=== PATIENT | female | born 1935 | race Caucasian/White ===

== ENCOUNTER 2023-03-27 21:14 | Emergency (ER) | payer MEDICARE ==
--- NOTE | 2023-03-27 21:35 | ERPHSYRPT ---
- History of Present Illness Time Seen by Provider: 03/27/23 21:29 Source: patient Exam Limitations: no limitations Physician History: Patient had a mechanical fall just prior to arrival. She has a large skin tear on her right arm extending from wrist to mid upper arm. She also has small skin tear on her left anterior knee. No active bleeding at this time. He has some pain over the left knee and right forearm and elbow. Patient also reports hitting the right side of her head without LOC. She was on aspirin daily until 3 days ago. She denies any focal weakness, changes in speech, numbness, tingling. Occurred: just prior to arrival Reason for Fall: slipped, fell from height Injuries/Pain Location: face, upper extremity (right), lower extremity (left) Loss of Consciousness: no loss of consciousness Quality: sharpness Severity of Pain-Max: mild Severity of Pain-Current: mild Modifying Factors: Improves With: rest. Worsens With: movement Associated Symptoms (Fall): extremity injury, headache, No abdominal pain, No back pain, No confusion, No dizziness, No lightheadedness, No nausea, No neck pain, No slurred speech, No vision changes Allergies/Adverse Reactions: amoxicillin Allergy (Unknown, Verified 03/27/23 21:48) Nausea clindamycin Allergy (Unknown, Verified 03/27/23 21:48) nitrofurantoin Allergy (Unknown, Verified 03/27/23 21:48) Nausea IV contrast dye Allergy (Unknown, Uncoded 03/27/23 21:48) Home Medications: Albuterol Sulfate [Proair Digihaler] 2 puffs IH Q6H PRN PRN 03/27/23 [History] Amlodipine Besylate 5 mg [Norvasc 5 mg] 5 mg PO HS 03/27/23 [History] Ascorbic Acid 500 mg [Vitamin C 500 MG] 500 mg PO DAILY 03/27/23 [History] Atorvastatin Calcium [Lipitor] 10 mg PO 3XW 03/27/23 [History] Biotin/Lutein [Biotin Plus 5,000 Mcg Tablet] 1 each PO 3XW 03/27/23 [History] Carvedilol 3.125 mg [Coreg 3.125 MG] 3.125 mg PO BID 03/27/23 [History] Cholecalciferol (Vitamin D3) [Weekly-D] 1,250 mcg PO WEEKLY 03/27/23 [History] Cyanocobalamin (Vitamin B-12) [Vitamin B-12] 1,000 mcg PO DAILY 03/27/23 [History] Desvenlafaxine Succinate [Pristiq ER] 25 mg PO DAILY 03/27/23 [History] Desvenlafaxine Succinate [Pristiq ER] 50 mg PO DAILY 03/27/23 [History] Ezetimibe 10 mg [Zetia 10 MG] 10 mg PO DAILY 03/27/23 [History] Fluticasone/Umeclidin/Vilanter [Trelegy Ellipta 200-62.5-25] 1 each IH DAILY 03/27/23 [History] Lactobacillus Acidophilus [Acidophilus Lactobacilli] 1 each PO DAILY 03/27/23 [History] Latanoprost [Xalatan] 1 drop OP EVENING MEAL 03/27/23 [History] Levothyroxine Sodium 25 Mcg [Synthroid 25 Mcg] 25 mcg PO DAILY 03/27/23 [History] Lisinopril/Hydrochlorothiazide [Lisinopril-Hctz 20-12.5 mg Tab] 1 each PO DAILY 03/27/23 [History] Modafinil 100 mg [Provigil 100MG Tablet] 100 mg PO QAM 03/27/23 [History] Multivitamin with Minerals [Myvitalife] 1 each PO DAILY 03/27/23 [History] Nitroglycerin 0.4 mg Tablet [Nitrostat 0.4 MG Tablet] 0.4 mg SL Q5MIN PRN MR X 3 PRN 03/27/23 [History] [place] 3 Polyunsaturated Fatty 1,200 mg PO DAILY 03/27/23 [History] Pyridoxine HCl 100 mg [Vitamin B-6 (Pyridoxine) 100 MG] 100 mg PO DAILY 03/27/23 [History] Torsemide 10 mg PO DAILY 03/27/23 [History] Tumeric 1,000 mg PO DAILY 03/27/23 [History] Hx Tetanus, Diphtheria Vaccination/Date Given: No Hx Influenza Vaccination/Date Given: Yes Hx Pneumococcal Vaccination/Date Given: No - Review of Systems Constitutional: No Symptoms Eyes: No Symptoms Ears, Nose, & Throat: No Symptoms Respiratory: No Symptoms Cardiac: No Symptoms Abdominal/Gastrointestinal: No Symptoms Genitourinary Symptoms: No Symptoms Musculoskeletal: Fall, Injury, Joint Pain (left knee, right elbow) Skin: Other (skin tear right arm, left knee) Neurological: Headache, No Dizziness, No Focal Weakness, No Parasthesia, No Sensory Changes, No Speech Changes Psychological: No Symptoms Endocrine: No Symptoms Hematologic/Lymphatic: Easy Bleeding, Easy Bruising, No Blood Clots Immunological/Allergic: No Symptoms All Other Systems: Reviewed and Negative - Past Medical History Pertinent Past Medical History: Yes Cardiac History: Hypertension Musculoskeletal History: Arthritis, Osteoporosis - Past Surgical History Past Surgical History: Yes Female Surgical History: Hysterectomy Other Surgical History: BLADDER TUCK - Social History Smoking Status: Never smoker Exposure to second hand smoke: No Drug Use: none Patient Lives Alone: No - Nursing Vital Signs Nursing Vital Signs: Initial Vital Signs Pulse Rate 77 03/27/23 21:21 Respiratory Rate 20 03/27/23 21:21 Blood Pressure 154/74 03/27/23 21:21 O2 Sat by Pulse Oximetry 98 03/27/23 21:21 Pain Scale Pain Intensity 7 - Noemy Coma Score Best Eye Response ([place]emy): (4) open spontaneously Best Verbal Response ([place]): (5) oriented Best Motor Response ([place]): (6) obeys commands [place] Total: 15 - Physical Exam General Appearance: no apparent distress, alert, thin Head Injury: ecchymosis (right forehead), swelling, tenderness Eye Exam: PERRL/EOMI, eyes nml inspection ENT Exam: airway nml, hearing grossly normal Neck Exam: supple, trachea midline, full range of motion, normal alignment, normal inspection Respiratory/Chest Exam: No respiratory distress Extremity Exam: normal range of motion, pain with movement (left knee, right elbow), No swelling Neurologic Exam: alert, oriented x 3, cooperative, account contact associate II-XII nml as tested, normal mood/affect, sensation nml, No motor deficits Skin Exam: other (skin tear right arm from wrist to mid upper arm, skin tear left anterior knee) SpO2 Interpretation: normal O2 Delivery: Room Air - Course Nursing assessment & vital signs reviewed: Yes - Radiology Exams Left Knee X-ray Interpretation: Interpreted by me, No Fracture Right Elbow X-ray Interpretation: Interpreted by me, No Fracture Right Forearm X-ray Interpretation: Interpreted by me, No Fracture - CT Exams Head CT Interpretation: Negative, Tele-radiologist Report Ordered Tests: Active Orders 24 hr Category Date Time Status ELBOW (2 VIEW) Stat Exams 03/27/23 21:38 Taken FOREARM Stat Exams 03/27/23 21:38 Taken HEAD WITHOUT CONTRAST [CT] Stat Exams 03/27/23 21:37 Completed KNEE (1 OR 2 VIEW) Stat Exams 03/27/23 21:38 Taken - Progress Progress: unchanged Progress Note: X-ray showed no acute fracture or dislocation. CT head showed no acute intracranial bleed. Skin tears were cleaned with Hibiclens, Xeroform placed, wrapped in Kerlix and Antony bandage. 03/27/23 22:57 Counseled pt/family regarding: rad results Medical Desision Making - Diagnostic Testing Diagnostic test were ordered, analyzed, and reviewed by me: Yes Radiological Interpretation: Interpreted by me, Reviewed by me, Teleradiologist Report - Risk of complications Low Risk: Low risk of morbidity from additional dx testing or treatment - Departure Departure Disposition: Home Clinical Impression: Fall, Skin tear of forearm without complication, Skin tear of left lower leg without complication, Left knee pain, Left elbow pain Condition: Good Critical Care Time: No Referrals: THO RUIZ FNP [NON-STAFF PHY W/O PRIVILEGES] - Follow up/PCP as directed Instructions: Wound Care (DC), Contusion (DC), Preventing falls in adults Prescriptions: Gauze Bandage [Kerlix] 1 each TP DAILY #30 Bismuth Tribromoph/Petrolatum [Xeroform 5"X9" Gauze Strip] 1 each TP DAILY #30
[2023-03-27 21:45] VITALS: TEMP 98.2
--- NOTE | 2023-03-27 22:55 | XRAY ---
CLINICAL HISTORY:fall, head trauma COMPARISON:None. TECHNIQUE:An axial non-contrast CT scan of the brain was performed from the skull base to the high parietal region. FINDINGS: Small right frontal subgaleal hematoma noted. Special attention was paid below that area, without finding abnormalities. No contrecoup lesions. No acute intracranial abnormality is present. No evidence of acute cortical infarction, hemorrhage, mass, or mass effect. There are periventricular areas of low attenuation throughout the deep white matter. Calcified foci in basal ganglia bilaterally, non-specific. Age-related central and cortical involutional brain changes are noted. No abnormal extra-axial fluid collections are present. The posterior fossa is unremarkable. The skull base and calvarium are intact. The included portions of the paranasal sinuses and mastoid air cells are clear. The atherosclerotic calcific disease is seen in the vertebral and internal carotid arteries. IMPRESSION: 1. No acute intracranial abnormality is present. 2. Volume loss and chronic microvascular ischemic changes of the periventricular white matter are noted. 3. No fractures are seen. 4. Small right frontal subgaleal hematoma. Electronically Signed by: Tierney Machuca MD. (03/27/2023 21:52:51 BATTERY TECHNICIAN)
[2023-03-27 23:07] VITALS: BP 155/61; PULSE 78; RESP 20; O2SAT 98
--- NOTE | 2023-03-28 07:35 | XRAY ---
Indication: Pain following fall. Comparison: None 2 view right forearm demonstrates osteopenia, anterior elbow laceration with subcutaneous air, and mild anterior distal forearm soft tissue swelling. No other bony, articular, or soft tissue abnormalities.
--- NOTE | 2023-03-28 07:37 | XRAY ---
Indication: Pain following fall. Comparison: None 2 view left knee demonstrates osteopenia and mild scattered vascular calcifications. No other bony, articular, or soft tissue abnormalities.
--- NOTE | 2023-03-28 07:37 | XRAY ---
Indication: Pain following fall. Comparison: None 2 view right elbow demonstrates osteopenia, anterior laceration with subcutaneous air, and 8 mm foreign body laterally. No other bony, articular, or soft tissue abnormalities.
== END 2023-03-27 23:35 | disposition home or self-care (01) ==
LOC: ED 21:14
DX: S51.811A Laceration without foreign body of right forearm, initial encounter (principal); S81.812A Laceration without foreign body, left lower leg, initial encounter; W19.XXXA Unspecified fall, initial encounter; M25.562 Pain in left knee; M25.522 Pain in left elbow; M25.521 Pain in right elbow; I10 Essential (primary) hypertension; Z79.899 Other long term (current) drug therapy
CPT/HCPCS: 70450; 73070; 73090; 73560; 99283

== ENCOUNTER 2024-01-12 10:57 | Observation (INO) | payer MEDICARE ==
--- NOTE | 2024-01-12 11:40 | ERPHSYRPT ---
- History of Present Illness Time Seen by Provider: 01/12/24 11:20 Source: patient Exam Limitations: no limitations Physician History: Pt states her dog injured the top of her left foot 3 weeks ago and her right foot 1 week ago with redness, tenderness and swelling the same day of the injuries. Pt states she fell yesterday in the kitchen injuring her left upper back, left leg and right hand; denies LOC and states she "just falls". Pt denies abdominal pain, vomiting, diarrhea; admits to nausea for the past 5 days. Allergies/Adverse Reactions: amoxicillin Allergy (Unknown, Verified 03/27/23 21:48) Nausea clindamycin Allergy (Unknown, Verified 03/27/23 21:48) nitrofurantoin Allergy (Unknown, Verified 03/27/23 21:48) Nausea Sulfa (Sulfonamide Antibiotics) Allergy (Verified 01/12/24 11:17) vancomycin Allergy (Verified 01/12/24 16:51) IV contrast dye Allergy (Unknown, Uncoded 03/27/23 21:48) Home Medications: Albuterol Sulfate [Proair Digihaler] 2 puffs IH Q6H PRN PRN 03/27/23 [History] Amlodipine Besylate 5 mg [Norvasc 5 mg] 5 mg PO HS 03/27/23 [History] Ascorbic Acid 500 mg [Vitamin C 500 MG] 500 mg PO DAILY 03/27/23 [History] Atorvastatin Calcium [Lipitor] 10 mg PO 3XW 03/27/23 [History] Biotin/Lutein [Biotin Plus 5,000 Mcg Tablet] 1 each PO 3XW 03/27/23 [History] Carvedilol 3.125 mg [Coreg 3.125 MG] 3.125 mg PO BID 03/27/23 [History] Cholecalciferol (Vitamin D3) [Weekly-D] 1,250 mcg PO WEEKLY 03/27/23 [History] Cyanocobalamin (Vitamin B-12) [Vitamin B-12] 1,000 mcg PO DAILY 03/27/23 [History] Desvenlafaxine Succinate [Pristiq ER] 25 mg PO DAILY 03/27/23 [History] Desvenlafaxine Succinate [Pristiq ER] 50 mg PO DAILY 03/27/23 [History] Ezetimibe 10 mg [Zetia 10 MG] 10 mg PO DAILY 03/27/23 [History] Fluticasone/Umeclidin/Vilanter [Trelegy Ellipta 200-62.5-25] 1 each IH DAILY 03/27/23 [History] Lactobacillus Acidophilus [Acidophilus Lactobacilli] 1 each PO DAILY 03/27/23 [History] Latanoprost [Xalatan] 1 drop OP EVENING MEAL 03/27/23 [History] Levothyroxine Sodium 25 Mcg [Synthroid 25 Mcg] 25 mcg PO DAILY 03/27/23 [History] Lisinopril/Hydrochlorothiazide [Lisinopril-Hctz 20-12.5 mg Tab] 1 each PO DAILY 03/27/23 [History] Modafinil 100 mg [Provigil 100MG Tablet] 100 mg PO QAM 03/27/23 [History] Multivitamin with Minerals [Myvitalife] 1 each PO DAILY 03/27/23 [History] Nitroglycerin 0.4 mg Tablet [Nitrostat 0.4 MG Tablet] 0.4 mg SL Q5MIN PRN MR X 3 PRN 03/27/23 [History] [place] 3 Polyunsaturated Fatty 1,200 mg PO DAILY 03/27/23 [History] Pyridoxine HCl 100 mg [Vitamin B-6 (Pyridoxine) 100 MG] 100 mg PO DAILY 03/27/23 [History] Torsemide 10 mg PO DAILY 03/27/23 [History] Tumeric 1,000 mg PO DAILY 03/27/23 [History] Hx Tetanus, Diphtheria Vaccination/Date Given: No Hx Influenza Vaccination/Date Given: Yes Hx Pneumococcal Vaccination/Date Given: No - Review of Systems Respiratory: Dyspnea Cardiac: No Chest Pain Abdominal/Gastrointestinal: Nausea, No Abdominal Pain, No Vomiting, No Diarrhea Musculoskeletal: Back Pain (left upper back) Neurological: Other (frequent falls) - Past Medical History Pertinent Past Medical History: Yes Neurological History: No Pertinent History ENT History: Cataracts Cardiac History: Peripheral Vascular Disease Respiratory History: COPD Endocrine Medical History: Other Musculoskeletal History: Osteoarthritis, Osteoporosis GI Medical History: No Pertinent History History: Renal Disease Psycho-Social History: No Pertinent History Female Reproductive Disorders: Other Other Medical History: PT. REPORTS MULTIPLE FALL HX. PT. WENT TO [facility] PT. RE PORTS DECREASED KIDNEY FUNCTION. PT. REPORTS STENT IN LE. PT. REPORTS R KNEE PN D/T OA. PT. HAD CORTIOSNE INJECTIONS IN R KNEE. HX BILATERAL LASHELL. BILATERAL ANKLE EDEMA. - Past Surgical History Past Surgical History: Yes Neuro Surgical History: No Pertinent History Cardiac: No Pertinent History Respiratory: No Pertinent History Gastrointestinal: No Pertinent History Genitourinary: No Pertinent History Musculoskeletal: Joint Replacement Female Surgical History: Hysterectomy Other Surgical History: BLADDER TUCK - Social History Smoking Status: Never smoker Exposure to second hand smoke: No Drug Use: none Patient Lives Alone: No - Nursing Vital Signs Nursing Vital Signs: Initial Vital Signs Temperature 96.8 F 01/12/24 11:20 Pulse Rate 72 01/12/24 11:20 Respiratory Rate 18 01/12/24 11:20 Blood Pressure 157/68 01/12/24 11:20 O2 Sat by Pulse Oximetry 95 01/12/24 11:20 Pain Scale Pain Intensity 0 - Physical Exam General Appearance: alert Eye Exam: eyes nml inspection Ears, Nose, Throat Exam: TMs normal, pharynx normal Neck Exam: normal inspection Respiratory Exam: normal breath sounds Cardiovascular Exam: normal heart sounds Gastrointestinal/Abdomen Exam: normal bowel sounds Back Exam: point tenderness (moderate tenderness over an erythematous area on the left upper back) Extremity Exam: tenderness (mild tenderness over both legs and feet with ~ 1 cm ulcer over each foot dorsum; mild edema and erythema of legs and feet; tenderness of right 5th knuckle.) Neurologic Exam: alert, cooperative - Radiology Exams Right Lower Leg X-ray Interpretation: Discussed w/ radiologist (See report) Right Foot X-ray Interpretation: Discussed w/ radiologist (See report) Left Lower Leg X-ray Interpretation: Discussed w/ radiologist (See report) Left Foot X-ray Interpretation: Discussed w/ radiologist (See report) - CT Exams Head CT Interpretation: Discussed w/radiologist (Continued nonacute senile brain) Chest CT Interpretation: Tele-radiologist Report (No acute findings) Abdomen/Pelvis CT Interpretation: Tele-radiologist Report (No acute findings) - Radiology Ultrasound Exam Venous Lower Extremity Ultrasound: discussed w/radiologist (Left and right legs negative for DVT.) Ordered Tests: Active Orders 24 hr Category Date Time Status EKG-ER Only STAT Care 01/12/24 11:45 Active IV Insertion STAT Care 01/12/24 11:45 Active ABDOMEN AND PELVIS W/0 CONTRAS [CT] Stat Exams 01/12/24 11:46 Completed CHEST WITHOUT CONTRAST [CT] Stat Exams 01/12/24 11:47 Completed FOOT (MINIMUM 3 VIEWS) Stat Exams 01/12/24 11:48 Completed FOOT (MINIMUM 3 VIEWS) Stat Exams 01/12/24 11:50 Completed HEAD WITHOUT CONTRAST [CT] Stat Exams 01/12/24 11:47 Completed LOWER LEG Stat Exams 01/12/24 11:48 Completed LOWER LEG Stat Exams 01/12/24 11:50 Completed VENOUS BILATERAL EXTREMITY [US] Stat Exams 01/12/24 11:51 Taken AMYLASE Stat Lab 01/12/24 11:45 Completed BLOOD CULTURE Stat Lab 01/12/24 12:11 Received CBC W DIFF Stat Lab 01/12/24 11:45 Completed CMP Stat Lab 01/12/24 11:45 Completed CULTURE,URINE Stat Lab 01/12/24 11:45 Received LIPASE Stat Lab 01/12/24 11:45 Completed TROPONIN Q4H Lab 01/12/24 11:45 Completed TROPONIN Q4H Lab 01/12/24 15:59 Completed TROPONIN Q4H Lab 01/12/24 19:45 Ordered UA W/RFX UR CULTURE Stat Lab 01/12/24 11:45 Completed Medication Summary Generic Name Dose Route Start Last Admin Trade Name Freq PRN Reason Stop Dose Admin Vancomycin HCl 1 gm in 200 mls @ 125 mls/hr 01/12/24 12:00 01/12/24 17:14 Vancomycin 1 Gram/200 Ml Bag IV 02/11/24 11:59 Infused Q12H JOELLEN Infusion Discontinued Medications Generic Name Dose Route Start Last Admin Trade Name Freq PRN Reason Stop Dose Admin Sodium Chloride 1,000 mls @ 999 mls/hr 01/12/24 11:45 01/12/24 13:13 Sodium Chloride 0.9% 1000 Ml IV 01/12/24 12:45 Infused .Q1H1M STA Infusion Ceftriaxone Sodium 1 gm in 100 mls @ 200 mls/hr 01/12/24 11:52 01/12/24 12:57 Rocephin 1 Gm / 100 Ml Nacl IV 01/12/24 12:21 Infused STAT ONE Infusion Sodium Chloride Confirm 01/12/24 11:55 Sodium Chloride 0.9% 1000 Ml Administered 01/12/24 11:56 Dose 1,000 mls @ ud .ROUTE .STK-MED ONE Ceftriaxone Sodium Confirm 01/12/24 12:11 Rocephin 1 Gm / 100 Ml Nacl Administered 01/12/24 12:12 Dose 1 gm in 100 mls @ ud IV .STK-MED ONE Sodium Chloride 1,000 mls @ 999 mls/hr 01/12/24 16:22 01/12/24 16:27 Sodium Chloride 0.9% 1000 Ml IV 01/12/24 17:22 999 mls/hr .Q1H1M STA Administration Sodium Chloride Confirm 01/12/24 16:24 Sodium Chloride 0.9% 1000 Ml Administered 01/12/24 16:25 Dose 1,000 mls @ ud .ROUTE .STK-MED ONE Ondansetron HCl 4 mg 01/12/24 11:45 01/12/24 12:03 Ondansetron Hcl 4 Mg/2 Ml Vial IV 01/12/24 11:46 4 mg STAT ONE Administration Ondansetron HCl Confirm 01/12/24 11:55 Ondansetron Hcl 4 Mg/2 Ml Vial Administered 01/12/24 11:56 Dose 4 mg .ROUTE .STK-MED ONE Lab/Rad Data: Laboratory Result Diagrams 01/12/24 11:45 01/12/24 11:45 Laboratory Results 01/12/24 01/12/24 01/12/24 Range/Units 15:59 11:45 11:45 WBC 6.5 (3.98-10.04) x10^3/uL RBC 3.66 L (3.93-5.22) x10^6/uL Hgb 11.5 (11.2-15.7) g/dL Hct 35.2 (34.1-44.9) % MCV 96.2 H (79.4-94.8) fL MCH 31.4 (25.6-32.2) pg MCHC 32.7 (32.2-35.5) g/dL RDW 13.7 (11.7-14.4) % Plt Count 218 (182-369) x10^3/uL MPV 11.8 (9.4-12.3) fL Gran % 71.0 (34.0-71.1) % Immature Gran % (Auto) 0.2 (0.001-0.429) % Nucleat RBC Rel Count 0.0 (0.00-0.2) % Eos # (Auto) 0.16 (0.04-0.36) x10^3/uL Immature Gran # (Auto) 0.01 (0.001-0.031) x10^3u/L Absolute Lymphs (auto) 0.94 L (1.18-3.74) x10^3/uL Absolute Monos (auto) 0.71 (0.24-0.86) x10^3/uL Absolute Nucleated RBC 0.00 (0.00-0.012) x10^3u/L Lymphocytes % 14.5 L (19.3-51.7) % Monocytes % 11.0 (4.7-12.5) % Eosinophils % 2.5 (0.7-5.8) % Basophils % 0.8 (0.1-1.2) % Absolute Granulocytes 4.60 (1.56-6.13) x10^3/uL Basophils # 0.05 (0.01-0.08) x10^3/uL Sodium 137 (135-145) mmol/L Potassium 4.7 (3.5-5.1) mmol/L Chloride 103 (98-107) mmol/L Carbon Dioxide 24 (22-30) mmol/L Anion Gap 14.7 (5-15) MEQ/L BUN 57 H (7-17) mg/dL Creatinine 2.33 H (0.52-1.04) mg/dL Estimated GFR 19.8 ML/MIN Glucose 98 (74-106) mg/dL Calcium 9.5 (8.4-10.2) mg/dL Total Bilirubin 0.40 (0.2-1.3) mg/dL AST 57 H (14-36) U/L ALT 39 H (0-35) U/L Alkaline Phosphatase 56 (38-126) U/L Troponin I < 0.012 < 0.012 (0.000-0.033) ng/mL Serum Total Protein 6.5 (6.3-8.2) g/dL Albumin 3.9 (3.5-5.0) g/dL Amylase 143 H (30-110) U/L Lipase 248 (23-300) U/L Urine Color (Yellow) Urine Appearance (Clear) Urine pH (4.6-8.0) Ur Specific [place] (1.005-1.030) Urine Protein (Negative) Urine Glucose (UA) (Negative) mg/dL Urine Ketones (Negative) Urine Blood (Negative) Urine Nitrite (Negative) Urine Bilirubin (Negative) Urine Urobilinogen (0.2) mg/dL Ur Leukocyte Esterase (Negative) Urine Microscopic RBC (0-5) /HPF Urine Microscopic WBC (0-5) /HPF Ur Epithelial Cells (None Seen) /HPF Urine Bacteria (None Seen) /HPF Urine Culture Reflexed (NO) 01/12/24 Range/Units 11:45 WBC (3.98-10.04) x10^3/uL RBC (3.93-5.22) x10^6/uL Hgb (11.2-15.7) g/dL Hct (34.1-44.9) % MCV (79.4-94.8) fL MCH (25.6-32.2) pg MCHC (32.2-35.5) g/dL RDW (11.7-14.4) % Plt Count (182-369) x10^3/uL MPV (9.4-12.3) fL Gran % (34.0-71.1) % Immature Gran % (Auto) (0.001-0.429) % Nucleat RBC Rel Count (0.00-0.2) % Eos # (Auto) (0.04-0.36) x10^3/uL Immature Gran # (Auto) (0.001-0.031) x10^3u/L Absolute Lymphs (auto) (1.18-3.74) x10^3/uL Absolute Monos (auto) (0.24-0.86) x10^3/uL Absolute Nucleated RBC (0.00-0.012) x10^3u/L Lymphocytes % (19.3-51.7) % Monocytes % (4.7-12.5) % Eosinophils % (0.7-5.8) % Basophils % (0.1-1.2) % Absolute Granulocytes (1.56-6.13) x10^3/uL Basophils # (0.01-0.08) x10^3/uL Sodium (135-145) mmol/L Potassium (3.5-5.1) mmol/L Chloride (98-107) mmol/L Carbon Dioxide (22-30) mmol/L Anion Gap (5-15) MEQ/L BUN (7-17) mg/dL Creatinine (0.52-1.04) mg/dL Estimated GFR ML/MIN Glucose (74-106) mg/dL Calcium (8.4-10.2) mg/dL Total Bilirubin (0.2-1.3) mg/dL AST (14-36) U/L ALT (0-35) U/L Alkaline Phosphatase (38-126) U/L Troponin I (0.000-0.033) ng/mL Serum Total Protein (6.3-8.2) g/dL Albumin (3.5-5.0) g/dL Amylase (30-110) U/L Lipase (23-300) U/L Urine Color Yellow (Yellow) Urine Appearance Clear (Clear) Urine pH 6.5 (4.6-8.0) Ur Specific [place] 1.010 (1.005-1.030) Urine Protein Negative (Negative) Urine Glucose (UA) Negative (Negative) mg/dL Urine Ketones Negative (Negative) Urine Blood Negative (Negative) Urine Nitrite Positive A (Negative) Urine Bilirubin Negative (Negative) Urine Urobilinogen 0.2 (0.2) mg/dL Ur Leukocyte Esterase Large A (Negative) Urine Microscopic RBC 0-2 (0-5) /HPF Urine Microscopic WBC 51-100 A (0-5) /HPF Ur Epithelial Cells Moderate A (None Seen) /HPF Urine Bacteria Many A (None Seen) /HPF Urine Culture Reflexed YES (NO) - Progress Progress: unchanged Discussed with : Emile (Spoke with & discussed pt with Dr. Conway([id number]) - OBS) Counseled pt/family regarding: lab results, diagnosis, rad results Medical Desision Making - Diagnostic Testing Diagnostic test were ordered, analyzed, and reviewed by me: Yes Radiological Interpretation: Discussed w/ radiologist - Departure Departure Disposition: Observation Clinical Impression: Cellulitis of legs & feet, UTI (urinary tract infection), Nausea, Contusion of upper back, Contusion of left leg, Fall Condition: Stable Critical Care Time: No Referrals: MASSIEL RODRÍGUEZ MD [Primary Care Provider] - Follow up/PCP as directed
[2024-01-12] MEDS ORDERED: Zofran 4 MG/2 ML VIAL ONE (11:55)
[2024-01-12] MEDS ORDERED: Sodium Chloride 0.9% 1000 ML 1,000 ML ONE ×2 (11:55→16:24)
[2024-01-12] MEDS: Sodium Chloride 0.9% 1000 ML 1,000 ML IV STA ×2 (12:02→16:27)
[2024-01-12] MEDS: Zofran 4 MG/2 ML VIAL IV ONE (12:03)
[2024-01-12] MEDS ORDERED: ROCEPHIN 1 GM / 100 ML NaCl 1 GM/100 ML IVPB IV ONE (12:11)
[2024-01-12] MEDS: ROCEPHIN 1 GM / 100 ML NaCl 1 GM/100 ML IVPB IV ONE (12:12)
[2024-01-12 12:21] LABS: BASOPHIL % 0.8 % (0.1-1.2); Basophil (Absolute #) 0.05 x10^3/uL (0.01-0.08); Eosinophil % 2.5 % (0.7-5.8); Eosinophil (Absolute #) 0.16 x10^3/uL (0.04-0.36); Hematocrit 35.2 % (34.1-44.9); Hemoglobin 11.5 g/dL (11.2-15.7); IMMATURE GRAN # 0.01 x10^3u/L (0.001-0.031); IMMATURE GRAN % 0.2 % (0.001-0.429); Lymphocyte (Absolute #) 0.94 x10^3/uL (1.18-3.74); Lymphocytes % 14.5 % (19.3-51.7); Mean Cell Volume 96.2 fL (79.4-94.8); Mean Corpuscular Hemoglobin 31.4 pg (25.6-32.2); Mean Corpuscular Hgb Concent. 32.7 g/dL (32.2-35.5); Mean Platelet Volume 11.8 fL (9.4-12.3); Monocyte (Absolute #) 0.71 x10^3/uL (0.24-0.86); Platelet Count 218 x10^3/uL (182-369); Red Blood Count 3.66 x10^6/uL (3.93-5.22); Red Cell Distribution Width 13.7 % (11.7-14.4); White Blood Count 6.5 x10^3/uL (3.98-10.04)
[2024-01-12 12:39] LABS: ALBUMIN 3.9 g/dL (3.5-5.0); ALKALINE PHOSPHATASE 56 U/L (38-126); AMYLASE 143 U/L (30-110); ANION GAP 14.7 MEQ/L (5-15); BLOOD UREA NITROGEN 57 mg/dL (7-17); CHLORIDE 103 mmol/L (98-107); Calcium 9.5 mg/dL (8.4-10.2); Carbon Dioxide 24 mmol/L (22-30); Creatinine 1 2.33 mg/dL (0.52-1.04); EST GLOMERULAR FILTRATION RATE 19.8 ML/MIN; Glucose 98 mg/dL (74-106); LIPASE 248 U/L (23-300); Potassium 4.7 mmol/L (3.5-5.1); SGOT/AST 57 U/L (14-36); SGPT/ALT 39 U/L (0-35); SODIUM 137 mmol/L (135-145); TROPONIN < 0.012 ng/mL (0.000-0.033); Total Protein 6.5 g/dL (6.3-8.2)
--- NOTE | 2024-01-12 12:42 | XRAY ---
Indication: Pain following fall days ago. Comparison: None 2 view left lower leg demonstrates osteopenia and mild distal superficial femoral artery calcifications. No other bony, articular, or soft tissue abnormalities.
--- NOTE | 2024-01-12 12:44 | XRAY ---
Indication: Pain following fall days ago. Comparison: None 2 view right lower leg demonstrates osteopenia, mild distal superficial femoral artery calcifications, and proximal popliteal artery stent. No other bony, articular, or soft tissue abnormalities.
--- NOTE | 2024-01-12 12:44 | XRAY ---
Indication: Pain following fall days ago. Comparison: None 3 nonweightbearing views left foot demonstrates osteopenia. No other bony, articular, or soft tissue abnormalities.
--- NOTE | 2024-01-12 12:46 | XRAY ---
Indication: Pain following fall days ago. Comparison: None 3 nonweightbearing views right foot demonstrates osteopenia, mild 1st/2nd MTP degenerative changes, and incidental tiny navicular/cuboid accessory ossicles. No other bony, articular, or soft tissue abnormalities
[2024-01-12 12:56] LABS: Appearance Clear (Clear); Bilirubin Negative (Negative); Blood Negative (Negative); Glucose, Urine Negative (Negative); Ketones Negative (Negative); Leukocyte Esterase Large (Negative); Nitrite Positive (Negative); Ph 6.5 (4.6-8.0); Protein,Urine Dip Negative (Negative); Urobilinogen 0.2 mg/dL (0.2)
--- NOTE | 2024-01-12 13:28 | XRAY ---
Indication: Status post fall. Multiple contiguous axial images obtained through the head without contrast. Comparison: March 27, 2023. Age-appropriate global atrophy and mild periventricular degenerative micro-ischemia bilaterally. No acute intracranial hemorrhage, abnormal extra-axial fluid collection, or mass effect. Fourth ventricle is midline. Diffuse ventricle prominence unchanged. Bony calvarium intact. Visualized paranasal sinuses and mastoid air cells are clear. Impression: Continued nonacute senile brain.
--- NOTE | 2024-01-12 13:32 | XRAY ---
Indication: Pain following fall. Dyspnea. Multiple contiguous axial images obtained through the chest without contrast. Comparison: None Moderate diffuse centrilobular pulmonary emphysema, scattered fibrosis/scarring, mild left lower lobe subsegmental atelectasis/scarring, and a few right lung calcified granulomas. Peripheral left upper lobe demonstrates 4 mm noncalcified nodule. No infiltrate, effusion, or pneumothorax. Heart is not enlarged with scattered coronary calcifications. Aorta mildly atherosclerotic without aneurysm. Tiny right suprahilar calcified nodes. No pathologic mediastinal lymphadenopathy. Bony thorax intact with osteopenia and mild degenerative changes throughout the spine.. Superior endplate T5 demonstrates concave deformity either remote endplate fracture versus Schmorl node. CT abdomen/pelvis reported separately. Impression: 1. 4 mm indeterminate left upper lobe noncalcified micronodule. Findings too small for PET/CT. Recommend follow-up per Fleischner guidelines. 2. Chronic findings including pulmonary emphysema, atelectasis/fibrosis/scarring, arteriosclerotic disease, chronic bony findings, and old granulomatous disease. 3. No acute findings on this noncontrast exam.
--- NOTE | 2024-01-12 13:36 | XRAY ---
Indication: Nausea. Status post fall. Multiple contiguous axial images obtained through the abdomen and pelvis without contrast. Comparison: None CT chest reported separately. Bilateral hip arthroplasty versus beam artifact limiting these levels. Noncontrasted stomach and bowel loops appear nonobstructed. There is moderate diffuse scattered colonic fecal debris throughout. Scattered sigmoid diverticulosis without diverticulitis. Previous hysterectomy. No free fluid/air. Remaining liver, gallbladder, pancreas, spleen, adrenal glands, kidneys, ureters, and bladder are unremarkable for noncontrast exam. Moderate scattered aortoiliac calcifications without AAA. Osseous structures intact with osteopenia, mild/moderate multilevel degenerative spondylosis greatest lower lumbar spine, 3 mm anterolisthesis L3 on L4, and 5 mm anterolisthesis L4 on L5. Impression: 1. Beam artifact from bilateral hip arthroplasty. 2. Moderate diffuse fecal stasis. 3. Chronic findings including sigmoid diverticulosis, arteriosclerotic disease, and chronic bony findings. 4. No acute findings on this noncontrast exam.
[2024-01-12 14:27] LABS: WBC 51-100 /HPF (0-5)
[2024-01-12 14:29] LABS: Bacteria Many /HPF (None Seen); Epithelial Cells Moderate /HPF (None Seen); RBC 0-2 /HPF (0-5)
[2024-01-12 14:31] LABS: ADD URINE CULTURE? YES (NO)
[2024-01-12] MEDS ORDERED: VANCOMYCIN 1 GRAM/200 ML BAG 1 GM/200 ML PIGGYBACK IV ONE (15:25)
[2024-01-12] MEDS: VANCOMYCIN 1 GRAM/200 ML BAG 1 GM/200 ML PIGGYBACK IV SCH (15:26)
--- NOTE | 2024-01-12 18:51 | XRAY ---
Indication: Swelling and pain. Two-dimensional sonogram and color Doppler imaging major venous vessels left and right leg performed. Comparison: None No thrombus seen in the examined deep venous vessels left and right leg including greater saphenous vein. Veins demonstrate normal compressibility. Venous waveforms are normal with and without augmentation. Impression: Left and right legs negative for DVT.
[2024-01-12] MEDS ORDERED: TYLENOL 325 MG PO PRN (19:35)
[2024-01-12] MEDS ORDERED: Zofran 4 MG/2 ML VIAL IV PRN (19:35)
[2024-01-12] MEDS ORDERED: Docusate Sodium 100 MG PO PRN (20:05)
[2024-01-12] MEDS ORDERED: Nitrostat 0.4 MG Tablet SL PRN (20:40)
[2024-01-12] MEDS ORDERED: NON-FORMULARY ITEM (Atorvastatin Calcium 10 MG Tablet) PO SCH (20:45)
[2024-01-12] MEDS ORDERED: BIOTIN PO SCH (20:45)
[2024-01-12] MEDS ORDERED: CHOLECALCIFEROL 1250 MCG PO SCH (20:45)
[2024-01-12] MEDS ORDERED: LUTEIN PO SCH (20:45)
[2024-01-12] MEDS: Sodium Chloride 0.9% 1000 ML 1,000 ML IV SCH (21:59)
[2024-01-12] MEDS: Zyvox 600 MG IV PREMIX*** 300 ML IV SCH (22:41)
--- NOTE | 2024-01-12 22:41 | PCM.HP ---
History of Present Illness - Chief Complaint Chief Complaint: Cellulitis of legs & feet; UTI; Nausea; Fall; Contusion of upper back Date: 01/12/24 History of Present Illness: is a 88 year old female who presented to the ED stating that her dog injured the top of her left foot 3 weeks ago and her right foot 1 week ago with redness, and she developed tenderness and swelling the same day of the injuries. She states that she was recently placed on oral doxycycline without improvement. Additonally, the patient states she fell yesterday in the kitchen injuring her left upper back, left leg and right hand; denies LOC and states she "just falls". Pt denies abdominal pain, vomiting, diarrhea; admits to nausea for the past 5 days. In the ED, there was concern about bilateral leg cellulitis and also a UTI. The patient developed some erythematous skin streaking after receiving vancomycin, so this was discontinued. - Review of Systems Constitutional: No Symptoms Eyes: No Symptoms Ears, Nose, & Throat: No Symptoms Respiratory: No Symptoms Cardiac: Edema Abdominal/Gastrointestinal: No Symptoms Genitourinary Symptoms: No Symptoms Musculoskeletal: Fall, Injury Skin: Rash Neurological: No Symptoms Psychological: No Symptoms Endocrine: No Symptoms Hematologic/Lymphatic: No Symptoms Immunological/Allergic: No Symptoms All Other Systems: Reviewed and Negative Medications & Allergies Home Medications: Home Medication List Albuterol Sulfate [Proair Digihaler] 2 puffs IH Q6H PRN PRN 03/27/23 [History Confirmed 03/27/23] Ascorbic Acid 500 mg [Vitamin C 500 MG] 500 mg PO DAILY 03/27/23 [History Confirmed 01/12/24] Atorvastatin Calcium [Lipitor] 5 mg PO 3XW 03/27/23 [History Confirmed 01/12/24] Biotin/Lutein [Biotin Plus 5,000 Mcg Tablet] 1 each PO 3XW 03/27/23 [History Confirmed 01/12/24] Carvedilol 3.125 mg [Coreg 3.125 MG] 3.125 mg PO BID 03/27/23 [History Confirmed 01/12/24] Cholecalciferol (Vitamin D3) [Weekly-D] 1,250 mcg PO WEEKLY 03/27/23 [History Confirmed 01/12/24] Cyanocobalamin (Vitamin B-12) [Vitamin B-12] 1,000 mcg PO DAILY 03/27/23 [History Confirmed 01/12/24] Desvenlafaxine Succinate [Pristiq ER] 25 mg PO DAILY 03/27/23 [History Confirmed 01/12/24] Desvenlafaxine Succinate [Pristiq ER] 50 mg PO DAILY 03/27/23 [History Confirmed 01/12/24] Ezetimibe 10 mg [Zetia 10 MG] 10 mg PO DAILY 03/27/23 [History Confirmed 01/12/24] Fluticasone/Umeclidin/Vilanter [Trelegy Ellipta 200-62.5-25] 1 each IH DAILY 03/27/23 [History Confirmed 01/12/24] Lactobacillus Acidophilus [Acidophilus Lactobacilli] 1 each PO DAILY 03/27/23 [History Confirmed 01/12/24] Latanoprost [Xalatan] 1 drop OP EVENING MEAL 03/27/23 [History Confirmed 01/12/24] Levothyroxine Sodium 25 Mcg [Synthroid 25 Mcg] 25 mcg PO DAILY 03/27/23 [History Confirmed 01/12/24] Multivitamin with Minerals [Myvitalife] 1 each PO DAILY 03/27/23 [History Confirmed 01/12/24] Nitroglycerin 0.4 mg Tablet [Nitrostat 0.4 MG Tablet] 0.4 mg SL Q5MIN PRN MR X 3 PRN 03/27/23 [History Confirmed 01/12/24] Ranson 3 Polyunsaturated Fatty 1,200 mg PO DAILY 03/27/23 [History Confirmed 01/12/24] Pyridoxine HCl 100 mg [Vitamin B-6 (Pyridoxine) 100 MG] 100 mg PO DAILY 03/27/23 [History Confirmed 01/12/24] Torsemide 10 mg PO DAILY 03/27/23 [History Confirmed 01/12/24] Tumeric 1,000 mg PO DAILY 03/27/23 [History Confirmed 01/12/24] Amlodipine Besylate 2.5 mg PO HS 01/12/24 [History Confirmed 01/12/24] Aspirin EC 81 mg [Ecotrin 81 mg] 1 tablet PO 3XW 01/12/24 [History Confirmed 01/12/24] Lisinopril/Hydrochlorothiazide [Lisinopril-Hctz 20-25 mg Tab] 1 tablet PO DAILY 01/12/24 [History Confirmed 01/12/24] Allergies/Adverse Reactions: Allergies Allergy/AdvReac Type Severity Reaction Status Date / Time amoxicillin Allergy Unknown Nausea Verified 03/27/23 21:48 clindamycin Allergy Unknown Verified 03/27/23 21:48 nitrofurantoin Allergy Unknown Nausea Verified 03/27/23 21:48 Sulfa (Sulfonamide Allergy Verified 01/12/24 11:17 Antibiotics) vancomycin Allergy Verified 01/12/24 16:51 IV contrast dye Allergy Unknown Uncoded 03/27/23 21:48 - Past Medical History Past Medical History: Yes Neurological History: No Pertinent History ENT History: Cataracts Cardiac History: Peripheral Vascular Disease Respiratory History: COPD Endocrine Medical History: Hypothyroidism Musculoskelatal History: Osteoarthritis, Osteoporosis GI Medical History: No Pertinent History History: Renal Disease Pyscho-Social History: Depression Reproductive Disorders: Other Comment: Bilateral hip replacement, stent LLE - Past Surgical History Past Surgical History: Yes Neuro Surgical History: No Pertinent History Cardiac History: Vascular Surgery Respiratory Surgery: No Pertinent History GI Surgical History: No Pertinent History Genitourinary Surgical Hx: No Pertinent History Musculskeletal Surgical Hx: Joint Replacement Female Surgical History: Hysterectomy Other Surgical History: bladder tuck, bilateral hip replacement, stent LLE - Social History Smoking Status: Former smoker Exposure to second hand smoke: No Alcohol: None Drug Use: none - Social Determinants of Health Will the patient participate in the screening: Yes Do you worry about a steady place to live?: No Do you have any problems with any of the following?: No known problems In the past 12 months,have you had to go without utilities?: No Have you or anyone in your house had to go without enough: No Transportation Issues: No Has anyone in your support network made you feel unsafe?: No Does the patient want assistance with any of the above?: No - Physical Exam Vital Signs: Vital Signs - 24 hr Temp Pulse Resp BP BP Pulse Ox 01/12/24 19:33 96.6 F 73 18 140/64 92 L 01/12/24 17:01 82 18 113/89 90 L 01/12/24 16:32 80 23 128/59 01/12/24 16:07 76 21 127/64 93 L 01/12/24 16:03 73 19 77 L 01/12/24 15:31 79 22 124/48 93 L 01/12/24 15:00 80 22 130/64 95 01/12/24 14:30 86 25 H 163/71 85 L 01/12/24 14:00 79 22 132/90 88 L 01/12/24 13:58 85 18 148/56 95 01/12/24 13:30 79 18 159/75 92 L 01/12/24 13:07 84 22 156/56 71 L 01/12/24 13:06 78 L 01/12/24 12:30 143/57 01/12/24 12:01 70 19 152/76 97 01/12/24 11:20 96.8 F 72 18 157/68 95 General Appearance: no apparent distress, alert Neurologic Exam: alert, oriented x 3, cooperative, environmental planning engineer II-XII nml as tested, normal mood/affect, nml cerebellar function Eye Exam: PERRL/EOMI, eyes nml inspection Ears, Nose, Throat Exam: normal ENT inspection Neck Exam: normal inspection, non-tender, supple, full range of motion Respiratory Exam: normal breath sounds, lungs clear Cardiovascular Exam: regular rate/rhythm, normal heart sounds, edema (bilateral pitting ankle edema noted) Gastrointestinal/Abdomen Exam: soft, normal bowel sounds Back Exam: normal range of motion Extremity Exam: normal range of motion, pedal edema, swelling Skin Exam: rash (erythema noted on both feet (left more confluent and prominent compared to right)) Results - Labs Lab/Micro Results: Lab Results-Last 24 Hours 01/12/24 01/12/24 01/12/24 Range/Units 11:45 11:45 11:45 WBC 6.5 (3.98-10.04) x10^3/uL RBC 3.66 L (3.93-5.22) x10^6/uL Hgb 11.5 (11.2-15.7) g/dL Hct 35.2 (34.1-44.9) % MCV 96.2 H (79.4-94.8) fL MCH 31.4 (25.6-32.2) pg MCHC 32.7 (32.2-35.5) g/dL RDW 13.7 (11.7-14.4) % Plt Count 218 (182-369) x10^3/uL MPV 11.8 (9.4-12.3) fL Gran % 71.0 (34.0-71.1) % Immature Gran % (Auto) 0.2 (0.001-0.429) % Nucleat RBC Rel Count 0.0 (0.00-0.2) % Eos # (Auto) 0.16 (0.04-0.36) x10^3/uL Immature Gran # (Auto) 0.01 (0.001-0.031) x10^3u/L Absolute Lymphs (auto) 0.94 L (1.18-3.74) x10^3/uL Absolute Monos (auto) 0.71 (0.24-0.86) x10^3/uL Absolute Nucleated RBC 0.00 (0.00-0.012) x10^3u/L Lymphocytes % 14.5 L (19.3-51.7) % Monocytes % 11.0 (4.7-12.5) % Eosinophils % 2.5 (0.7-5.8) % Basophils % 0.8 (0.1-1.2) % Absolute Granulocytes 4.60 (1.56-6.13) x10^3/uL Basophils # 0.05 (0.01-0.08) x10^3/uL Sodium 137 (135-145) mmol/L Potassium 4.7 (3.5-5.1) mmol/L Chloride 103 (98-107) mmol/L Carbon Dioxide 24 (22-30) mmol/L Anion Gap 14.7 (5-15) MEQ/L BUN 57 H (7-17) mg/dL Creatinine 2.33 H (0.52-1.04) mg/dL Estimated GFR 19.8 ML/MIN Glucose 98 (74-106) mg/dL Calcium 9.5 (8.4-10.2) mg/dL Total Bilirubin 0.40 (0.2-1.3) mg/dL AST 57 H (14-36) U/L ALT 39 H (0-35) U/L Alkaline Phosphatase 56 (38-126) U/L Troponin I < 0.012 (0.000-0.033) ng/mL Serum Total Protein 6.5 (6.3-8.2) g/dL Albumin 3.9 (3.5-5.0) g/dL Prealbumin (17.6-36.0) mg/dL Amylase 143 H (30-110) U/L Lipase 248 (23-300) U/L Urine Color Yellow (Yellow) Urine Appearance Clear (Clear) Urine pH 6.5 (4.6-8.0) Ur Specific [place] 1.010 (1.005-1.030) Urine Protein Negative (Negative) Urine Glucose (UA) Negative (Negative) mg/dL Urine Ketones Negative (Negative) Urine Blood Negative (Negative) Urine Nitrite Positive A (Negative) Urine Bilirubin Negative (Negative) Urine Urobilinogen 0.2 (0.2) mg/dL Ur Leukocyte Esterase Large A (Negative) Urine Microscopic RBC 0-2 (0-5) /HPF Urine Microscopic WBC 51-100 A (0-5) /HPF Ur Epithelial Cells Moderate A (None Seen) /HPF Urine Bacteria Many A (None Seen) /HPF Urine Culture Reflexed YES (NO) 01/12/24 01/12/24 01/12/24 Range/Units 15:59 19:40 19:40 WBC (3.98-10.04) x10^3/uL RBC (3.93-5.22) x10^6/uL Hgb (11.2-15.7) g/dL Hct (34.1-44.9) % MCV (79.4-94.8) fL MCH (25.6-32.2) pg MCHC (32.2-35.5) g/dL RDW (11.7-14.4) % Plt Count (182-369) x10^3/uL MPV (9.4-12.3) fL Gran % (34.0-71.1) % Immature Gran % (Auto) (0.001-0.429) % Nucleat RBC Rel Count (0.00-0.2) % Eos # (Auto) (0.04-0.36) x10^3/uL Immature Gran # (Auto) (0.001-0.031) x10^3u/L Absolute Lymphs (auto) (1.18-3.74) x10^3/uL Absolute Monos (auto) (0.24-0.86) x10^3/uL Absolute Nucleated RBC (0.00-0.012) x10^3u/L Lymphocytes % (19.3-51.7) % Monocytes % (4.7-12.5) % Eosinophils % (0.7-5.8) % Basophils % (0.1-1.2) % Absolute Granulocytes (1.56-6.13) x10^3/uL Basophils # (0.01-0.08) x10^3/uL Sodium (135-145) mmol/L Potassium (3.5-5.1) mmol/L Chloride (98-107) mmol/L Carbon Dioxide (22-30) mmol/L Anion Gap (5-15) MEQ/L BUN (7-17) mg/dL Creatinine (0.52-1.04) mg/dL Estimated GFR ML/MIN Glucose (74-106) mg/dL Calcium (8.4-10.2) mg/dL Total Bilirubin (0.2-1.3) mg/dL AST (14-36) U/L ALT (0-35) U/L Alkaline Phosphatase (38-126) U/L Troponin I < 0.012 < 0.012 (0.000-0.033) ng/mL Serum Total Protein (6.3-8.2) g/dL Albumin (3.5-5.0) g/dL Prealbumin 20.41 (17.6-36.0) mg/dL Amylase (30-110) U/L Lipase (23-300) U/L Urine Color (Yellow) Urine Appearance (Clear) Urine pH (4.6-8.0) Ur Specific [place] (1.005-1.030) Urine Protein (Negative) Urine Glucose (UA) (Negative) mg/dL Urine Ketones (Negative) Urine Blood (Negative) Urine Nitrite (Negative) Urine Bilirubin (Negative) Urine Urobilinogen (0.2) mg/dL Ur Leukocyte Esterase (Negative) Urine Microscopic RBC (0-5) /HPF Urine Microscopic WBC (0-5) /HPF Ur Epithelial Cells (None Seen) /HPF Urine Bacteria (None Seen) /HPF Urine Culture Reflexed (NO) - Radiology Impressions Radiology Exams & Impressions: Radiology Procedures Category Date Time Status ABDOMEN AND PELVIS W/0 CONTRAS [CT] Stat Exams 01/12/24 11:46 Completed CHEST WITHOUT CONTRAST [CT] Stat Exams 01/12/24 11:47 Completed FOOT (MINIMUM 3 VIEWS) Stat Exams 01/12/24 11:48 Completed FOOT (MINIMUM 3 VIEWS) Stat Exams 01/12/24 11:50 Completed HEAD WITHOUT CONTRAST [CT] Stat Exams 01/12/24 11:47 Completed LOWER LEG Stat Exams 01/12/24 11:48 Completed LOWER LEG Stat Exams 01/12/24 11:50 Completed VENOUS BILATERAL EXTREMITY [US] Stat Exams 01/12/24 11:51 Completed Assessment/Plan (1) Cellulitis and abscess of left leg Current Visit: Yes Status: Acute Assessment & Plan: Will place on Zyvox. Possible vancomycin reaction in ED noted. Reviewed documented allergy profile with patient; many of the listed reactions are more consistent with adverse reactions rather than allergic reactions. Will catherine borders and follow clinical course. Code(s): L03.116 - CELLULITIS OF LEFT LOWER LIMB; L02.416 - CUTANEOUS ABSCESS OF LEFT LOWER LIMB (2) MORAIMA (acute kidney injury) Current Visit: Yes Status: Acute Assessment & Plan: Hold torsemide, ACEI/HCTZ, and gently administer IV fluids. Follow renal function. Patient sees Dr. Velez. Code(s): N17.9 - ACUTE KIDNEY FAILURE, UNSPECIFIED (3) Fall Current Visit: Yes Status: Acute Assessment & Plan: Mobilize with PT. Patient has a history of frequent falls Code(s): W19.XXXA - UNSPECIFIED FALL, INITIAL ENCOUNTER (4) UTI (urinary tract infection) Current Visit: Yes Status: Acute Assessment & Plan: Antibiotics. Culture collected. Code(s): N39.0 - URINARY TRACT INFECTION, SITE NOT SPECIFIED Telemedicine Encounter - Telemedicine Encounter Telemedicine Encounter: The entirety of this encounter was performed via Telemedicine"
[2024-01-12] MEDS: NORVASC 5 MG PO SCH (22:42)
[2024-01-12] MEDS: Coreg 3.125 MG PO SCH (22:42)
[2024-01-13] MEDS: NON-FORMULARY ITEM (Amlodipine Besylate [Amlodipine Besylate] 2.5 MG Tablet) PO SCH (00:06)
[2024-01-13] MEDS: VANCOMYCIN 1 GRAM/200 ML BAG 1 GM/200 ML PIGGYBACK IV SCH (00:06)
[2024-01-13 04:56] LABS: Absolute Neutrophil Ct (ANC) 2.96 x10^3/uL (1.56-6.13); BASOPHIL % 0.8 % (0.1-1.2); Basophil (Absolute #) 0.04 x10^3/uL (0.01-0.08); Eosinophil % 4.2 % (0.7-5.8); Eosinophil (Absolute #) 0.21 x10^3/uL (0.04-0.36); Hematocrit 30.5 % (34.1-44.9); IMMATURE GRAN # 0.01 x10^3u/L (0.001-0.031); IMMATURE GRAN % 0.2 % (0.001-0.429); Lymphocyte (Absolute #) 0.99 x10^3/uL (1.18-3.74); Lymphocytes % 19.6 % (19.3-51.7); Mean Cell Volume 97.4 fL (79.4-94.8); Mean Corpuscular Hemoglobin 31.9 pg (25.6-32.2); Mean Corpuscular Hgb Concent. 32.8 g/dL (32.2-35.5); Mean Platelet Volume 11.6 fL (9.4-12.3); Monocyte (Absolute #) 0.84 x10^3/uL (0.24-0.86); Monocytes % 16.6 % (4.7-12.5); Neutrophil % 58.6 % (34.0-71.1); Platelet Count 190 x10^3/uL (182-369); Red Blood Count 3.13 x10^6/uL (3.93-5.22); White Blood Count 5.1 x10^3/uL (3.98-10.04)
[2024-01-13 05:20] LABS: ALBUMIN 2.7 g/dL (3.5-5.0); BILIRUBIN,TOTAL 0.4 mg/dL (0.2-1.3); Calcium 8.3 mg/dL (8.4-10.2); Creatinine 1 1.77 mg/dL (0.52-1.04); EST GLOMERULAR FILTRATION RATE 27.5 ML/MIN; MAGNESIUM 1.9 mg/dL (1.6-2.3); Potassium 4.3 mmol/L (3.5-5.1); Total Protein 5.1 g/dL (6.3-8.2)
[2024-01-13] MEDS ORDERED: Sodium Chloride 0.9% 250 ML 250 ML IV ONE (05:38)
[2024-01-13] MEDS ORDERED: MEDICATION INTERVENTION MC SCH ×2 (07:15)
[2024-01-13] MEDS: Spiriva 18 Mcg/Cap Inhaler IH SCH (07:22)
[2024-01-13] MEDS: Advair Hfa 115/21 Common canister IH SCH (07:22)
[2024-01-13] MEDS ORDERED: PRISTIQ ER PO SCH (10:00)
[2024-01-13] MEDS ORDERED: [UNRECOGNIZED DRUG - OTHER] PO SCH (10:00)
[2024-01-13] MEDS ORDERED: NON-FORMULARY ITEM (Cyanocobalamin (Vitamin B-12) [Vitamin B-12] 1,000 MCG Capsule) PO SCH (10:00)
[2024-01-13] MEDS ORDERED: OMEGA PO SCH (10:00)
[2024-01-13] MEDS ORDERED: MULTIVITAMIN WITH MINERALS PO SCH (10:00)
[2024-01-13] MEDS ORDERED: NON-FORMULARY ITEM (Fluticasone/Umeclidin/Vilanter [Trelegy Ellipta 200-62.5-25] 1 EACH Bl IH SCH (10:00)
[2024-01-13] MEDS: Acidophilus TABLET PO SCH (11:04)
[2024-01-13] MEDS: Zetia 10 MG PO SCH (11:04)
[2024-01-13] MEDS: THERAGRAN MULTIVITAMIN PO SCH (11:05)
[2024-01-13] MEDS: FISH OIL 1,000 MG CAPSULE PO SCH (11:05)
[2024-01-13] MEDS: SYNTHROID 25 MCG PO SCH (11:05)
[2024-01-13] MEDS: Vitamin B-12 500 MCG PO SCH (11:06)
[2024-01-13] MEDS: Vitamin B-6 (Pyridoxine) 100 MG PO SCH (11:06)
[2024-01-13] MEDS: Vitamin C 500 MG PO SCH (11:06)
[2024-01-13] MEDS: ROCEPHIN 1 GM / 100 ML NaCl 1 GM/100 ML IVPB IV SCH (11:06)
[2024-01-13] MEDS: ENOXAPARIN SODIUM SQ SCH (11:19)
--- NOTE | 2024-01-13 12:04 | PCM.NOTE ---
Date and Time: 01/13/24 1155 Subjective Assessment: 01/13/24 is a 88 year old female with PMHX of cataracts, PVD, COPD, hypothyroidism, COPD, OA, CKD, depression, and multiple medication allergies. She presented to the ED on 01/12/24 stating that her dog injured the top of her left foot 3 weeks ago and her right foot 1 week ago with redness, and she developed tenderness and swelling the same day of the injuries. She states that she was recently placed on oral doxycycline without improvement. Additionally, the patient states she fell yesterday in the kitchen injuring her left upper back, left leg and right hand; denies LOC and states she "just falls". Pt admits to falling frequently at home. Family in room this AM explained she is to use a walker but uses a cane and does not do well with this. Will have PT eval pt for home needs vs. rehab. Pt denies abdominal pain, vomiting, diarrhea; admits to nausea for the past 5 days. In the ED, there was concern about bilateral leg cellulitis and also a UTI. The patient developed some erythematous skin streaking after receiving Vancomycin, so this was discontinued. She was started on Zyvox and Rocephin on admission. Skin has no redness or edema today therefore Zyvox stopped. Continued Rocephin for UTI. Venous duplex negative for DVT. CT head negative for any acute concern. Pristiq stopped d/t kidney function, discussed with pt. Radiology results reviewed and no concerning findings observed. Pt reports she was to have an Echo OP yesterday per cardiology and was unable to have therefore would like to have IP. Will order as she does have a heart hx with stent placement and multiple falls. She denies CP, SOB, abd. pain, N/V/D. - Review of Systems Constitutional: Weakness, No Fever, No Chills Eyes: No Symptoms Ears, Nose, & Throat: No Symptoms Respiratory: No Cough, No Short Of Breath Cardiac: No Chest Pain, No Edema, No Syncope Abdominal/Gastrointestinal: No Abdominal Pain, No Nausea, No Vomiting, No Diarrhea Genitourinary Symptoms: No Dysuria Musculoskeletal: Fall, No Back Pain, No Neck Pain Skin: Skin Lesions (Multiple lesion on BL feet and legs from dog per pt.), No Rash Neurological: No Dizziness, No Focal Weakness, No Sensory Changes Psychological: No Symptoms Endocrine: No Symptoms Hematologic/Lymphatic: No Symptoms Immunological/Allergic: No Symptoms Objective Exam General Appearance: no apparent distress, alert, thin Neurologic Exam: alert, oriented x 3, cooperative, normal mood/affect, nml cerebellar function, sensation nml, motor weakness, No motor deficits Skin Exam: normal color, warm, dry, other (Multiple lesions in various stages of healing on BLLE. Pictures in chart reviwed as BLLE currenlty wrapped. Redness and edema improved since admission.) Wound Assessment: Skin/Wound Assessment Wound/Incision Assessment Start: 01/12/24 19:53 Text: Status: Active Freq: Q6H Protocol: Document 01/13/24 05:00 KD (Rec: 01/13/24 07:54 KD [id number]) Wound/Incision Assessment Right Upper Arm Wound Assessment Admission Wound Type Skin Tear Wound Stage Non Pressure Wound Dressing Status Changed Drainage Amount Minimal Drainage Description Serosanguineous General Appearance Draining Length (cm) (cm) 1.3 Width (cm) (cm) 0.3 Wound Bed Greatest Portion Red (Granulation) Surrounding Tissue Dark Red,Purple Primary Dressing Steri Strips Secondary Dressing Absorbant Pad Comment Covered with Gauze Roll Left Anterior Lower Leg Wound Assessment Admission Wound Type scab Wound Stage Non Pressure Wound Drainage Amount None Length (cm) (cm) 0.5 Width (cm) (cm) 0.8 Surrounding Tissue [place] Primary Dressing Absorbant Pad Secondary Dressing Gauze Roll/Wrap Comment 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 Right Anterior Lower Leg Wound Assessment Admission Wound Type Skin Tear Wound Stage Non Pressure Wound Drainage Amount None Length (cm) (cm) 0.5 Width (cm) (cm) 1 Wound Bed Greatest Portion Red (Granulation) Primary Dressing Absorbant Pad Secondary Dressing Gauze Roll/Wrap Bilateral Lower Extremities Wound Assessment Admission Wound Type Multiple Bruises Wound Stage Non Pressure Wound Drainage Amount None General Appearance Open to air,Clean/Dry Comment Mutliple areas of bruising throughout BLE, open to air, dark red to purple in color Right Foot Wound Assessment Admission Wound Type Healing Wound Wound Stage Non Pressure Wound Drainage Amount None General Appearance Well Approximated Length (cm) (cm) 0.8 Width (cm) (cm) 1 Surrounding Tissue [place] Primary Dressing Mepilex Lite Left Foot Wound Assessment Admission Wound Type Healing wound Wound Stage Non Pressure Wound General Appearance Well Approximated Length (cm) (cm) 1 Width (cm) (cm) 1 Surrounding Tissue Bright Red,Edematous Primary Dressing Mepilex Lite Wound Photo Photo Taken Yes Date: 01/12/24 Time: 22:50 Eye Exam: PERRL, EOMI, eyes nml inspection Ears, Nose, Throat Exam: normal ENT inspection, pharynx normal, moist mucous membranes Neck Exam: normal inspection, non-tender, supple, full range of motion Respiratory Exam: normal breath sounds, lungs clear, No respiratory distress Cardiovascular Exam: regular rate/rhythm, normal heart sounds Gastrointestinal/Abdomen Exam: soft, No tenderness, No mass Extremity Exam: normal inspection, normal range of motion Back Exam: normal inspection, normal range of motion, No CVA tenderness, No vertebral tenderness Pelvic Exam: deferred Rectal Exam: deferred Objective Data Vital Signs: Vital Signs - 24 hr Temp Pulse Resp BP BP Pulse Ox 01/13/24 08:00 98.2 F 68 20 138/63 98 01/13/24 07:40 70 16 98 01/13/24 04:00 97.8 F 72 20 115/54 97 01/13/24 01:02 75 18 99 01/13/24 00:00 97.1 F 70 18 139/62 95 01/12/24 19:33 96.6 F 73 18 140/64 92 L 01/12/24 17:01 82 18 113/89 90 L 01/12/24 16:32 80 23 128/59 01/12/24 16:07 76 21 127/64 93 L 01/12/24 16:03 73 19 77 L 01/12/24 15:31 79 22 124/48 93 L 01/12/24 15:00 80 22 130/64 95 01/12/24 14:30 86 25 H 163/71 85 L 01/12/24 14:00 79 22 132/90 88 L 01/12/24 13:58 85 18 148/56 95 01/12/24 13:30 79 18 159/75 92 L 01/12/24 13:07 84 22 156/56 71 L 01/12/24 13:06 78 L 01/12/24 12:30 143/57 01/12/24 12:01 70 19 152/76 97 Pain Assessment - Last Documented Pain Intensity 0 Intake and Output: Intake & Output 01/10/24 01/11/24 01/12/24 01/13/24 11:59 11:59 11:59 11:59 Intake Total 1280 Output Total 1200 Balance 80 Weight 45.359 kg 48.3 kg Lab Results: Lab Results-Last 24 Hours 01/12/24 01/12/24 01/12/24 Range/Units 11:45 11:45 11:45 WBC 6.5 (3.98-10.04) x10^3/uL RBC 3.66 L (3.93-5.22) x10^6/uL Hgb 11.5 (11.2-15.7) g/dL Hct 35.2 (34.1-44.9) % MCV 96.2 H (79.4-94.8) fL MCH 31.4 (25.6-32.2) pg MCHC 32.7 (32.2-35.5) g/dL RDW 13.7 (11.7-14.4) % Plt Count 218 (182-369) x10^3/uL MPV 11.8 (9.4-12.3) fL Gran % 71.0 (34.0-71.1) % Immature Gran % (Auto) 0.2 (0.001-0.429) % Nucleat RBC Rel Count 0.0 (0.00-0.2) % Eos # (Auto) 0.16 (0.04-0.36) x10^3/uL Immature Gran # (Auto) 0.01 (0.001-0.031) x10^3u/L Absolute Lymphs (auto) 0.94 L (1.18-3.74) x10^3/uL Absolute Monos (auto) 0.71 (0.24-0.86) x10^3/uL Absolute Nucleated RBC 0.00 (0.00-0.012) x10^3u/L Lymphocytes % 14.5 L (19.3-51.7) % Monocytes % 11.0 (4.7-12.5) % Eosinophils % 2.5 (0.7-5.8) % Basophils % 0.8 (0.1-1.2) % Absolute Granulocytes 4.60 (1.56-6.13) x10^3/uL Basophils # 0.05 (0.01-0.08) x10^3/uL Sodium 137 (135-145) mmol/L Potassium 4.7 (3.5-5.1) mmol/L Chloride 103 (98-107) mmol/L Carbon Dioxide 24 (22-30) mmol/L Anion Gap 14.7 (5-15) MEQ/L BUN 57 H (7-17) mg/dL Creatinine 2.33 H (0.52-1.04) mg/dL Estimated GFR 19.8 ML/MIN Glucose 98 (74-106) mg/dL Calcium 9.5 (8.4-10.2) mg/dL Magnesium (1.6-2.3) mg/dL Total Bilirubin 0.40 (0.2-1.3) mg/dL AST 57 H (14-36) U/L ALT 39 H (0-35) U/L Alkaline Phosphatase 56 (38-126) U/L Troponin I < 0.012 (0.000-0.033) ng/mL Serum Total Protein 6.5 (6.3-8.2) g/dL Albumin 3.9 (3.5-5.0) g/dL Prealbumin (17.6-36.0) mg/dL Amylase 143 H (30-110) U/L Lipase 248 (23-300) U/L Urine Color Yellow (Yellow) Urine Appearance Clear (Clear) Urine pH 6.5 (4.6-8.0) Ur Specific [place] 1.010 (1.005-1.030) Urine Protein Negative (Negative) Urine Glucose (UA) Negative (Negative) mg/dL Urine Ketones Negative (Negative) Urine Blood Negative (Negative) Urine Nitrite Positive A (Negative) Urine Bilirubin Negative (Negative) Urine Urobilinogen 0.2 (0.2) mg/dL Ur Leukocyte Esterase Large A (Negative) Urine Microscopic RBC 0-2 (0-5) /HPF Urine Microscopic WBC 51-100 A (0-5) /HPF Ur Epithelial Cells Moderate A (None Seen) /HPF Urine Bacteria Many A (None Seen) /HPF Urine Culture Reflexed YES (NO) 01/12/24 01/12/24 01/12/24 Range/Units 15:59 19:40 19:40 WBC (3.98-10.04) x10^3/uL RBC (3.93-5.22) x10^6/uL Hgb (11.2-15.7) g/dL Hct (34.1-44.9) % MCV (79.4-94.8) fL MCH (25.6-32.2) pg MCHC (32.2-35.5) g/dL RDW (11.7-14.4) % Plt Count (182-369) x10^3/uL MPV (9.4-12.3) fL Gran % (34.0-71.1) % Immature Gran % (Auto) (0.001-0.429) % Nucleat RBC Rel Count (0.00-0.2) % Eos # (Auto) (0.04-0.36) x10^3/uL Immature Gran # (Auto) (0.001-0.031) x10^3u/L Absolute Lymphs (auto) (1.18-3.74) x10^3/uL Absolute Monos (auto) (0.24-0.86) x10^3/uL Absolute Nucleated RBC (0.00-0.012) x10^3u/L Lymphocytes % (19.3-51.7) % Monocytes % (4.7-12.5) % Eosinophils % (0.7-5.8) % Basophils % (0.1-1.2) % Absolute Granulocytes (1.56-6.13) x10^3/uL Basophils # (0.01-0.08) x10^3/uL Sodium (135-145) mmol/L Potassium (3.5-5.1) mmol/L Chloride (98-107) mmol/L Carbon Dioxide (22-30) mmol/L Anion Gap (5-15) MEQ/L BUN (7-17) mg/dL Creatinine (0.52-1.04) mg/dL Estimated GFR ML/MIN Glucose (74-106) mg/dL Calcium (8.4-10.2) mg/dL Magnesium (1.6-2.3) mg/dL Total Bilirubin (0.2-1.3) mg/dL AST (14-36) U/L ALT (0-35) U/L Alkaline Phosphatase (38-126) U/L Troponin I < 0.012 < 0.012 (0.000-0.033) ng/mL Serum Total Protein (6.3-8.2) g/dL Albumin (3.5-5.0) g/dL Prealbumin 20.41 (17.6-36.0) mg/dL Amylase (30-110) U/L Lipase (23-300) U/L Urine Color (Yellow) Urine Appearance (Clear) Urine pH (4.6-8.0) Ur Specific [place] (1.005-1.030) Urine Protein (Negative) Urine Glucose (UA) (Negative) mg/dL Urine Ketones (Negative) Urine Blood (Negative) Urine Nitrite (Negative) Urine Bilirubin (Negative) Urine Urobilinogen (0.2) mg/dL Ur Leukocyte Esterase (Negative) Urine Microscopic RBC (0-5) /HPF Urine Microscopic WBC (0-5) /HPF Ur Epithelial Cells (None Seen) /HPF Urine Bacteria (None Seen) /HPF Urine Culture Reflexed (NO) 01/13/24 01/13/24 Range/Units 04:22 04:22 WBC 5.1 (3.98-10.04) x10^3/uL RBC 3.13 L (3.93-5.22) x10^6/uL Hgb 10.0 L (11.2-15.7) g/dL Hct 30.5 L (34.1-44.9) % MCV 97.4 H (79.4-94.8) fL MCH 31.9 (25.6-32.2) pg MCHC 32.8 (32.2-35.5) g/dL RDW 14.0 (11.7-14.4) % Plt Count 190 (182-369) x10^3/uL MPV 11.6 (9.4-12.3) fL Gran % 58.6 (34.0-71.1) % Immature Gran % (Auto) 0.2 (0.001-0.429) % Nucleat RBC Rel Count 0.0 (0.00-0.2) % Eos # (Auto) 0.21 (0.04-0.36) x10^3/uL Immature Gran # (Auto) 0.01 (0.001-0.031) x10^3u/L Absolute Lymphs (auto) 0.99 L (1.18-3.74) x10^3/uL Absolute Monos (auto) 0.84 (0.24-0.86) x10^3/uL Absolute Nucleated RBC 0.00 (0.00-0.012) x10^3u/L Lymphocytes % 19.6 (19.3-51.7) % Monocytes % 16.6 H (4.7-12.5) % Eosinophils % 4.2 (0.7-5.8) % Basophils % 0.8 (0.1-1.2) % Absolute Granulocytes 2.96 (1.56-6.13) x10^3/uL Basophils # 0.04 (0.01-0.08) x10^3/uL Sodium 138 (135-145) mmol/L Potassium 4.3 (3.5-5.1) mmol/L Chloride 111 H (98-107) mmol/L Carbon Dioxide 23 (22-30) mmol/L Anion Gap 9.0 (5-15) MEQ/L BUN 35 H (7-17) mg/dL Creatinine 1.77 H (0.52-1.04) mg/dL Estimated GFR 27.5 ML/MIN Glucose 99 (74-106) mg/dL Calcium 8.3 L (8.4-10.2) mg/dL Magnesium 1.9 (1.6-2.3) mg/dL Total Bilirubin 0.40 (0.2-1.3) mg/dL AST 40 H (14-36) U/L ALT 30 (0-35) U/L Alkaline Phosphatase 50 (38-126) U/L Troponin I (0.000-0.033) ng/mL Serum Total Protein 5.1 L (6.3-8.2) g/dL Albumin 2.7 L (3.5-5.0) g/dL Prealbumin (17.6-36.0) mg/dL Amylase (30-110) U/L Lipase (23-300) U/L Urine Color (Yellow) Urine Appearance (Clear) Urine pH (4.6-8.0) Ur Specific [place] (1.005-1.030) Urine Protein (Negative) Urine Glucose (UA) (Negative) mg/dL Urine Ketones (Negative) Urine Blood (Negative) Urine Nitrite (Negative) Urine Bilirubin (Negative) Urine Urobilinogen (0.2) mg/dL Ur Leukocyte Esterase (Negative) Urine Microscopic RBC (0-5) /HPF Urine Microscopic WBC (0-5) /HPF Ur Epithelial Cells (None Seen) /HPF Urine Bacteria (None Seen) /HPF Urine Culture Reflexed (NO) Radiology Exams: Radiology Procedures Category Date Time Status ABDOMEN AND PELVIS W/0 CONTRAS [CT] Stat Exams 01/12/24 11:46 Completed CHEST WITHOUT CONTRAST [CT] Stat Exams 01/12/24 11:47 Completed ECHO W/2D AND DOPPLER [US] Routine Exams 01/13/24 10:43 Ordered FOOT (MINIMUM 3 VIEWS) Stat Exams 01/12/24 11:48 Completed FOOT (MINIMUM 3 VIEWS) Stat Exams 01/12/24 11:50 Completed HEAD WITHOUT CONTRAST [CT] Stat Exams 01/12/24 11:47 Completed LOWER LEG Stat Exams 01/12/24 11:48 Completed LOWER LEG Stat Exams 01/12/24 11:50 Completed VENOUS BILATERAL EXTREMITY [US] Stat Exams 01/12/24 11:51 Completed Assessment/Plan (1) UTI (urinary tract infection) Current Visit: Yes Status: Acute Assessment & Plan: - Rocephin IV - Pt admits to feeling foggy at home yesterday and now improved today. CT head negative for acute concerns. Likely related to UTI. - UC gram negative sensitivity pending Code(s): N39.0 - URINARY TRACT INFECTION, SITE NOT SPECIFIED (2) Acute on chronic renal failure Current Visit: Yes Status: Acute Assessment & Plan: - creat 1.77, baseline 2.04- better than normal - NS @ 125- stopped - Hold torsemide, ACEI/HCTZ - Follow renal function. - Patient follows Dr. Velez. 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 - Venous duplex of BLLE negative for DVT Code(s): L03.115 - CELLULITIS OF RIGHT LOWER LIMB; L03.116 - CELLULITIS OF LEFT LOWER LIMB (4) Skin lesion of lower extremity Current Visit: Yes Status: Acute Assessment & Plan: - From dog per pt. - + scabs seen on BL lower legs and feet in various stages of healing - see pics on chart by nursing Code(s): L98.9 - DISORDER OF THE SKIN AND SUBCUTANEOUS TISSUE, UNSPECIFIED (5) Multiple falls Current Visit: Yes Status: Acute Assessment & Plan: - PT eval - Per family pt to use walker but has been using cane and falling at home - consider rehab placement- will be short term - Echo - All radiology results reviewed- no acute concerns Code(s): R29.6 - REPEATED FALLS (6) HTN (hypertension) Current Visit: Yes Status: Acute Assessment & Plan: - BP stable with meds held for MORAIMA - Continue Coreg, amlodipine - IV fluids stopped Code(s): I10 - ESSENTIAL (PRIMARY) HYPERTENSION (7) Hypothyroidism Current Visit: Yes Status: Acute Assessment & Plan: -Continue synthroid - TSH in AM Code(s): E03.9 - HYPOTHYROIDISM, UNSPECIFIED (8) Depression Current Visit: Yes Status: Chronic Assessment & Plan: - Pristiq held d/t kidney function - Discussed with pt that the dose of Pristiq she is on is too high to take daily due to her CKD. This needs to be discussed with PCP OP. Consider changing to every other day if going to stay on this medication. Code(s): F32.A - DEPRESSION, UNSPECIFIED (9) Nausea Current Visit: Yes Status: Resolved Assessment & Plan: - resolved - Zofran IV PRN Code(s): R11.0 - NAUSEA (10) COPD (chronic obstructive pulmonary disease) Current Visit: Yes Status: Chronic Assessment & Plan: - [facility] - RA 98% during day when awake. VTE: Lovenox Next of KIN: Marsha Zhang [phone] D/c plan: tomorrow Code status: Full
[2024-01-13] MEDS: Xalatan OP SCH (23:01)
[2024-01-14 05:16] LABS: Hematocrit 31.3 % (34.1-44.9); Hemoglobin 10.1 g/dL (11.2-15.7); Mean Cell Volume 98.4 fL (79.4-94.8); Mean Corpuscular Hemoglobin 31.8 pg (25.6-32.2); Mean Corpuscular Hgb Concent. 32.3 g/dL (32.2-35.5); Mean Platelet Volume 11.2 fL (9.4-12.3); Platelet Count 186 x10^3/uL (182-369); Red Blood Count 3.18 x10^6/uL (3.93-5.22); Red Cell Distribution Width 13.9 % (11.7-14.4); White Blood Count 5.4 x10^3/uL (3.98-10.04)
[2024-01-14 05:56] LABS: ALBUMIN 2.6 g/dL (3.5-5.0); ANION GAP 8.4 MEQ/L (5-15); BILIRUBIN,TOTAL 0.3 mg/dL (0.2-1.3); Calcium 8.4 mg/dL (8.4-10.2); Creatinine 1 1.36 mg/dL (0.52-1.04); EST GLOMERULAR FILTRATION RATE 37.7 ML/MIN; Potassium 4.2 mmol/L (3.5-5.1); Total Protein 4.8 g/dL (6.3-8.2)
[2024-01-14] MEDS: ECOTRIN 81 MG PO SCH (09:29)
[2024-01-14] MEDS: Zocor 10MG PO SCH (09:30)
--- NOTE | 2024-01-14 10:22 | PCM.DS ---
Discharge Summary Date of Admission: 01/12/24 19:30 Date of Discharge: 01/14/24 Admitting Physician: YVETTE JOSEPH MD Primary Care Provider: MASSIEL RODRÍGUEZ MD Allergies Allergies amoxicillin Allergy (Unknown, Verified 03/27/23 21:48) Nausea clindamycin Allergy (Unknown, Verified 03/27/23 21:48) nitrofurantoin Allergy (Unknown, Verified 03/27/23 21:48) Nausea Sulfa (Sulfonamide Antibiotics) Allergy (Verified 01/12/24 11:17) vancomycin Allergy (Verified 01/12/24 16:51) IV contrast dye Allergy (Unknown, Uncoded 03/27/23 21:48) Hospital Summary - Hospital Course Hospital Course: 01/13/24 is a 88 year old female with PMHX of cataracts, PVD, COPD, hypothyroidism, COPD, OA, CKD, depression, and multiple medication allergies. Tashia wayne presented to the ED on 01/12/24 stating that her dog injured the top of her left foot 3 weeks ago and her right foot 1 week ago with redness, and she developed tenderness and swelling the same day of the injuries. She states that she was recently placed on oral doxycycline without improvement. Additionally, the patient states she fell yesterday in the kitchen injuring her left upper back, left leg and right hand; denies LOC and states she "just falls". Pt admits to falling frequently at home. Family in room this AM explained she is to use a walker but uses a cane and does not do well with this. Will have PT eval pt for home needs vs. rehab. Pt denies abdominal pain, vomiting, diarrhea; admits to nausea for the past 5 days. In the ED, there was concern about bilateral leg cellulitis and also a UTI. The patient developed some erythematous skin streaking after receiving Vancomycin, so this was discontinued. She was started on Zyvox and Rocephin on admission. Skin has no redness or edema today therefore Zyvox stopped. Continued Rocephin for UTI. Venous duplex negative for DVT. CT head negative for any acute concern. Pristiq stopped d/t kidney function, discussed with pt. Radiology results reviewed and no concerning findings observed. Pt reports she was to have an Echo OP yesterday per cardiology and was unable to have therefore would like to have IP. Will order as she does have a heart hx with stent placement and multiple falls. She denies CP, SOB, abd. pain, N/V/D. 01/14/24 Pt sitting up in bed. She is wanting to go to rehab to get stronger. She admits she would benefit from this. Case management working on placement at [facility]. UC + e-coli will continue OP antibiotics. She is c/o sore in the bottom of her mouth from a dental appliance. Chlorhexidine mouthwash started. She has bandages covering skin lesions from her dog. No redness or erythema noted. She denies CP, SOB, abd. pain, N/V/D. - Vitals & Intake/Output Vital Signs: Vital Signs Temperature 97.7 F 01/14/24 07:11 Pulse Rate 74 01/14/24 07:11 Respiratory Rate 16 01/14/24 07:11 Blood Pressure 147/65 01/14/24 07:11 O2 Sat by Pulse Oximetry 99 01/14/24 07:11 Intake & Output: Intake & Output 01/11/24 01/12/24 01/13/24 01/14/24 11:59 11:59 11:59 11:59 Intake Total 1280 1786 Output Total 1200 1350 Balance 80 436 Weight 45.359 kg 48.3 kg - Lab Result Diagrams: 01/14/24 05:03 01/14/24 05:03 Lab Results-Last 24 Hrs: Lab Results-Last 24 Hours 01/14/24 01/14/24 01/14/24 Range/Units 05:03 05:03 05:03 WBC 5.4 (3.98-10.04) x10^3/uL RBC 3.18 L (3.93-5.22) x10^6/uL Hgb 10.1 L (11.2-15.7) g/dL Hct 31.3 L (34.1-44.9) % MCV 98.4 H (79.4-94.8) fL MCH 31.8 (25.6-32.2) pg MCHC 32.3 (32.2-35.5) g/dL RDW 13.9 (11.7-14.4) % Plt Count 186 (182-369) x10^3/uL MPV 11.2 (9.4-12.3) fL Sodium 141 (135-145) mmol/L Potassium 4.2 (3.5-5.1) mmol/L Chloride 113 H (98-107) mmol/L Carbon Dioxide 24 (22-30) mmol/L Anion Gap 8.4 (5-15) MEQ/L BUN 26 H (7-17) mg/dL Creatinine 1.36 H (0.52-1.04) mg/dL Estimated GFR 37.7 ML/MIN Glucose 97 (74-106) mg/dL Calcium 8.4 (8.4-10.2) mg/dL Total Bilirubin 0.30 (0.2-1.3) mg/dL AST 35 (14-36) U/L ALT 27 (0-35) U/L Alkaline Phosphatase 50 (38-126) U/L Serum Total Protein 4.8 L (6.3-8.2) g/dL Albumin 2.6 L (3.5-5.0) g/dL TSH 3rd Generation 1.430 (0.470-4.680) mIU/L Micro Results-Entire Visit: Microbiology 01/12/24 11:45 Urine Culture - Final Clean Catch Midstream Escherichia Coli 01/12/24 12:11 Blood Culture - Preliminary Blood 01/12/24 12:00 Blood Culture - Preliminary Blood - Radiology Exams Ordered Rad Exams-Entire Visit: Radiology Procedures Category Date Time Status ABDOMEN AND PELVIS W/0 CONTRAS [CT] Stat Exams 01/12/24 11:46 Completed CHEST WITHOUT CONTRAST [CT] Stat Exams 01/12/24 11:47 Completed ECHO W/2D AND DOPPLER [US] Routine Exams 01/13/24 10:43 Taken FOOT (MINIMUM 3 VIEWS) Stat Exams 01/12/24 11:48 Completed FOOT (MINIMUM 3 VIEWS) Stat Exams 01/12/24 11:50 Completed HEAD WITHOUT CONTRAST [CT] Stat Exams 01/12/24 11:47 Completed LOWER LEG Stat Exams 01/12/24 11:48 Completed LOWER LEG Stat Exams 01/12/24 11:50 Completed VENOUS BILATERAL EXTREMITY [US] Stat Exams 01/12/24 11:51 Completed - Procedures and Test Procedures and Tests throughout Hospitalization: Therapy Orders & Screens 01/12/24 20:05 PT Eval & Treat ( Order) ONCE Reason for Eval:: leg cellulitis. Assess ambulatory assistance requirement. Recent fall. Diagnosis: Cellulitis of legs & feet; UTI; Nausea; Fall; Contusion of upper back OT Eval and Treat (MD Order) ONCE Comment: Physician Instructions: Reason For Exam: Evaluate: Yes Treat: Yes Diagnosis: Cellulitis of legs & feet; UTI; Nausea; Fall; Contusion of upper back 01/12/24 21:07 OT Screen per Nursing Assess ONCE Comment: Protocol Order Physician Instructions: Greater than 3 points order OT Admission Screening Reason For Exam: Triggered on Admission Diagnosis: Cellulitis of legs & feet; UTI; Nausea; Fall; Contusion of upper back Open Wound/Cellutlitis/Pressure Ulcers: Yes Acute Fx/ORIF/Change in wt bearing status: No Severe MUSCULOSKELETAL pain: No ADL Dysfunction: No Acute CVA w/Hemiparesis/Hemiplegia: No Decreased Functional Mobility/Strength: Yes Sprain/Strain: No Acute Post-op Mobility Dysfunction: No Total Points: 6 PT Screen per Nursing Assess ONCE Comment: Protocol Order Physician Instructions: Greater than 3 points order PT Admission Screenin Reason For Exam: Triggered on Admission Diagnosis: Cellulitis of legs & feet; UTI; Nausea; Fall; Contusion of upper back Open Wound/Cellutlitis/Pressure Ulcers: Yes Acute Fx/ORIF/Change in wt bearing status: No Severe MUSCULOSKELETAL pain: No ADL Dysfunction: No Acute CVA w/Hemiparesis/Hemiplegia: No Decreased Functional Mobility/Strength: Yes Sprain/Strain: No Acute Post-op Mobility Dysfunction: No Total Points: 6 01/13/24 00:58 Oxygen Nasal Cannula 4 lpm Comment: Diagnosis: Cellulitis of legs & feet; UTI; Nausea; Fall; Contusion of upper back Respiratory Therapy Assessment DAILY Comment: Diagnosis: Cellulitis of legs & feet; UTI; Nausea; Fall; Contusion of upper back 01/13/24 01:00 Respiratory MDI BID Comment: Diagnosis: Cellulitis of legs & feet; UTI; Nausea; Fall; Contusion of upper back Discharge Exam General Appearance: no apparent distress, alert Neurologic Exam: alert, oriented x 3, cooperative, normal mood/affect, nml cerebellar function, sensation nml, No motor deficits Eye Exam: PERRL, EOMI, eyes nml inspection Ears, Nose, Throat Exam: normal ENT inspection, pharynx normal, moist mucous membranes Neck Exam: normal inspection, non-tender, supple, full range of motion Respiratory Exam: normal breath sounds, lungs clear, No respiratory distress Cardiovascular Exam: regular rate/rhythm, normal heart sounds Gastrointestinal/Abdomen Exam: soft, No tenderness, No mass Pelvic Exam: deferred Rectal Exam: deferred Back Exam: normal inspection, normal range of motion, No CVA tenderness, No vertebral tenderness Extremity Exam: normal inspection, normal range of motion Skin Exam: normal color, warm, dry, rash, other (Mutiple lesions of BLLE in various stages of healing with scabs.) Wound Assessment: Skin/Wound Assessment Wound/Incision Assessment Start: 01/12/24 19:53 Text: Status: Active Freq: Q6H Protocol: Document 01/14/24 05:00 KD (Rec: 01/14/24 05:23 KD [id number]) Wound/Incision Assessment Right Upper Arm Wound Assessment Shift Assessment Wound Type Skin Tear Wound Stage Non Pressure Wound Dressing Status Dry & Intact Drainage Amount Minimal Drainage Description Serosanguineous General Appearance Draining Length (cm) (cm) 1.3 Width (cm) (cm) 0.3 Wound Bed Greatest Portion Red (Granulation) Surrounding Tissue Dark Red,Purple Primary Dressing Steri Strips Secondary Dressing Absorbant Pad Comment Covered with Gauze Roll Left Anterior Lower Leg Wound Assessment Shift Assessment Wound Type scab Wound Stage Non Pressure Wound Drainage Amount None Length (cm) (cm) 0.5 Width (cm) (cm) 0.8 Surrounding Tissue Ailey Primary Dressing Absorbant Pad Secondary Dressing Gauze Roll/Wrap Comment Pt stated sanitarian inspector is watching this spot. Right Anterior Lower Leg Wound Assessment Shift Assessment Wound Type Skin Tear Wound Stage Non Pressure Wound Drainage Amount None Length (cm) (cm) 0.5 Width (cm) (cm) 1 Wound Bed Greatest Portion Red (Granulation) Primary Dressing Absorbant Pad Secondary Dressing Gauze Roll/Wrap Bilateral Lower Extremities Wound Assessment Shift Assessment Wound Type Multiple Bruises Wound Stage Non Pressure Wound Drainage Amount None General Appearance Open to air,Clean/Dry Comment Mutliple areas of bruising throughout BLE, open to air, dark red to purple in color Right Foot Wound Assessment Shift Assessment Wound Type Healing Wound Wound Stage Non Pressure Wound Drainage Amount None General Appearance Well Approximated Length (cm) (cm) 0.8 Width (cm) (cm) 1 Surrounding Tissue Ailey Primary Dressing Mepilex Lite Left Foot Wound Assessment Shift Assessment Wound Type Healing wound Wound Stage Non Pressure Wound Dressing Status Drainage circled Drainage Amount Minimal Drainage Description Serosanguineous General Appearance Well Approximated Length (cm) (cm) 1 Width (cm) (cm) 1 Surrounding Tissue Bright Red,Edematous Primary Dressing Mepilex Lite Wound Photo Photo Taken Yes Date: 01/12/24 Time: 22:50 Comment: New photo of L foot taken 01-12 @ [id number]. Final Diagnosis/Problem List - Final Discharge Diagnosis/Problem (1) UTI (urinary tract infection) Current Visit: Yes Status: Acute Code(s): N39.0 - URINARY TRACT INFECTION, SITE NOT SPECIFIED (2) Acute on chronic renal failure Current Visit: Yes Status: Acute Code(s): N17.9 - ACUTE KIDNEY FAILURE, UNSPECIFIED; N18.9 - CHRONIC KIDNEY DISEASE, UNSPECIFIED (3) Cellulitis of both lower extremities Current Visit: Yes Status: Acute Code(s): L03.115 - CELLULITIS OF RIGHT LOWER LIMB; L03.116 - CELLULITIS OF LEFT LOWER LIMB (4) Skin lesion of lower extremity Current Visit: Yes Status: Acute Code(s): L98.9 - DISORDER OF THE SKIN AND SUBCUTANEOUS TISSUE, UNSPECIFIED (5) Multiple falls Current Visit: Yes Status: Acute Code(s): R29.6 - REPEATED FALLS (6) HTN (hypertension) Current Visit: Yes Status: Acute Code(s): I10 - ESSENTIAL (PRIMARY) HYPERTENSION (7) Hypothyroidism Current Visit: Yes Status: Acute Code(s): E03.9 - HYPOTHYROIDISM, UNSPECIFIED (8) Depression Current Visit: Yes Status: Chronic Code(s): F32.A - DEPRESSION, UNSPECIFIED (9) Nausea Current Visit: Yes Status: Resolved Code(s): R11.0 - NAUSEA (10) COPD (chronic obstructive pulmonary disease) Current Visit: Yes Status: Chronic Assessment & Plan: (1) UTI (urinary tract infection) Current Visit: Yes Status: Acute Assessment & Plan: - Rocephin IV - Pt admits to feeling foggy at home yesterday and now improved today. CT head negative for acute concerns. Likely related to UTI. - UC gram negative sensitivity pending 01/13 - + Ecoli UC- continue ceftriaxone Code(s): N39.0 - URINARY TRACT INFECTION, SITE NOT SPECIFIED (2) Acute on chronic renal failure Current Visit: Yes Status: Acute Assessment & Plan: - creat 1.77, baseline 2.04- better than normal - NS @ 125- stopped - Hold torsemide, ACEI/HCTZ - Follow renal function. - Patient follows Dr. Velez. 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 - Venous duplex of BLLE negative for DVT Code(s): L03.115 - CELLULITIS OF RIGHT LOWER LIMB; L03.116 - CELLULITIS OF LEFT LOWER LIMB (4) Skin lesion of lower extremity Current Visit: Yes Status: Acute Assessment & Plan: - From dog per pt. - + scabs seen on BL lower legs and feet in various stages of healing - see pics on chart by nursing - Continue wound care PRN Code(s): L98.9 - DISORDER OF THE SKIN AND SUBCUTANEOUS TISSUE, UNSPECIFIED (5) Multiple falls Current Visit: Yes Status: Acute Assessment & Plan: - PT eval - Per family pt to use walker but has been using cane and falling at home - consider rehab placement- will be short term - Echo - All radiology results reviewed- no acute concerns 01/13 - plan is to tc to [facility] for rehab today Code(s): R29.6 - REPEATED FALLS (6) HTN (hypertension) Current Visit: Yes Status: Acute Assessment & Plan: - BP stable with meds held for MORAIMA - Continue Coreg, amlodipine - IV fluids stopped Code(s): I10 - ESSENTIAL (PRIMARY) HYPERTENSION (7) Hypothyroidism Current Visit: Yes Status: Acute Assessment & Plan: -Continue synthroid - TSH 1.430- ok Code(s): E03.9 - HYPOTHYROIDISM, UNSPECIFIED (8) Depression Current Visit: Yes Status: Chronic Assessment & Plan: - Pristiq held d/t kidney function - Discussed with pt that the dose of Pristiq she is on is too high to take daily due to her CKD. This needs to be discussed with PCP OP. Consider changing to every other day if going to stay on this medication. Code(s): F32.A - DEPRESSION, UNSPECIFIED (9) Nausea Current Visit: Yes Status: Resolved Assessment & Plan: - resolved - Zofran IV PRN Code(s): R11.0 - NAUSEA (10) COPD (chronic obstructive pulmonary disease) Current Visit: Yes Status: Chronic Assessment & Plan: - baseline 4LNC at [facility] - RA 98% during day when awake. - Discharge Discharge Date: 01/14/24 (rehab) Disposition: DC TO OTHER HOSP Condition: Stable Prescriptions: New Chlorhexidine Gluconate 15 ml MM BID 10 Days #473 ml Cefuroxime Axetil 500 mg [Ceftin 500 mg] 500 mg PO BID 7 Days #14 tablet Continue Pyridoxine HCl 100 mg [Vitamin B-6 (Pyridoxine) 100 MG] 100 mg PO DAILY Leander 3 Polyunsaturated Fatty 1,200 mg PO DAILY Nitroglycerin 0.4 mg Tablet [Nitrostat 0.4 MG Tablet] 0.4 mg SL Q5MIN PRN MR X 3 PRN PRN Reason: Chest Pain Multivitamin with Minerals [Myvitalife] 1 each PO DAILY Tumeric 1,000 mg PO DAILY Levothyroxine Sodium 25 Mcg [Synthroid 25 Mcg] 25 mcg PO DAILY Latanoprost [Xalatan] 1 drop OP EVENING MEAL Lactobacillus Acidophilus [Acidophilus Lactobacilli] 1 each PO DAILY Fluticasone/Umeclidin/Vilanter [Trelegy Ellipta 200-62.5-25] 1 each IH DAILY Ezetimibe 10 mg [Zetia 10 MG] 10 mg PO DAILY Cyanocobalamin (Vitamin B-12) [Vitamin B-12] 1,000 mcg PO DAILY Cholecalciferol (Vitamin D3) [Weekly-D] 1,250 mcg PO WEEKLY Carvedilol 3.125 mg [Coreg 3.125 MG] 3.125 mg PO BID Biotin/Lutein [Biotin Plus 5,000 Mcg Tablet] 1 each PO 3XW Atorvastatin Calcium [Lipitor] 5 mg PO 3XW Ascorbic Acid 500 mg [Vitamin C 500 MG] 500 mg PO DAILY Albuterol Sulfate [Proair Digihaler] 2 puffs IH Q6H PRN PRN PRN Reason: Shortness Of Breath/Wheezing Torsemide 10 mg PO DAILY Lisinopril/Hydrochlorothiazide [Lisinopril-Hctz 20-25 mg Tab] 1 tablet PO DAILY Amlodipine Besylate 2.5 mg PO HS Aspirin EC 81 mg [Ecotrin 81 mg] 1 tablet PO 3XW Changed Desvenlafaxine Succinate [Pristiq] 25 mg PO CLARIFY #0 Desvenlafaxine Succinate [Pristiq] 50 mg PO CLARIFY #0 Additional Instructions: Pristiq dose changed to every other day due to kidney function. Please discuss this with PCP as dose may need to be reduced outpatient if needed daily. Follow up with: MASSIEL RODRÍGUEZ MD [Primary Care Provider] - 01/19/24 1:45 pm
[2024-01-14] MEDS ORDERED: CHLORHEXIDINE GLUCONATE MM SCH (11:00)
[2024-01-14] MEDS: PERIDEX PO SCH (11:30)
[2024-01-14] MEDS ORDERED: hydroDIURIL 25 MG ONE (19:00)
[2024-01-14] MEDS ORDERED: Zestril 20 MG ONE (19:01)
[2024-01-14] MEDS: Zestril 20 MG*** 20 MG, hydroDIURIL 25 MG*** 25 MG PO SCH (19:01)
[2024-01-15 05:53] LABS: Hematocrit 35.2 % (34.1-44.9); Hemoglobin 11.2 g/dL (11.2-15.7); Mean Cell Volume 97.5 fL (79.4-94.8); Mean Corpuscular Hgb Concent. 31.8 g/dL (32.2-35.5); Mean Platelet Volume 11.1 fL (9.4-12.3); Platelet Count 238 x10^3/uL (182-369); Red Blood Count 3.61 x10^6/uL (3.93-5.22); Red Cell Distribution Width 13.9 % (11.7-14.4); White Blood Count 6.5 x10^3/uL (3.98-10.04)
[2024-01-15 06:09] LABS: ALBUMIN 3.5 g/dL (3.5-5.0); ANION GAP 8.5 MEQ/L (5-15); BILIRUBIN,TOTAL 0.4 mg/dL (0.2-1.3); Calcium 9.4 mg/dL (8.4-10.2); Creatinine 1 1.29 mg/dL (0.52-1.04); EST GLOMERULAR FILTRATION RATE 40.2 ML/MIN; Potassium 4.2 mmol/L (3.5-5.1); Total Protein 6.2 g/dL (6.3-8.2)
--- NOTE | 2024-01-15 09:59 | PCM.DS ---
Discharge Summary Date of Admission: 01/12/24 19:30 Date of Discharge: 01/14/24 Admitting Physician: YVETTE JOSEPH MD Primary Care Provider: MASSIEL RODRÍGUEZ MD Allergies Allergies amoxicillin Allergy (Unknown, Verified 03/27/23 21:48) Nausea clindamycin Allergy (Unknown, Verified 03/27/23 21:48) nitrofurantoin Allergy (Unknown, Verified 03/27/23 21:48) Nausea Sulfa (Sulfonamide Antibiotics) Allergy (Verified 01/12/24 11:17) vancomycin Allergy (Verified 01/12/24 16:51) IV contrast dye Allergy (Unknown, Uncoded 03/27/23 21:48) Hospital Summary - Hospital Course Hospital Course: 01/13/24 is a 88 year old female with PMHX of cataracts, PVD, COPD, hypothyroidism, COPD, OA, CKD, depression, and multiple medication allergies. S he presented to the ED on 01/12/24 stating that her dog injured the top of her left foot 3 weeks ago and her right foot 1 week ago with redness, and she developed tenderness and swelling the same day of the injuries. She states that she was recently placed on oral doxycycline without improvement. Additionally, the patient states she fell yesterday in the kitchen injuring her left upper back, left leg and right hand; denies LOC and states she "just falls". Pt admits to falling frequently at home. Family in room this AM explained she is to use a walker but uses a cane and does not do well with this. Will have PT eval pt for home needs vs. rehab. Pt denies abdominal pain, vomiting, diarrhea; admits to nausea for the past 5 days. In the ED, there was concern about bilateral leg cellulitis and also a UTI. The patient developed some erythematous skin streaking after receiving Vancomycin, so this was discontinued. She was started on Zyvox and Rocephin on admission. Skin has no redness or edema today therefore Zyvox stopped. Continued Rocephin for UTI. Venous duplex negative for DVT. CT head negative for any acute concern. Pristiq stopped d/t kidney function, discussed with pt. Radiology results reviewed and no concerning findings observed. Pt reports she was to have an Echo OP yesterday per cardiology and was unable to have therefore would like to have IP. Will order as she does have a heart hx with stent placement and multiple falls. She denies CP, SOB, abd. pain, N/V/D. 01/14/24 Pt sitting up in bed. She is wanting to go to rehab to get stronger. She admits she would benefit from this. Case management working on placement at [facility]. UC + e-coli will continue OP antibiotics. She is c/o sore in the bottom of her mouth from a dental appliance. Chlorhexidine mouthwash started. She has bandages covering skin lesions from her dog. No redness or erythema noted. She denies CP, SOB, abd. pain, N/V/D. 01/15/24 Pt sitting up in bed. She explains she had a restless night and did not sleep well. She explains she wants to leave today with home health care if she is not accepted at rehab facility. Notified case management of this information. BP elevated this AM. Lisinopril with HCTZ restarted. Will recheck after morning meds given. Wounds on BLLE improved. Discussed home wound care and to keep feet covered so dog does not continue to injure her. IV went bad this AM and antibiotics changed to oral. MORAIMA resolved. Pt denies CP, SOB, abd. pain, N/V/D. - Vitals & Intake/Output Vital Signs: Vital Signs Temperature 96.2 F 01/15/24 07:01 Pulse Rate 80 01/15/24 07:24 Respiratory Rate 18 01/15/24 07:24 Blood Pressure 180/92 01/15/24 07:01 O2 Sat by Pulse Oximetry 92 L 01/15/24 07:24 Intake & Output: Intake & Output 01/12/24 01/13/24 01/14/24 01/15/24 11:59 11:59 11:59 11:59 Intake Total 1280 1786 1424 Output Total 1200 2250 2440 Balance 80 -464 -1016 Weight 45.359 kg 48.3 kg - Lab Result Diagrams: 01/15/24 05:20 01/15/24 05:20 Lab Results-Last 24 Hrs: Lab Results-Last 24 Hours 01/15/24 01/15/24 Range/Units 05:20 05:20 WBC 6.5 (3.98-10.04) x10^3/uL RBC 3.61 L (3.93-5.22) x10^6/uL Hgb 11.2 (11.2-15.7) g/dL Hct 35.2 (34.1-44.9) % MCV 97.5 H (79.4-94.8) fL MCH 31.0 (25.6-32.2) pg MCHC 31.8 L (32.2-35.5) g/dL RDW 13.9 (11.7-14.4) % Plt Count 238 (182-369) x10^3/uL MPV 11.1 (9.4-12.3) fL Sodium 141 (135-145) mmol/L Potassium 4.2 (3.5-5.1) mmol/L Chloride 111 H (98-107) mmol/L Carbon Dioxide 26 (22-30) mmol/L Anion Gap 8.5 (5-15) MEQ/L BUN 20 H (7-17) mg/dL Creatinine 1.29 H (0.52-1.04) mg/dL Estimated GFR 40.2 ML/MIN Glucose 104 (74-106) mg/dL Calcium 9.4 (8.4-10.2) mg/dL Total Bilirubin 0.40 (0.2-1.3) mg/dL AST 41 H (14-36) U/L ALT 30 (0-35) U/L Alkaline Phosphatase 57 (38-126) U/L Serum Total Protein 6.2 L (6.3-8.2) g/dL Albumin 3.5 (3.5-5.0) g/dL Micro Results-Entire Visit: Microbiology 01/13/24 23:25 Wound Culture - Preliminary Foot - Left Top NO GROWTH TO DATE 01/12/24 11:45 Urine Culture - Final Clean Catch Midstream Escherichia Coli 01/12/24 12:11 Blood Culture - Preliminary Blood 01/12/24 12:00 Blood Culture - Preliminary Blood - Radiology Exams Ordered Rad Exams-Entire Visit: Radiology Procedures Category Date Time Status ECHO W/2D AND DOPPLER [US] Routine Exams 01/13/24 10:43 Taken - Procedures and Test Procedures and Tests throughout Hospitalization: Therapy Orders & Screens 01/12/24 20:05 PT Eval & Treat ( Order) ONCE Reason for Eval:: leg cellulitis. Assess ambulatory assistance requirement. Recent fall. Diagnosis: Cellulitis of legs & feet; UTI; Nausea; Fall; Contusion of upper back OT Eval and Treat (MD Order) ONCE Comment: Physician Instructions: Reason For Exam: Evaluate: Yes Treat: Yes Diagnosis: Cellulitis of legs & feet; UTI; Nausea; Fall; Contusion of upper back 01/12/24 21:07 OT Screen per Nursing Assess ONCE Comment: Protocol Order Physician Instructions: Greater than 3 points order OT Admission Screening Reason For Exam: Triggered on Admission Diagnosis: Cellulitis of legs & feet; UTI; Nausea; Fall; Contusion of upper back Open Wound/Cellutlitis/Pressure Ulcers: Yes Acute Fx/ORIF/Change in wt bearing status: No Severe MUSCULOSKELETAL pain: No ADL Dysfunction: No Acute CVA w/Hemiparesis/Hemiplegia: No Decreased Functional Mobility/Strength: Yes Sprain/Strain: No Acute Post-op Mobility Dysfunction: No Total Points: 6 PT Screen per Nursing Assess ONCE Comment: Protocol Order Physician Instructions: Greater than 3 points order PT Admission Screenin Reason For Exam: Triggered on Admission Diagnosis: Cellulitis of legs & feet; UTI; Nausea; Fall; Contusion of upper back Open Wound/Cellutlitis/Pressure Ulcers: Yes Acute Fx/ORIF/Change in wt bearing status: No Severe MUSCULOSKELETAL pain: No ADL Dysfunction: No Acute CVA w/Hemiparesis/Hemiplegia: No Decreased Functional Mobility/Strength: Yes Sprain/Strain: No Acute Post-op Mobility Dysfunction: No Total Points: 6 01/13/24 00:58 Oxygen Nasal Cannula 4 lpm Comment: Diagnosis: Cellulitis of legs & feet; UTI; Nausea; Fall; Contusion of upper back Respiratory Therapy Assessment DAILY Comment: Diagnosis: Cellulitis of legs & feet; UTI; Nausea; Fall; Contusion of upper back 01/13/24 01:00 Respiratory MDI BID Comment: Diagnosis: Cellulitis of legs & feet; UTI; Nausea; Fall; Contusion of upper back Discharge Exam General Appearance: no apparent distress, alert Neurologic Exam: alert, oriented x 3, cooperative, normal mood/affect, nml cerebellar function, sensation nml, No motor deficits Eye Exam: PERRL, EOMI, eyes nml inspection Ears, Nose, Throat Exam: normal ENT inspection, pharynx normal, moist mucous membranes Neck Exam: normal inspection, non-tender, supple, full range of motion Respiratory Exam: normal breath sounds, lungs clear, No respiratory distress Cardiovascular Exam: regular rate/rhythm, normal heart sounds Gastrointestinal/Abdomen Exam: soft, No tenderness, No mass Pelvic Exam: deferred Rectal Exam: deferred Back Exam: normal inspection, normal range of motion, No CVA tenderness, No vertebral tenderness Extremity Exam: normal inspection, normal range of motion Skin Exam: normal color, warm, dry, laceration (BL feet lesions, right top of foot scab - appears to be healing, Left top of foot white with yellow drainage- appears to be healing.) Wound Assessment: Skin/Wound Assessment Wound/Incision Assessment Start: 01/12/24 19:53 Text: Status: Active Freq: Q6H Protocol: Document 01/15/24 05:00 AF (Rec: 01/15/24 06:51 AF [id number]) Wound/Incision Assessment Right Upper Arm Wound Assessment Shift Assessment Wound Type Skin Tear Wound Stage Non Pressure Wound Dressing Status Dry & Intact Drainage Amount Minimal Drainage Description Serosanguineous General Appearance Draining Length (cm) (cm) 1.3 Width (cm) (cm) 0.3 Wound Bed Greatest Portion Red (Granulation) Surrounding Tissue Dark Red,Purple Primary Dressing Steri Strips Secondary Dressing Absorbant Pad Comment steri-strips still in place Left Anterior Lower Leg Wound Assessment Shift Assessment Wound Type scab Wound Stage Non Pressure Wound Drainage Amount None Length (cm) (cm) 0.5 Width (cm) (cm) 0.8 Surrounding Tissue Mentor Primary Dressing Absorbant Pad Secondary Dressing Gauze Roll/Wrap Comment Pt stated agricultural services director is watching this spot. Right Anterior Lower Leg Wound Assessment Shift Assessment Wound Type Skin Tear Wound Stage Non Pressure Wound Drainage Amount None Length (cm) (cm) 0.5 Width (cm) (cm) 1 Wound Bed Greatest Portion Red (Granulation) Primary Dressing Absorbant Pad Secondary Dressing Gauze Roll/Wrap Bilateral Lower Extremities Wound Assessment Shift Assessment Wound Type Multiple Bruises Wound Stage Non Pressure Wound Drainage Amount None General Appearance Open to air,Clean/Dry Comment Mutliple areas of bruising throughout BLE, open to air, dark red to purple in color Right Foot Wound Assessment Shift Assessment Wound Type Healing Wound Wound Stage Non Pressure Wound Drainage Amount None General Appearance Well Approximated Length (cm) (cm) 0.8 Width (cm) (cm) 1 Surrounding Tissue Mentor Primary Dressing Mepilex Lite Left Foot Wound Assessment Shift Assessment Wound Type Healing wound Wound Stage Non Pressure Wound Dressing Status Drainage circled Drainage Amount Minimal Drainage Description Serosanguineous General Appearance Well Approximated Length (cm) (cm) 1 Width (cm) (cm) 1 Surrounding Tissue Bright Red,Edematous Primary Dressing Mepilex Lite Wound Photo Photo Taken Yes Date: 01/12/24 Time: 22:50 Comment: New photo of L foot taken 01-12 @ 2516. Final Diagnosis/Problem List - Final Discharge Diagnosis/Problem (1) UTI (urinary tract infection) Current Visit: Yes Status: Acute Code(s): N39.0 - URINARY TRACT INFECTION, SITE NOT SPECIFIED (2) Acute on chronic renal failure Current Visit: Yes Status: Acute Code(s): N17.9 - ACUTE KIDNEY FAILURE, UNSPECIFIED; N18.9 - CHRONIC KIDNEY DISEASE, UNSPECIFIED (3) Cellulitis of both lower extremities Current Visit: Yes Status: Acute Code(s): L03.115 - CELLULITIS OF RIGHT LOWER LIMB; L03.116 - CELLULITIS OF LEFT LOWER LIMB (4) Skin lesion of lower extremity Current Visit: Yes Status: Acute Code(s): L98.9 - DISORDER OF THE SKIN AND SUBCUTANEOUS TISSUE, UNSPECIFIED (5) Multiple falls Current Visit: Yes Status: Acute Code(s): R29.6 - REPEATED FALLS (6) HTN (hypertension) Current Visit: Yes Status: Acute Code(s): I10 - ESSENTIAL (PRIMARY) HYPERTENSION (7) Hypothyroidism Current Visit: Yes Status: Acute Code(s): E03.9 - HYPOTHYROIDISM, UNSPECIFIED (8) Depression Current Visit: Yes Status: Chronic Code(s): F32.A - DEPRESSION, UNSPECIFIED (9) Nausea Current Visit: Yes Status: Resolved Code(s): R11.0 - NAUSEA (10) COPD (chronic obstructive pulmonary disease) Current Visit: Yes Status: Chronic Assessment & Plan: (1) UTI (urinary tract infection) Current Visit: Yes Status: Acute Assessment & Plan: - Rocephin IV - Pt admits to feeling foggy at home yesterday and now improved today. CT head negative for acute concerns. Likely related to UTI. - UC gram negative sensitivity pending 01/13 - + Ecoli UC- continue ceftriaxone 01/14 - pt lost IV- Change to oral medication Code(s): N39.0 - URINARY TRACT INFECTION, SITE NOT SPECIFIED (2) Acute on chronic renal failure Current Visit: Yes Status: Acute Assessment & Plan: - creat 1.77, baseline 2.04- better than normal - NS @ 125- stopped - Hold torsemide, ACEI/HCTZ - Follow renal function. - Patient follows Dr. Velez. 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 - Venous duplex of BLLE negative for DVT 01/14 - resolved - Changed to oral IV antibiotics Code(s): L03.115 - CELLULITIS OF RIGHT LOWER LIMB; L03.116 - CELLULITIS OF LEFT LOWER LIMB (4) Skin lesion of lower extremity Current Visit: Yes Status: Acute Assessment & Plan: - From dog per pt. - + scabs seen on BL lower legs and feet in various stages of healing - see pics on chart by nursing - Continue wound care PRN 01/14 - educated to cover BLLE at home to prevent dog from injuring her skin. - appear to be healing Code(s): L98.9 - DISORDER OF THE SKIN AND SUBCUTANEOUS TISSUE, UNSPECIFIED (5) Multiple falls Current Visit: Yes Status: Acute Assessment & Plan: - PT eval - Per family pt to use walker but has been using cane and falling at home - consider rehab placement- will be short term - Echo - All radiology results reviewed- no acute concerns 01/13 - plan is to tc to [facility] for rehab today 01/14 - Pt want to d/c with [facility] if not accepted to rehab today.- case management made aware. Code(s): R29.6 - REPEATED FALLS (6) HTN (hypertension) Current Visit: Yes Status: Acute Assessment & Plan: - BP stable with meds held for MORAIMA - Continue Coreg, amlodipine - IV fluids stopped Code(s): I10 - ESSENTIAL (PRIMARY) HYPERTENSION (7) Hypothyroidism Current Visit: Yes Status: Acute Assessment & Plan: -Continue synthroid - TSH 1.430- ok Code(s): E03.9 - HYPOTHYROIDISM, UNSPECIFIED (8) Depression Current Visit: Yes Status: Chronic Assessment & Plan: - Pristiq held d/t kidney function - Discussed with pt that the dose of Pristiq she is on is too high to take daily due to her CKD. This needs to be discussed with PCP OP. Consider changing to every other day if going to stay on this medication. Code(s): F32.A - DEPRESSION, UNSPECIFIED (9) Nausea Current Visit: Yes Status: Resolved Assessment & Plan: - resolved - Zofran IV PRN Code(s): R11.0 - NAUSEA (10) COPD (chronic obstructive pulmonary disease) Current Visit: Yes Status: Chronic Assessment & Plan: - baseline 4LNC at night - RA 98% during day when awake. - Discharge Discharge Date: 01/15/24 (rehab) Disposition: DC TO OTHER HOSP Condition: Stable Prescriptions: New Chlorhexidine Gluconate 15 ml MM BID 10 Days #473 ml Cefuroxime Axetil 500 mg [Ceftin 500 mg] 500 mg PO BID 7 Days #14 tablet Continue Pyridoxine HCl 100 mg [Vitamin B-6 (Pyridoxine) 100 MG] 100 mg PO DAILY Lindsay 3 Polyunsaturated Fatty 1,200 mg PO DAILY Nitroglycerin 0.4 mg Tablet [Nitrostat 0.4 MG Tablet] 0.4 mg SL Q5MIN PRN MR X 3 PRN PRN Reason: Chest Pain Multivitamin with Minerals [Myvitalife] 1 each PO DAILY Tumeric 1,000 mg PO DAILY Levothyroxine Sodium 25 Mcg [Synthroid 25 Mcg] 25 mcg PO DAILY Latanoprost [Xalatan] 1 drop OP EVENING MEAL Lactobacillus Acidophilus [Acidophilus Lactobacilli] 1 each PO DAILY Fluticasone/Umeclidin/Vilanter [Trelegy Ellipta 200-62.5-25] 1 each IH DAILY Ezetimibe 10 mg [Zetia 10 MG] 10 mg PO DAILY Cyanocobalamin (Vitamin B-12) [Vitamin B-12] 1,000 mcg PO DAILY Cholecalciferol (Vitamin D3) [Weekly-D] 1,250 mcg PO WEEKLY Carvedilol 3.125 mg [Coreg 3.125 MG] 3.125 mg PO BID Biotin/Lutein [Biotin Plus 5,000 Mcg Tablet] 1 each PO 3XW Atorvastatin Calcium [Lipitor] 5 mg PO 3XW Ascorbic Acid 500 mg [Vitamin C 500 MG] 500 mg PO DAILY Albuterol Sulfate [Proair Digihaler] 2 puffs IH Q6H PRN PRN PRN Reason: Shortness Of Breath/Wheezing Torsemide 10 mg PO DAILY Lisinopril/Hydrochlorothiazide [Lisinopril-Hctz 20-25 mg Tab] 1 tablet PO DAILY Amlodipine Besylate 2.5 mg PO HS Aspirin EC 81 mg [Ecotrin 81 mg] 1 tablet PO 3XW Changed Desvenlafaxine Succinate [Pristiq] 25 mg PO CLARIFY #0 Desvenlafaxine Succinate [Pristiq] 50 mg PO CLARIFY #0 Additional Instructions: Pristiq dose changed to every other day due to kidney function. Please discuss this with PCP as dose may need to be reduced outpatient if needed daily. USP ORDERS: ADMIT TO GROUP HOME CARE LOW SODIUM DIET PT/OT EVAL AND TREAT 4L/NC AT HS SEE ATTACHED MED LIST Follow up with: MASSIEL RODRÍGUEZ MD [Primary Care Provider] - 01/19/24 1:45 pm
[2024-01-15] MEDS ORDERED: NON-FORMULARY ITEM (Lisinopril/Hydrochlorothiazide [Lisinopril-Hctz 20-25 Mg Tab] 1 EACH T PO SCH (10:00)
[2024-01-15] MEDS: CEFTIN 500 MG PO ONE (10:20)
[2024-01-15] MEDS ORDERED: APRESOLINE 20 MG/ML INJ IV PRN (13:05)
[2024-01-15] MEDS ORDERED: CLONIDINE 0.1 MG TABLET PO PRN (18:09)
[2024-01-15] MEDS: CLONIDINE 0.1 MG TABLET PO PRN (18:23)
[2024-01-15] MEDS: MARY'S MOUTHWASH PO SCH (23:31)
[2024-01-16] MEDS: CEFTIN 500 MG PO SCH (09:07)
--- NOTE | 2024-01-16 10:00 | PCM.DS ---
Discharge Summary Date of Admission: 01/12/24 19:30 Date of Discharge: 01/16/24 Admitting Physician: YVETTE JOSEPH MD Primary Care Provider: MASSIEL RODRÍGUEZ MD Allergies Allergies amoxicillin Allergy (Unknown, Verified 03/27/23 21:48) Nausea clindamycin Allergy (Unknown, Verified 03/27/23 21:48) nitrofurantoin Allergy (Unknown, Verified 03/27/23 21:48) Nausea Sulfa (Sulfonamide Antibiotics) Allergy (Verified 01/12/24 11:17) vancomycin Allergy (Verified 01/12/24 16:51) IV contrast dye Allergy (Unknown, Uncoded 03/27/23 21:48) Hospital Summary - Hospital Course Hospital Course: 01/13/24 is a 88 year old female with PMHX of cataracts, PVD, COPD, hypothyroidism, COPD, OA, CKD, depression, and multiple medication allergies. S he presented to the ED on 01/12/24 stating that her dog injured the top of her left foot 3 weeks ago and her right foot 1 week ago with redness, and she developed tenderness and swelling the same day of the injuries. She states that she was recently placed on oral doxycycline without improvement. Additionally, the patient states she fell yesterday in the kitchen injuring her left upper back, left leg and right hand; denies LOC and states she "just falls". Pt admits to falling frequently at home. Family in room this AM explained she is to use a walker but uses a cane and does not do well with this. Will have PT eval pt for home needs vs. rehab. Pt denies abdominal pain, vomiting, diarrhea; admits to nausea for the past 5 days. In the ED, there was concern about bilateral leg cellulitis and also a UTI. The patient developed some erythematous skin streaking after receiving Vancomycin, so this was discontinued. She was started on Zyvox and Rocephin on admission. Skin has no redness or edema today therefore Zyvox stopped. Continued Rocephin for UTI. Venous duplex negative for DVT. CT head negative for any acute concern. Pristiq stopped d/t kidney function, discussed with pt. Radiology results reviewed and no concerning findings observed. Pt reports she was to have an Echo OP yesterday per cardiology and was unable to have therefore would like to have IP. Will order as she does have a heart hx with stent placement and multiple falls. She denies CP, SOB, abd. pain, N/V/D. 01/14/24 Pt sitting up in bed. She is wanting to go to rehab to get stronger. She admits she would benefit from this. Case management working on placement at [facility]. UC + e-coli will continue OP antibiotics. She is c/o sore in the bottom of her mouth from a dental appliance. Chlorhexidine mouthwash started. She has bandages covering skin lesions from her dog. No redness or erythema noted. She denies CP, SOB, abd. pain, N/V/D. 01/15/24 Pt sitting up in bed. She explains she had a restless night and did not sleep well. She explains she wants to leave today with home health care if she is not accepted at rehab facility. Notified case management of this information. BP elevated this AM. Lisinopril with HCTZ restarted. Will recheck after morning meds given. Wounds on BLLE improved. Discussed home wound care and to keep feet covered so dog does not continue to injure her. IV went bad this AM and antibiotics changed to oral. MORAIMA resolved. Pt denies CP, SOB, abd. pain, N/V/D. 01/16/24 Pt sitting up in bed. She is rather irritated that she has not been discharged to rehab yet and still awaiting insurance approval. Yesterday she wanted to leave but family came and talked her into staying and waiting for rehab admission. She continues to use her cane despite education on using walker. She is c/o of pain in the bottom of her mouth from a dental appliance. Dixie magic mouthwash was added last night. Previously pt was using Peridex and this was not helpful. She is wanting something to numb her mouth so she can eat. Will start orajel to use with meals. She is c/o edema of BLLE, advised to elevate legs to reduce edema as this helped the first day she was here. She has CKD so will avoid lasix. Pt lost her IV yesterday so antibiotics changed to oral. Culture of foot wound negative. Will d/c today to rehab if insurance approves. She denies any further concerns at this time. - Vitals & Intake/Output Vital Signs: Vital Signs Temperature 98.6 F 01/16/24 07:29 Pulse Rate 75 01/16/24 07:29 Respiratory Rate 16 01/16/24 07:29 Blood Pressure 136/59 01/16/24 07:29 O2 Sat by Pulse Oximetry 99 01/16/24 07:29 Intake & Output: Intake & Output 01/13/24 01/14/24 01/15/24 01/16/24 11:59 11:59 11:59 11:59 Intake Total 1280 1786 1424 2130 Output Total 1200 2250 2440 1350 Balance 16 -770 -6325 780 Weight 48.3 kg - Lab Result Diagrams: 01/15/24 05:20 01/15/24 05:20 Micro Results-Entire Visit: Microbiology 01/13/24 23:25 Wound Culture - Preliminary Foot - Left Top ORGANISMS ISOLATED ARE CONSISTENT WITH NORMAL SKIN MARCI SCANT GROWTH, NO PREDOMINANT ORGANISM 01/12/24 11:45 Urine Culture - Final Clean Catch Midstream Escherichia Coli 01/12/24 12:11 Blood Culture - Preliminary Blood 01/12/24 12:00 Blood Culture - Preliminary Blood - Procedures and Test Procedures and Tests throughout Hospitalization: Therapy Orders & Screens 01/12/24 20:05 PT Eval & Treat (MD Order) ONCE Reason for Eval:: leg cellulitis. Assess ambulatory assistance requirement. Recent fall. Diagnosis: Cellulitis of legs & feet; UTI; Nausea; Fall; Contusion of upper back OT Eval and Treat (MD Order) ONCE Comment: Physician Instructions: Reason For Exam: Evaluate: Yes Treat: Yes Diagnosis: Cellulitis of legs & feet; UTI; Nausea; Fall; Contusion of upper back 01/12/24 21:07 OT Screen per Nursing Assess ONCE Comment: Protocol Order Physician Instructions: Greater than 3 points order OT Admission Screening Reason For Exam: Triggered on Admission Diagnosis: Cellulitis of legs & feet; UTI; Nausea; Fall; Contusion of upper back Open Wound/Cellutlitis/Pressure Ulcers: Yes Acute Fx/ORIF/Change in wt bearing status: No Severe MUSCULOSKELETAL pain: No ADL Dysfunction: No Acute CVA w/Hemiparesis/Hemiplegia: No Decreased Functional Mobility/Strength: Yes Sprain/Strain: No Acute Post-op Mobility Dysfunction: No Total Points: 6 PT Screen per Nursing Assess ONCE Comment: Protocol Order Physician Instructions: Greater than 3 points order PT Admission Screenin Reason For Exam: Triggered on Admission Diagnosis: Cellulitis of legs & feet; UTI; Nausea; Fall; Contusion of upper back Open Wound/Cellutlitis/Pressure Ulcers: Yes Acute Fx/ORIF/Change in wt bearing status: No Severe MUSCULOSKELETAL pain: No ADL Dysfunction: No Acute CVA w/Hemiparesis/Hemiplegia: No Decreased Functional Mobility/Strength: Yes Sprain/Strain: No Acute Post-op Mobility Dysfunction: No Total Points: 6 01/13/24 00:58 Oxygen Nasal Cannula 4 lpm Comment: Diagnosis: Cellulitis of legs & feet; UTI; Nausea; Fall; Contusion of upper back Respiratory Therapy Assessment DAILY Comment: Diagnosis: Cellulitis of legs & feet; UTI; Nausea; Fall; Contusion of upper back 01/13/24 01:00 Respiratory MDI BID Comment: Diagnosis: Cellulitis of legs & feet; UTI; Nausea; Fall; Contusion of upper back Discharge Exam General Appearance: no apparent distress, alert Neurologic Exam: alert, oriented x 3, cooperative, normal mood/affect, nml cerebellar function, sensation nml, No motor deficits Eye Exam: PERRL, EOMI, eyes nml inspection Ears, Nose, Throat Exam: normal ENT inspection, pharynx normal, moist mucous membranes, other (floor of mouth right side redness) Neck Exam: normal inspection, non-tender, supple, full range of motion Respiratory Exam: normal breath sounds, lungs clear, No respiratory distress Cardiovascular Exam: regular rate/rhythm, normal heart sounds, edema (BLLE- non- pitting) Gastrointestinal/Abdomen Exam: soft, No tenderness, No mass Pelvic Exam: deferred Rectal Exam: deferred Back Exam: normal inspection, normal range of motion, No CVA tenderness, No vertebral tenderness Extremity Exam: normal inspection, normal range of motion Skin Exam: normal color, warm, dry, other (lesions BL feet apper to be healing.) Wound Assessment: Skin/Wound Assessment Wound/Incision Assessment Start: 01/12/24 19:53 Text: Status: Active Freq: Q6H Protocol: Document 01/16/24 07:00 RB (Rec: 01/16/24 07:43 RB [id number]) Wound/Incision Assessment Left Lower Lateral Calf Wound Assessment Shift Assessment Wound Type Skin Tear Wound Stage Non Pressure Wound Dressing Status Dry & Intact Drainage Amount Minimal Length (cm) (cm) 2 Width (cm) (cm) 2 Secondary Dressing Gauze Roll/Wrap Comment steri strips intact Right Upper Arm Wound Assessment Shift Assessment Wound Type Skin Tear Wound Stage Non Pressure Wound Dressing Status Reinforced Drainage Amount None Drainage Description Serosanguineous General Appearance Draining Length (cm) (cm) 1.3 Width (cm) (cm) 0.3 Wound Bed Greatest Portion Red (Granulation) Surrounding Tissue Dark Red,Purple Primary Dressing Steri Strips Secondary Dressing Absorbant Pad Comment steri strips intact Left Anterior Lower Leg Wound Assessment Shift Assessment Wound Type scab Wound Stage Non Pressure Wound Drainage Amount None Length (cm) (cm) 0.5 Width (cm) (cm) 0.8 Surrounding Tissue Tomas De Castro Primary Dressing Absorbant Pad Secondary Dressing Gauze Roll/Wrap Comment followed by dermatology Right Anterior Lower Leg Wound Assessment Shift Assessment Wound Type Skin Tear Wound Stage Non Pressure Wound Drainage Amount None Length (cm) (cm) 0.5 Width (cm) (cm) 1 Wound Bed Greatest Portion Red (Granulation) Primary Dressing Absorbant Pad Secondary Dressing Gauze Roll/Wrap Comment CDI Bilateral Lower Extremities Wound Assessment Shift Assessment Wound Type Multiple Bruises Wound Stage Non Pressure Wound Drainage Amount None General Appearance Open to air,Clean/Dry Comment multiple bruising to BLE Right Foot Wound Assessment Shift Assessment Wound Type Healing Wound Wound Stage Non Pressure Wound Drainage Amount None General Appearance Well Approximated Length (cm) (cm) 0.8 Width (cm) (cm) 1 Surrounding Tissue Tomas De Castro Primary Dressing Mepilex Lite Comment CDI Left Foot Wound Assessment Shift Assessment Wound Type Healing wound Wound Stage Non Pressure Wound Dressing Status Drainage circled Drainage Amount Minimal Drainage Description Serosanguineous General Appearance Well Approximated Length (cm) (cm) 1 Width (cm) (cm) 1 Surrounding Tissue Bright Red,Edematous Primary Dressing Mepilex Lite Comment CDI Wound Photo Photo Taken No Final Diagnosis/Problem List - Final Discharge Diagnosis/Problem (1) UTI (urinary tract infection) Current Visit: Yes Status: Acute Code(s): N39.0 - URINARY TRACT INFECTION, SITE NOT SPECIFIED (2) Acute on chronic renal failure Current Visit: Yes Status: Acute Code(s): N17.9 - ACUTE KIDNEY FAILURE, UNSPECIFIED; N18.9 - CHRONIC KIDNEY DISEASE, UNSPECIFIED (3) Cellulitis of both lower extremities Current Visit: Yes Status: Acute Code(s): L03.115 - CELLULITIS OF RIGHT LOWER LIMB; L03.116 - CELLULITIS OF LEFT LOWER LIMB (4) Skin lesion of lower extremity Current Visit: Yes Status: Acute Code(s): L98.9 - DISORDER OF THE SKIN AND SUBCUTANEOUS TISSUE, UNSPECIFIED (5) Multiple falls Current Visit: Yes Status: Acute Code(s): R29.6 - REPEATED FALLS (6) HTN (hypertension) Current Visit: Yes Status: Acute Code(s): I10 - ESSENTIAL (PRIMARY) HYPERTENSION (7) Hypothyroidism Current Visit: Yes Status: Acute Code(s): E03.9 - HYPOTHYROIDISM, UNSPECIFIED (8) Depression Current Visit: Yes Status: Chronic Code(s): F32.A - DEPRESSION, UNSPECIFIED (9) Nausea Current Visit: Yes Status: Resolved Code(s): R11.0 - NAUSEA (10) COPD (chronic obstructive pulmonary disease) Current Visit: Yes Status: Chronic Assessment & Plan: (1) UTI (urinary tract infection) Current Visit: Yes Status: Acute Assessment & Plan: - Rocephin IV - Pt admits to feeling foggy at home yesterday and now improved today. CT head negative for acute concerns. Likely related to UTI. - UC gram negative sensitivity pending 01/13 - + Ecoli UC- continue ceftriaxone 01/14 - pt lost IV- Change to oral medication Code(s): N39.0 - URINARY TRACT INFECTION, SITE NOT SPECIFIED (2) Acute on chronic renal failure Current Visit: Yes Status: Acute Assessment & Plan: - creat 1.77, baseline 2.04- better than normal - NS @ 125- stopped - Hold torsemide, ACEI/HCTZ - Follow renal function. - Patient follows Dr. Velez. 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 - Venous duplex of BLLE negative for DVT 01/14 - resolved - Changed to oral IV antibiotics 01/15 - advised to elevate BLLE Code(s): L03.115 - CELLULITIS OF RIGHT LOWER LIMB; L03.116 - CELLULITIS OF LEFT LOWER LIMB (4) Skin lesion of lower extremity Current Visit: Yes Status: Acute Assessment & Plan: - From dog per pt. - + scabs seen on BL lower legs and feet in various stages of healing - see pics on chart by nursing - Continue wound care PRN 01/14 - educated to cover BLLE at home to prevent dog from injuring her skin. - appear to be healing 01/15 - wound culture negative Code(s): L98.9 - DISORDER OF THE SKIN AND SUBCUTANEOUS TISSUE, UNSPECIFIED (5) Multiple falls Current Visit: Yes Status: Acute Assessment & Plan: - PT eval - Per family pt to use walker but has been using cane and falling at home - consider rehab placement- will be short term - Echo - All radiology results reviewed- no acute concerns 01/13 - plan is to tc to [facility] for rehab today 01/14 - Pt want to d/c with [facility] if not accepted to rehab today.- case management made aware. 01/15 - fmaily came in yesterday and convinced pt to go to rehab facility- awaiting insurance to approve. Code(s): R29.6 - REPEATED FALLS (6) HTN (hypertension) Current Visit: Yes Status: Acute Assessment & Plan: - BP stable with meds held for MORAIMA - Continue Coreg, amlodipine - IV fluids stopped 01/14 - Clonidine 0.1 added PRN for HTN - HTN may be r/t anxiety Code(s): I10 - ESSENTIAL (PRIMARY) HYPERTENSION (7) Hypothyroidism Current Visit: Yes Status: Acute Assessment & Plan: -Continue synthroid - TSH 1.430- ok Code(s): E03.9 - HYPOTHYROIDISM, UNSPECIFIED (8) Depression Current Visit: Yes Status: Chronic Assessment & Plan: - Pristiq held d/t kidney function - Discussed with pt that the dose of Pristiq she is on is too high to take daily due to her CKD. This needs to be discussed with PCP OP. Consider changing to every other day if going to stay on this medication. Code(s): F32.A - DEPRESSION, UNSPECIFIED (9) Nausea Current Visit: Yes Status: Resolved Assessment & Plan: - resolved - Zofran IV PRN Code(s): R11.0 - NAUSEA (10) COPD (chronic obstructive pulmonary disease) Current Visit: Yes Status: Chronic Assessment & Plan: - baseline 4LNC at night - RA 98% during day when awake. (11) Oral pain Current Visit: Yes Status: Acute Assessment & Plan: - from dental appliance- will need OP f/u with dentist - orajel added to use prior to meals so pt can eat - Dixie shandra PRN - peridex stopped Code(s): K13.79 - OTHER LESIONS OF ORAL MUCOSA - Discharge Discharge Date: 01/16/24 (rehab) Disposition: DC TO OTHER HOSP Condition: Stable Prescriptions: New Chlorhexidine Gluconate 15 ml MM BID 10 Days #473 ml Cefuroxime Axetil 500 mg [Ceftin 500 mg] 500 mg PO BID 7 Days #14 tablet Continue Pyridoxine HCl 100 mg [Vitamin B-6 (Pyridoxine) 100 MG] 100 mg PO DAILY [place] 3 Polyunsaturated Fatty 1,200 mg PO DAILY Nitroglycerin 0.4 mg Tablet [Nitrostat 0.4 MG Tablet] 0.4 mg SL Q5MIN PRN MR X 3 PRN PRN Reason: Chest Pain Multivitamin with Minerals [Myvitalife] 1 each PO DAILY Tumeric 1,000 mg PO DAILY Levothyroxine Sodium 25 Mcg [Synthroid 25 Mcg] 25 mcg PO DAILY Latanoprost [Xalatan] 1 drop OP EVENING MEAL Lactobacillus Acidophilus [Acidophilus Lactobacilli] 1 each PO DAILY Fluticasone/Umeclidin/Vilanter [Trelegy Ellipta 200-62.5-25] 1 each IH DAILY Ezetimibe 10 mg [Zetia 10 MG] 10 mg PO DAILY Cyanocobalamin (Vitamin B-12) [Vitamin B-12] 1,000 mcg PO DAILY Cholecalciferol (Vitamin D3) [Weekly-D] 1,250 mcg PO WEEKLY Carvedilol 3.125 mg [Coreg 3.125 MG] 3.125 mg PO BID Biotin/Lutein [Biotin Plus 5,000 Mcg Tablet] 1 each PO 3XW Atorvastatin Calcium [Lipitor] 5 mg PO 3XW Ascorbic Acid 500 mg [Vitamin C 500 MG] 500 mg PO DAILY Albuterol Sulfate [Proair Digihaler] 2 puffs IH Q6H PRN PRN PRN Reason: Shortness Of Breath/Wheezing Torsemide 10 mg PO DAILY Lisinopril/Hydrochlorothiazide [Lisinopril-Hctz 20-25 mg Tab] 1 tablet PO DAILY Amlodipine Besylate 2.5 mg PO HS Aspirin EC 81 mg [Ecotrin 81 mg] 1 tablet PO 3XW Changed Desvenlafaxine Succinate [Pristiq] 25 mg PO CLARIFY #0 Desvenlafaxine Succinate [Pristiq] 50 mg PO CLARIFY #0 Instructions: Cellulitis (Skin Infection), Adult ED Additional Instructions: Pristiq dose changed to every other day due to kidney function. Please discuss this with PCP as dose may need to be reduced outpatient if needed daily. ADMIT TO A PENITENTIARY FACILITY USE A WALKER AT ALL TIMES LOW SODIUM DIET PT/OT EVAL AND TREAT 4L/NC AT BEDTIME Follow up with: FLORY RAMIREZ DPM [ACTIVE STAFF] - Call for Appointment MASSIEL RODRÍGUEZ MD [Primary Care Provider] - 01/19/24 1:45 pm
[2024-01-16] MEDS: BENZ-O-STHETIC MM SCH (11:08)
[2024-01-17 05:04] LABS: Hematocrit 32.7 % (34.1-44.9); Hemoglobin 10.5 g/dL (11.2-15.7); Mean Cell Volume 96.2 fL (79.4-94.8); Mean Corpuscular Hemoglobin 30.9 pg (25.6-32.2); Mean Corpuscular Hgb Concent. 32.1 g/dL (32.2-35.5); Mean Platelet Volume 11.4 fL (9.4-12.3); Platelet Count 219 x10^3/uL (182-369); Red Cell Distribution Width 13.9 % (11.7-14.4); White Blood Count 6.7 x10^3/uL (3.98-10.04)
[2024-01-17 05:19] LABS: ALBUMIN 3.3 g/dL (3.5-5.0); ANION GAP 8.8 MEQ/L (5-15); BILIRUBIN,TOTAL 0.4 mg/dL (0.2-1.3); Calcium 9.6 mg/dL (8.4-10.2); Creatinine 1 1.33 mg/dL (0.52-1.04); EST GLOMERULAR FILTRATION RATE 38.7 ML/MIN; Potassium 4.1 mmol/L (3.5-5.1); Total Protein 5.9 g/dL (6.3-8.2)
--- NOTE | 2024-01-17 05:42 | PCM.NOTE ---
Date and Time: 01/17/24 0538 Subjective Assessment: is a 88 year old female with PMHX of cataracts, PVD, COPD, hypothyroidism, COPD, OA, CKD, depression, and multiple medication allergies admitted 01/12/24 admitted for frequent falls, UTI, MORAIMA, and cellulitis of bilateral lower extremities. Patient reports experiencing multiple falls at home -most recently the day prior to. She also endorses a week history of pain, redness, and swelling to her right foot secondary to her dog jumping on her - she had previously received oral doxycycline for this with no resolution. Wound culture findings are negative. On arrival to ED, lab findings were consistent with MORAIMA at 2.33 which has now improved to patients baseline of 1.2. Additional findings of Ecoli on culture with initial treatment with ceftriaxone - now on cefuoxime. There is concern for cellulitis of her BLE with swelling and redness, multiples open lesion areas due to dog which now appear to be healing with abx and wound care. Patient is requesting rehab on discharge with insurance pending approval- IPPT until discharge. 01/17/24: Met with patient bedside. Endorses increased edema to BLE overnight. Concerned about non-healing wounds to the anterior aspect of bilateral feet following dog scratches. Will obtain CT of BLE and consult podiatry- appreciate recs. Plan for rehab on discharge pending approval. Continue ceftin as patient has multiple allergies, wound culture negative. <CYDNEY BELLAMY - Last Filed: 01/17/24 14:36> Date and Time: 01/17/242232 <ELEONORA RIOS - Last Filed: 01/17/24 22:34> - Review of Systems Constitutional: No Symptoms Eyes: No Symptoms Ears, Nose, & Throat: No Symptoms Respiratory: No Symptoms Cardiac: No Symptoms Abdominal/Gastrointestinal: No Symptoms Genitourinary Symptoms: No Symptoms Musculoskeletal: No Symptoms Skin: No Symptoms, Skin Lesions (BLE anterior aspect of feet) Neurological: No Symptoms Psychological: No Symptoms Endocrine: No Symptoms Hematologic/Lymphatic: No Symptoms Immunological/Allergic: No Symptoms <CYDNEY BELLAMY - Last Filed: 01/17/24 14:36> Objective Exam General Appearance: no apparent distress Neurologic Exam: alert, oriented x 3, cooperative Skin Exam: normal color Wound Assessment: Skin/Wound Assessment Wound/Incision Assessment Start: 01/12/24 19:53 Text: Status: Active Freq: Q6H Protocol: Document 01/17/24 01:00 AF (Rec: 01/17/24 03:53 AF [id number]) Wound/Incision Assessment Left Lower Lateral Calf Wound Assessment Shift Assessment Wound Type Skin Tear Wound Stage Non Pressure Wound Dressing Status Dry & Intact Drainage Amount Minimal Length (cm) (cm) 2 Width (cm) (cm) 2 Secondary Dressing Gauze Roll/Wrap Comment NO BLEEDING OR DRAINAGE NOTED, remains true. Right Upper Arm Wound Assessment Shift Assessment Wound Type Skin Tear Wound Stage Non Pressure Wound Dressing Status Reinforced Drainage Amount None Drainage Description Serosanguineous General Appearance Draining Length (cm) (cm) 1.3 Width (cm) (cm) 0.3 Wound Bed Greatest Portion Red (Granulation) Surrounding Tissue Dark Red,Purple Topical Solution/Irrigant Saline Irrigant Primary Dressing Steri Strips Secondary Dressing Absorbant Pad Comment STERI STRIPS CDI, remains true . Left Anterior Lower Leg Wound Assessment Shift Assessment Wound Type scab Wound Stage Non Pressure Wound Dressing Status Dry & Intact Drainage Amount None Drainage Odor None/Absent Length (cm) (cm) 0.5 Width (cm) (cm) 0.8 Surrounding Tissue Home Primary Dressing Absorbant Pad Secondary Dressing Gauze Roll/Wrap Comment followed by dermatology- REMAINS TRUE Right Anterior Lower Leg Wound Assessment Shift Assessment Wound Type Skin Tear Wound Stage Non Pressure Wound Drainage Amount None Length (cm) (cm) 0.5 Width (cm) (cm) 1 Wound Bed Greatest Portion Red (Granulation) Primary Dressing Absorbant Pad Secondary Dressing Gauze Roll/Wrap Comment DRESSING INTACT Bilateral Lower Extremities Wound Assessment Shift Assessment Wound Type Multiple Bruises Wound Stage Non Pressure Wound Drainage Amount None General Appearance Open to air,Clean/Dry Comment multiple bruising to BLE- REMAINS TRUE Right Foot Wound Assessment Shift Assessment Wound Type Healing Wound Wound Stage Non Pressure Wound Drainage Amount None General Appearance Well Approximated Length (cm) (cm) 0.8 Width (cm) (cm) 1 Surrounding Tissue Home Primary Dressing Mepilex Lite Comment DRESSINGS INTACT Left Foot Wound Assessment Shift Assessment Wound Type Healing wound Wound Stage Non Pressure Wound Dressing Status Drainage circled Drainage Amount Minimal Drainage Description Serosanguineous General Appearance Well Approximated Length (cm) (cm) 1 Width (cm) (cm) 1 Surrounding Tissue Bright Red,Edematous Primary Dressing Mepilex Lite Comment DRESSINGS INTACT Wound Photo Photo Taken No Eye Exam: PERRL Ears, Nose, Throat Exam: normal ENT inspection Neck Exam: normal inspection Respiratory Exam: normal breath sounds, lungs clear Cardiovascular Exam: regular rate/rhythm, normal heart sounds Gastrointestinal/Abdomen Exam: soft, normal bowel sounds Extremity Exam: inflammation (BLE edema +2 BLE open wound to anterior aspect of feet) Back Exam: normal inspection Pelvic Exam: deferred <CYDNEY BELLAMY - Last Filed: 01/17/24 14:36> Wound Assessment: Skin/Wound Assessment Wound/Incision Assessment Start: 01/12/24 19:53 Text: Status: Active Freq: Q6H Protocol: Document 01/17/24 19:00 MP (Rec: 01/17/24 21:01 MP [id number]) Wound/Incision Assessment Left Lower Lateral Calf Wound Assessment Shift Assessment Wound Type Skin Tear Wound Stage Non Pressure Wound Dressing Status Dry & Intact Drainage Amount Minimal Length (cm) (cm) 2 Width (cm) (cm) 2 Secondary Dressing Gauze Roll/Wrap Comment NO BLEEDING OR DRAINAGE NOTED, remains true. Right Upper Arm Wound Assessment Shift Assessment Wound Type Skin Tear Wound Stage Non Pressure Wound Dressing Status Reinforced Drainage Amount None Drainage Description Serosanguineous General Appearance Draining Length (cm) (cm) 1.3 Width (cm) (cm) 0.3 Wound Bed Greatest Portion Red (Granulation) Surrounding Tissue Dark Red,Purple Topical Solution/Irrigant Saline Irrigant Primary Dressing Steri Strips Secondary Dressing Absorbant Pad Comment STERI STRIPS CDI, remains true . Left Anterior Lower Leg Wound Assessment Shift Assessment Wound Type scab Wound Stage Non Pressure Wound Dressing Status Dry & Intact Drainage Amount None Drainage Odor None/Absent Length (cm) (cm) 0.5 Width (cm) (cm) 0.8 Surrounding Tissue Home Primary Dressing Absorbant Pad Secondary Dressing Gauze Roll/Wrap Comment followed by dermatology- REMAINS TRUE Right Anterior Lower Leg Wound Assessment Shift Assessment Wound Type Skin Tear Wound Stage Non Pressure Wound Drainage Amount None Length (cm) (cm) 0.5 Width (cm) (cm) 1 Wound Bed Greatest Portion Red (Granulation) Primary Dressing Absorbant Pad Secondary Dressing Gauze Roll/Wrap Comment DRESSING INTACT Bilateral Lower Extremities Wound Assessment Shift Assessment Wound Type Multiple Bruises Wound Stage Non Pressure Wound Drainage Amount None General Appearance Open to air,Clean/Dry Comment multiple bruising to BLE- REMAINS TRUE Right Foot Wound Assessment Shift Assessment Wound Type Healing Wound Wound Stage Non Pressure Wound Drainage Amount None General Appearance Well Approximated Length (cm) (cm) 0.8 Width (cm) (cm) 1 Surrounding Tissue Home Primary Dressing Mepilex Lite Comment DRESSINGS INTACT Left Foot Wound Assessment Shift Assessment Wound Type Healing wound Wound Stage Non Pressure Wound Dressing Status Drainage circled Drainage Amount Minimal Drainage Description Serosanguineous General Appearance Well Approximated Length (cm) (cm) 1 Width (cm) (cm) 1 Surrounding Tissue Bright Red,Edematous Primary Dressing Mepilex Lite Comment DRESSINGS INTACT Wound Photo Photo Taken No <SUNITHAELEONORA POSADAS - Last Filed: 01/17/24 22:34> Objective Data Vital Signs: Vital Signs - 24 hr Temp Pulse Resp BP Pulse Ox 01/17/24 03:50 97.8 F 72 18 155/72 94 L 01/16/24 23:49 98.5 F 86 17 186/84 96 01/16/24 19:48 98.5 F 86 17 186/84 96 01/16/24 19:05 89 18 93 L 01/16/24 15:56 98.6 F 82 16 131/67 98 01/16/24 11:27 97.6 F 80 16 149/72 98 01/16/24 07:29 98.6 F 75 16 136/59 99 01/16/24 07:07 77 16 92 L Pain Assessment - Last Documented Pain Intensity 1 Intake and Output: Intake & Output 01/14/24 01/15/24 01/16/24 01/17/24 11:59 11:59 11:59 11:59 Intake Total 1786 1424 2130 990 Output Total 2250 2440 1350 700 Balance -464 -1016 805 290 Lab Results: Lab Results-Last 24 Hours 01/17/24 01/17/24 Range/Units 04:15 04:15 WBC 6.7 (3.98-10.04) x10^3/uL RBC 3.40 L (3.93-5.22) x10^6/uL Hgb 10.5 L (11.2-15.7) g/dL Hct 32.7 L (34.1-44.9) % MCV 96.2 H (79.4-94.8) fL MCH 30.9 (25.6-32.2) pg MCHC 32.1 L (32.2-35.5) g/dL RDW 13.9 (11.7-14.4) % Plt Count 219 (182-369) x10^3/uL MPV 11.4 (9.4-12.3) fL Sodium 139 (135-145) mmol/L Potassium 4.1 (3.5-5.1) mmol/L Chloride 106 (98-107) mmol/L Carbon Dioxide 28 (22-30) mmol/L Anion Gap 8.8 (5-15) MEQ/L BUN 34 H (7-17) mg/dL Creatinine 1.33 H (0.52-1.04) mg/dL Estimated GFR 38.7 ML/MIN Glucose 109 H (74-106) mg/dL Calcium 9.6 (8.4-10.2) mg/dL Total Bilirubin 0.40 (0.2-1.3) mg/dL AST 38 H (14-36) U/L ALT 26 (0-35) U/L Alkaline Phosphatase 51 (38-126) U/L Serum Total Protein 5.9 L (6.3-8.2) g/dL Albumin 3.3 L (3.5-5.0) g/dL <CYDNEY BELLAMY - Last Filed: 01/17/24 14:36> Vital Signs: Vital Signs - 24 hr Temp Pulse Resp BP Pulse Ox 01/17/24 19:53 98.7 F 78 16 139/69 94 L 01/17/24 18:33 75 18 95 01/17/24 16:00 97.2 F 83 17 183/95 98 01/17/24 12:00 97.1 F 75 16 140/70 93 L 01/17/24 07:03 72 18 99 01/17/24 07:00 97.1 F 65 16 142/66 99 01/17/24 03:50 97.8 F 72 18 155/72 94 L 01/16/24 23:49 98.5 F 86 17 186/84 96 Pain Assessment - Last Documented Pain Intensity 1 Intake and Output: Intake & Output 01/15/24 01/16/24 01/17/24 01/18/24 11:59 11:59 11:59 11:59 Intake Total 1424 2130 1680 240 Output Total 2440 9125 089 7794 Balance -1016 725 743 -7319 Lab Results: Lab Results-Last 24 Hours 01/17/24 01/17/24 Range/Units 04:15 04:15 WBC 6.7 (3.98-10.04) x10^3/uL RBC 3.40 L (3.93-5.22) x10^6/uL Hgb 10.5 L (11.2-15.7) g/dL Hct 32.7 L (34.1-44.9) % MCV 96.2 H (79.4-94.8) fL MCH 30.9 (25.6-32.2) pg MCHC 32.1 L (32.2-35.5) g/dL RDW 13.9 (11.7-14.4) % Plt Count 219 (182-369) x10^3/uL MPV 11.4 (9.4-12.3) fL Sodium 139 (135-145) mmol/L Potassium 4.1 (3.5-5.1) mmol/L Chloride 106 (98-107) mmol/L Carbon Dioxide 28 (22-30) mmol/L Anion Gap 8.8 (5-15) MEQ/L BUN 34 H (7-17) mg/dL Creatinine 1.33 H (0.52-1.04) mg/dL Estimated GFR 38.7 ML/MIN Glucose 109 H (74-106) mg/dL Calcium 9.6 (8.4-10.2) mg/dL Total Bilirubin 0.40 (0.2-1.3) mg/dL AST 38 H (14-36) U/L ALT 26 (0-35) U/L Alkaline Phosphatase 51 (38-126) U/L Serum Total Protein 5.9 L (6.3-8.2) g/dL Albumin 3.3 L (3.5-5.0) g/dL Radiology Exams: Radiology Procedures Category Date Time Status LOWER EXTREMITY WO CONTRAST [CT] Urgent Exams 01/17/24 14:34 Completed LOWER EXTREMITY WO CONTRAST [CT] Urgent Exams 01/17/24 14:35 Completed Multi-Disciplinary Progress Notes: Multi-Disciplinary Progress Notes 01/17/24 17:36 Physical Therapy Note by Dex(L#[id number]),Layne ATTEMPTED P.T. RX X 2 THIS AFTERNOON. PT. WAS TAKEN FOR CT ON ONE ATTEMPT AND WAS RECEIVING COMPRESSION WRAPS ON LLS PER PODIATRY STAFF ON 2ND ATTEMPT. WILL ATTEMPT TOMORROW. Initialized on 01/17/24 17:36 - END OF NOTE 01/17/24 12:54 Case Management Note by Marisol Rajan JUST SPOKE WITH RODNEY AT [facility], REPORTS THAT AUTH IS STILL PENDING INSURANCE APPROVAL Initialized on 01/17/24 12:54 - END OF NOTE 01/17/24 08:00 (created 01/17/24 12:55) Case Management Note by Marisol Rajan CALL TO [facility] TO CHECK ON STATUS OF AUTH - RODNEY REPORTS THAT IT IS STILL PENDING Initialized on 01/17/24 12:55 - END OF NOTE <ELEONORA RIOS - Last Filed: 01/17/24 22:34> Assessment/Plan (1) UTI (urinary tract infection) Current Visit: Yes Status: Acute Assessment & Plan: - Ecoli on culture - continue cefuroxime Code(s): N39.0 - URINARY TRACT INFECTION, SITE NOT SPECIFIED (2) Acute on chronic renal failure Current Visit: Yes Status: Acute Assessment & Plan: -baseline around 1.2-1.3 - at baseline Code(s): N17.9 - ACUTE KIDNEY FAILURE, UNSPECIFIED; N18.9 - CHRONIC KIDNEY DISEASE, UNSPECIFIED (3) Cellulitis of both lower extremities Current Visit: Yes Status: Acute Assessment & Plan: -- Venous duplex of BLLE negative for DVT - Continue cefuroxime - continue to elevate BLLE -CT of BLE w/o contrast today - podiatry consult Code(s): L03.115 - CELLULITIS OF RIGHT LOWER LIMB; L03.116 - CELLULITIS OF LEFT LOWER LIMB (4) Contusion of left leg Current Visit: Yes Status: Acute Assessment & Plan: - Secondary to dog scratches -pics in patients chart -Wound cultures negative - Continue wound care PRN - advised to cover BLLE at home to prevent dog from injuring her skin. - appear to be healing -CT to BLE - podiatry consult - appreciate recs Code(s): S80.12XA - CONTUSION OF LEFT LOWER LEG, INITIAL ENCOUNTER (5) HTN (hypertension) Current Visit: Yes Status: Acute Assessment & Plan: - BP stable with meds held for MORAIMA - Continue Coreg, amlodipine - IV fluids stopped 01/14 - Clonidine 0.1 added PRN for HTN - HTN may be r/t anxiety Code(s): I10 - ESSENTIAL (PRIMARY) HYPERTENSION (6) Hypothyroidism Current Visit: Yes Status: Acute Assessment & Plan: -Continue synthroid - TSH WNL- no adjustments needed Code(s): E03.9 - HYPOTHYROIDISM, UNSPECIFIED (7) Multiple falls Current Visit: Yes Status: Acute Assessment & Plan: - PT eval with recommendations for rehab stay to address weakness an gait instability - patient initially wanting C but has now agreed to rehab placment -rehab pending insurance approval Code(s): R29.6 - REPEATED FALLS (8) Oral pain Current Visit: Yes Status: Acute Assessment & Plan: - from dental appliance- will need OP f/u with dentist - orajel added to use prior to meals so pt can eat - Dixie magic PRN - peridex stopped -viscous lidocaine Code(s): K13.79 - OTHER LESIONS OF ORAL MUCOSA (9) COPD (chronic obstructive pulmonary disease) Current Visit: Yes Status: Chronic Assessment & Plan: -Does not appear to be in exacerbation -RT following, supplemental oxygen with goal spo2 88-92% -Nebs prn - bronchodilator - baseline 4LNC at night - RA 98% during day when awake. (10) Depression Current Visit: Yes Status: Chronic Assessment & Plan: - Pristiq held d/t kidney function - Discussed with pt that the dose of Pristiq she is on is too high to take daily due to her CKD. This needs to be discussed with PCP OP. Consider changing to every other day if going to stay on this medication. Code(s): F32.A - DEPRESSION, UNSPECIFIED (11) Nausea Current Visit: Yes Status: Resolved Assessment & Plan: - resolved - Zofran IV PRN Code(s): R11.0 - NAUSEA <CYDNEY BELLAMY - Last Filed: 01/17/24 14:36> KAY Encounter - KAY Encounter Attestation KAY Encounter Attestation: "IhtoibaspersonallyseenandexamyEnriqueGRANTARTEMIORAZSukh BAUTISTAE andhavediscussed pertinent aspects of their care with Cydney Bellamy and agree with the history, physical exam (any modifications based on my personal exam will be noted below), assessment, and plan as outlined in original note. Please see immediately below for my summary of findings and additional assessment and plan along with any meaningful corrections/explanations to the Subjective/Objective portions of the KAY note will be noted." My portion of the encounter took place via telemedicine. -Patient concerned about persistent pain and swelling of bilateral feet. CT obtained and right foot imaging (without contrast) concerning for abscess. Podiatry consulted. -Torsemide also resumed given lower leg swelling <ELEONORA RIOS - Last Filed: 01/17/24 22:34>
[2024-01-17] MEDS: VITAMIN D2 PO SCH (09:28)
[2024-01-17] MEDS: DEMADEX 20 MG PO SCH (13:25)
--- NOTE | 2024-01-17 15:29 | XRAY ---
Indication: Open wound/edema. Dog scratch. Multiple contiguous axial images obtained left foot without contrast. Sagittal and coronal reformatted images obtained. Comparison: None Visualized left ankle/foot mortise appears anatomic. Diffuse ankle and foot cutaneous soft tissue swelling/edema, greatest medial aspect. Lesser degree soft tissue swelling/edema seen of the visualized lower leg. No focal solid/cystic soft tissue mass or abnormal fluid collection. No acute fracture, suspicious bony lesions, or osseous destructive process. Impression: Diffuse cutaneous soft tissue swelling/edema. Remaining CT left foot without contrast exam is negative.
--- NOTE | 2024-01-17 15:34 | XRAY ---
Indication: Open wound/edema. Dog scratch. Multiple contiguous axial images obtained right foot without contrast. Sagittal and coronal reformatted images obtained. Comparison: None Visualized right ankle/foot mortise appears anatomic. Diffuse lower leg, ankle, and foot moderate cutaneous soft tissue swelling/edema. Greatest extent seen medial foot where there is a subcutaneous fluid collection at least 4.7 x 6.5 cm and 1 mm in thickness, possible abscess in the right clinical setting. Lack of IV contrast precludes further characterization. No other focal solid/cystic soft tissue mass or abnormal fluid collection. No acute fracture, suspicious bony lesions, or osseous destructive process. Impression: Diffuse cutaneous soft tissue swelling/edema. Subcutaneous fluid collection medial foot. Rule out abscess.
[2024-01-18 04:49] LABS: Absolute Neutrophil Ct (ANC) 4.42 x10^3/uL (1.56-6.13); BASOPHIL % 0.6 % (0.1-1.2); Basophil (Absolute #) 0.04 x10^3/uL (0.01-0.08); Eosinophil (Absolute #) 0.21 x10^3/uL (0.04-0.36); Hematocrit 33.6 % (34.1-44.9); Hemoglobin 10.8 g/dL (11.2-15.7); IMMATURE GRAN # 0.02 x10^3u/L (0.001-0.031); IMMATURE GRAN % 0.3 % (0.001-0.429); Lymphocyte (Absolute #) 1.37 x10^3/uL (1.18-3.74); Lymphocytes % 19.6 % (19.3-51.7); Mean Cell Volume 96.8 fL (79.4-94.8); Mean Corpuscular Hemoglobin 31.1 pg (25.6-32.2); Mean Corpuscular Hgb Concent. 32.1 g/dL (32.2-35.5); Monocyte (Absolute #) 0.92 x10^3/uL (0.24-0.86); Monocytes % 13.2 % (4.7-12.5); Neutrophil % 63.3 % (34.0-71.1); Platelet Count 229 x10^3/uL (182-369); Red Blood Count 3.47 x10^6/uL (3.93-5.22); Red Cell Distribution Width 13.8 % (11.7-14.4)
--- NOTE | 2024-01-18 05:08 | PCM.NOTE ---
Date and Time: 01/18/24 0507 Subjective Assessment: is a 88 year old female with PMHX of cataracts, PVD, COPD, hypothyroidism, COPD, OA, CKD, depression, and multiple medication allergies admitted 01/12/24 admitted for frequent falls, UTI, MORAIMA, and cellulitis of bilateral lower extremities. Patient reports experiencing multiple falls at home -most recently the day prior to. She also endorses a week history of pain, redness, and swelling to her right foot secondary to her dog jumping on her - she had previously received oral doxycycline for this with no resolution. Wound culture findings are negative. On arrival to ED, lab findings were consistent with MORAIMA at 2.33 which has now improved to patients baseline of 1.2. Additional findings of Ecoli on culture with initial treatment with ceftriaxone - now on cefuoxime. There is concern for cellulitis of her BLE with swelling and redness, multiples open lesion areas due to dog which now appear to be healing with abx and wound care. Patient is requesting rehab on discharge with insurance pending approval- IPPT until discharge. 01/17/24: Met with patient bedside. Endorses increased edema to BLE overnight. Concerned about non-healing wounds to the anterior aspect of bilateral feet following dog scratches. Will obtain CT of BLE and consult podiatry- appreciate recs. Plan for rehab on discharge pending approval. Continue ceftin as patient has multiple allergies, wound culture negative. 01/17: No overnight events noted. Discussed CT of BLE with patient- podiatry does not think this is truly an abscess per his read, most likely soft tissue edema. BLE compression dressings. Will continue Ceftin for now. Patient does endorse a cough this morning. Lung sounds clear on auscultation. Will obtain CXR. Continue to hold HCTZ with elevated creat. Placement pending. May need [facility] if not approved. - Review of Systems Constitutional: No Symptoms Eyes: No Symptoms Ears, Nose, & Throat: No Symptoms Respiratory: Cough Cardiac: No Symptoms Abdominal/Gastrointestinal: No Symptoms Genitourinary Symptoms: No Symptoms Musculoskeletal: No Symptoms Skin: Cellulitis, Skin Lesions Neurological: No Symptoms Psychological: No Symptoms Endocrine: No Symptoms Hematologic/Lymphatic: No Symptoms Immunological/Allergic: No Symptoms Objective Exam General Appearance: no apparent distress Neurologic Exam: alert, oriented x 3, cooperative Skin Exam: normal color Wound Assessment: Skin/Wound Assessment Wound/Incision Assessment Start: 01/12/24 19:53 Text: Status: Active Freq: Q6H Protocol: Document 01/18/24 01:00 MP (Rec: 01/18/24 01:33 MP [id number]) Wound/Incision Assessment Left Lower Lateral Calf Wound Assessment Shift Assessment Wound Type Skin Tear Wound Stage Non Pressure Wound Dressing Status Dry & Intact Drainage Amount Minimal Length (cm) (cm) 2 Width (cm) (cm) 2 Secondary Dressing Gauze Roll/Wrap Comment NO BLEEDING OR DRAINAGE NOTED, remains true. Right Upper Arm Wound Assessment Shift Assessment Wound Type Skin Tear Wound Stage Non Pressure Wound Dressing Status Reinforced Drainage Amount None Drainage Description Serosanguineous General Appearance Draining Length (cm) (cm) 1.3 Width (cm) (cm) 0.3 Wound Bed Greatest Portion Red (Granulation) Surrounding Tissue Dark Red,Purple Topical Solution/Irrigant Saline Irrigant Primary Dressing Steri Strips Secondary Dressing Absorbant Pad Comment STERI STRIPS CDI, remains true . Left Anterior Lower Leg Wound Assessment Shift Assessment Wound Type scab Wound Stage Non Pressure Wound Dressing Status Dry & Intact Drainage Amount None Drainage Odor None/Absent Length (cm) (cm) 0.5 Width (cm) (cm) 0.8 Surrounding Tissue [place] Primary Dressing Absorbant Pad Secondary Dressing Gauze Roll/Wrap Comment followed by dermatology- REMAINS TRUE Right Anterior Lower Leg Wound Assessment Shift Assessment Wound Type Skin Tear Wound Stage Non Pressure Wound Drainage Amount None Length (cm) (cm) 0.5 Width (cm) (cm) 1 Wound Bed Greatest Portion Red (Granulation) Primary Dressing Absorbant Pad Secondary Dressing Gauze Roll/Wrap Comment DRESSING INTACT Bilateral Lower Extremities Wound Assessment Shift Assessment Wound Type Multiple Bruises Wound Stage Non Pressure Wound Drainage Amount None General Appearance Open to air,Clean/Dry Comment multiple bruising to BLE- REMAINS TRUE Right Foot Wound Assessment Shift Assessment Wound Type Healing Wound Wound Stage Non Pressure Wound Drainage Amount None General Appearance Well Approximated Length (cm) (cm) 0.8 Width (cm) (cm) 1 Surrounding Tissue [place] Primary Dressing Mepilex Lite Comment DRESSINGS INTACT Left Foot Wound Assessment Shift Assessment Wound Type Healing wound Wound Stage Non Pressure Wound Dressing Status Drainage circled Drainage Amount Minimal Drainage Description Serosanguineous General Appearance Well Approximated Length (cm) (cm) 1 Width (cm) (cm) 1 Surrounding Tissue Bright Red,Edematous Primary Dressing Mepilex Lite Comment DRESSINGS INTACT Wound Photo Photo Taken No Eye Exam: PERRL Ears, Nose, Throat Exam: normal ENT inspection Neck Exam: normal inspection Respiratory Exam: normal breath sounds, lungs clear Cardiovascular Exam: regular rate/rhythm, normal heart sounds Gastrointestinal/Abdomen Exam: soft, normal bowel sounds Extremity Exam: inflammation (BLE with compression dressiongs), other (open areas to anterior aspect of bilateral feet) Back Exam: normal inspection Pelvic Exam: deferred Rectal Exam: deferred Objective Data Vital Signs: Vital Signs - 24 hr Temp Pulse Resp BP Pulse Ox 01/18/24 00:00 97.4 F 73 16 126/74 97 01/17/24 19:53 98.7 F 78 16 139/69 94 L 01/17/24 18:33 75 18 95 01/17/24 16:00 97.2 F 83 17 183/95 98 01/17/24 12:00 97.1 F 75 16 140/70 93 L 01/17/24 07:03 72 18 99 01/17/24 07:00 97.1 F 65 16 142/66 99 Pain Assessment - Last Documented Pain Intensity 1 Intake and Output: Intake & Output 01/15/24 01/16/24 01/17/24 01/18/24 11:59 11:59 11:59 11:59 Intake Total 1424 2130 1680 360 Output Total 2440 8749 803 2771 Balance -1016 780 980 -1840 Lab Results: Lab Results-Last 24 Hours 01/17/24 01/17/24 Range/Units 04:15 04:15 WBC 6.7 (3.98-10.04) x10^3/uL RBC 3.40 L (3.93-5.22) x10^6/uL Hgb 10.5 L (11.2-15.7) g/dL Hct 32.7 L (34.1-44.9) % MCV 96.2 H (79.4-94.8) fL MCH 30.9 (25.6-32.2) pg MCHC 32.1 L (32.2-35.5) g/dL RDW 13.9 (11.7-14.4) % Plt Count 219 (182-369) x10^3/uL MPV 11.4 (9.4-12.3) fL Sodium 139 (135-145) mmol/L Potassium 4.1 (3.5-5.1) mmol/L Chloride 106 (98-107) mmol/L Carbon Dioxide 28 (22-30) mmol/L Anion Gap 8.8 (5-15) MEQ/L BUN 34 H (7-17) mg/dL Creatinine 1.33 H (0.52-1.04) mg/dL Estimated GFR 38.7 ML/MIN Glucose 109 H (74-106) mg/dL Calcium 9.6 (8.4-10.2) mg/dL Total Bilirubin 0.40 (0.2-1.3) mg/dL AST 38 H (14-36) U/L ALT 26 (0-35) U/L Alkaline Phosphatase 51 (38-126) U/L Serum Total Protein 5.9 L (6.3-8.2) g/dL Albumin 3.3 L (3.5-5.0) g/dL Radiology Exams: Radiology Procedures Category Date Time Status LOWER EXTREMITY WO CONTRAST [CT] Urgent Exams 01/17/24 14:34 Completed LOWER EXTREMITY WO CONTRAST [CT] Urgent Exams 01/17/24 14:35 Completed Multi-Disciplinary Progress Notes: Multi-Disciplinary Progress Notes 01/17/24 17:36 Physical Therapy Note by Dex(L#[id number])Layne ATTEMPTED P.T. RX X 2 THIS AFTERNOON. PT. WAS TAKEN FOR CT ON ONE ATTEMPT AND WAS RECEIVING COMPRESSION WRAPS ON LLS PER PODIATRY STAFF ON 2ND ATTEMPT. WILL ATTEMPT TOMORROW. Initialized on 01/17/24 17:36 - END OF NOTE 01/17/24 12:54 Case Management Note by Marisol Rajan JUST SPOKE WITH RODNEY AT [facility], REPORTS THAT AUTH IS STILL PENDING INSURANCE APPROVAL Initialized on 01/17/24 12:54 - END OF NOTE 01/17/24 08:00 (created 01/17/24 12:55) Case Management Note by Marisol Rajan CALL TO [facility] TO CHECK ON STATUS OF AUTH - RODNEY REPORTS THAT IT IS STILL PENDING Initialized on 01/17/24 12:55 - END OF NOTE Assessment/Plan (1) UTI (urinary tract infection) Current Visit: Yes Status: Acute Assessment & Plan: - Ecoli on culture - continue cefuroxime Code(s): N39.0 - URINARY TRACT INFECTION, SITE NOT SPECIFIED (2) Acute on chronic renal failure Current Visit: Yes Status: Acute Assessment & Plan: -baseline around 1.2-1.3 - at baseline 01/17: -torsemide resumed, continue to monitor kidney function - hold HCTZ Code(s): N17.9 - ACUTE KIDNEY FAILURE, UNSPECIFIED; N18.9 - CHRONIC KIDNEY DISEASE, UNSPECIFIED (3) Cellulitis of both lower extremities Current Visit: Yes Status: Acute Assessment & Plan: -- Venous duplex of BLLE negative for DVT - Continue cefuroxime - continue to elevate BLLE -CT of BLE w/o contrast today - podiatry consult 01/17: -Right lower ext CT showing diffuse cutaneous soft tissue swelling/edema. Subcutaneous fluid collection medial foot. Rule out abscess. -Left lower ext CT showing diffuse cutaneous soft tissue swelling/edema. -Podiatry read- most likely edema- continue current abx with compression dressings Code(s): L03.115 - CELLULITIS OF RIGHT LOWER LIMB; L03.116 - CELLULITIS OF LEFT LOWER LIMB (4) Contusion of left leg Current Visit: Yes Status: Acute Assessment & Plan: - Secondary to dog scratches -pics in patients chart -Wound cultures negative - Continue wound care PRN - advised to cover BLLE at home to prevent dog from injuring her skin. - appear to be healing -CT to BLE - podiatry consult - appreciate recs 01/17: -see cellulitis Code(s): S80.12XA - CONTUSION OF LEFT LOWER LEG, INITIAL ENCOUNTER (5) HTN (hypertension) Current Visit: Yes Status: Acute Assessment & Plan: - BP stable with meds held for MORAIMA - Continue Coreg, amlodipine - IV fluids stopped 01/14 - Clonidine 0.1 added PRN for HTN - HTN may be r/t anxiety Code(s): I10 - ESSENTIAL (PRIMARY) HYPERTENSION (6) Hypothyroidism Current Visit: Yes Status: Acute Assessment & Plan: -Continue synthroid - TSH WNL- no adjustments needed Code(s): E03.9 - HYPOTHYROIDISM, UNSPECIFIED (7) Multiple falls Current Visit: Yes Status: Acute Assessment & Plan: - PT eval with recommendations for rehab stay to address weakness an gait instability - patient initially wanting C but has now agreed to rehab placment -rehab pending insurance approval Code(s): R29.6 - REPEATED FALLS (8) Oral pain Current Visit: Yes Status: Acute Assessment & Plan: - from dental appliance- will need OP f/u with dentist - orajel added to use prior to meals so pt can eat - Dixie devi PRN - peridex stopped Code(s): K13.79 - OTHER LESIONS OF ORAL MUCOSA (9) COPD (chronic obstructive pulmonary disease) Current Visit: Yes Status: Chronic Assessment & Plan: -Does not appear to be in exacerbation -RT following, supplemental oxygen with goal spo2 88-92% -Nebs prn - bronchodilator - baseline 4LNC at night - RA 98% during day when awake. (10) Depression Current Visit: Yes Status: Chronic Assessment & Plan: - Pristiq held d/t kidney function - Discussed with pt that the dose of Pristiq she is on is too high to take daily due to her CKD. This needs to be discussed with PCP OP. Consider changing to every other day if going to stay on this medication. Code(s): F32.A - DEPRESSION, UNSPECIFIED (11) Nausea Current Visit: Yes Status: Resolved Assessment & Plan: - resolved - Zofran IV PRN Code(s): R11.0 - NAUSEA Code(s): N39.0 - URINARY TRACT INFECTION, SITE NOT SPECIFIED (2) Acute on chronic renal failure Current Visit: Yes Status: Acute Code(s): N17.9 - ACUTE KIDNEY FAILURE, UNSPECIFIED; N18.9 - CHRONIC KIDNEY DISEASE, UNSPECIFIED (3) Cellulitis of both lower extremities Current Visit: Yes Status: Acute Code(s): L03.115 - CELLULITIS OF RIGHT LOWER LIMB; L03.116 - CELLULITIS OF LEFT LOWER LIMB (4) Contusion of left leg Current Visit: Yes Status: Acute Code(s): S80.12XA - CONTUSION OF LEFT LOWER LEG, INITIAL ENCOUNTER (5) HTN (hypertension) Current Visit: Yes Status: Acute Code(s): I10 - ESSENTIAL (PRIMARY) HYPERTENSION (6) Hypothyroidism Current Visit: Yes Status: Acute Code(s): E03.9 - HYPOTHYROIDISM, UNSPECIFIED (7) Multiple falls Current Visit: Yes Status: Acute Code(s): R29.6 - REPEATED FALLS (8) Oral pain Current Visit: Yes Status: Acute Code(s): K13.79 - OTHER LESIONS OF ORAL MUCOSA (9) COPD (chronic obstructive pulmonary disease) Current Visit: Yes Status: Chronic (10) Depression Current Visit: Yes Status: Chronic Code(s): F32.A - DEPRESSION, UNSPECIFIED (11) Nausea Current Visit: Yes Status: Resolved Code(s): R11.0 - NAUSEA
[2024-01-18 05:20] LABS: ALBUMIN 3.4 g/dL (3.5-5.0); ANION GAP 9.3 MEQ/L (5-15); BILIRUBIN,TOTAL 0.3 mg/dL (0.2-1.3); Calcium 9.2 mg/dL (8.4-10.2); Creatinine 1 1.59 mg/dL (0.52-1.04); EST GLOMERULAR FILTRATION RATE 31.3 ML/MIN; Potassium 4.7 mmol/L (3.5-5.1)
[2024-01-18] MEDS: PROVENTIL 2.5 MG/3 ML NEB IH PRN (09:51)
[2024-01-18] MEDS ORDERED: NON-FORMULARY ITEM (Torsemide [Torsemide] 10 MG Tablet) PO SCH (10:00)
[2024-01-18] MEDS: Zestril 20 MG PO SCH (10:27)
--- NOTE | 2024-01-18 11:48 | XRAY ---
Indication: Cough. Pneumonia. Comparison: None PA/lateral chest is clear with COPD. Heart not enlarged with arteriosclerotic aorta. Bony thorax intact with osteopenia and mild degenerative changes. Impression: Nonacute chest with chronic features.
--- NOTE | 2024-01-19 05:37 | PCM.DS ---
Discharge Summary Date of Admission: 01/12/24 19:30 Date of Discharge: 01/19/24 Admitting Physician: YVETTE JOSEPH MD Consults: Consults on Case 01/17/24 14:36 Consult Podiatry ROUTINE Primary Care Provider: MASSIEL RODRÍGUEZ MD Allergies Allergies amoxicillin Allergy (Unknown, Verified 03/27/23 21:48) Nausea clindamycin Allergy (Unknown, Verified 03/27/23 21:48) nitrofurantoin Allergy (Unknown, Verified 03/27/23 21:48) Nausea Sulfa (Sulfonamide Antibiotics) Allergy (Verified 01/12/24 11:17) vancomycin Allergy (Verified 01/12/24 16:51) IV contrast dye Allergy (Unknown, Uncoded 03/27/23 21:48) Hospital Summary - Hospital Course Hospital Course: is a 88 year old female with PMHX of cataracts, PVD, COPD, hypothyroidism, COPD, OA, CKD, depression, and multiple medication allergies admitted 01/12/24 admitted for frequent falls, UTI, MORAIMA, and cellulitis of bilateral lower extremities. Patient reports experiencing multiple falls at home -most recently the day prior to. She also endorses a week history of pain, redness, and swelling to her right foot secondary to her dog jumping on her - she had previously received oral doxycycline for this with no resolution. Wound culture findings are negative. On arrival to ED, lab findings were consistent with MORAIMA at 2.33 which has now improved to patients baseline of 1.2. Additional findings of Ecoli on culture with initial treatment with ceftriaxone - now on cefuoxime. There is concern for cellulitis of her BLE with swelling and redness, multiples open lesion areas due to dog which now appear to be healing with abx and wound care. Patient is requesting rehab on discharge with insurance pending approval- IPPT until discharge. 01/17/24: Met with patient bedside. Endorses increased edema to BLE overnight. Concerned about non-healing wounds to the anterior aspect of bilateral feet following dog scratches. Will obtain CT of BLE and consult podiatry- appreciate recs. Plan for rehab on discharge pending approval. Continue ceftin as patient has multiple allergies, wound culture negative. 01/17: No overnight events noted. Discussed CT of BLE with patient- podiatry does not think this is truly an abscess per his read, most likely soft tissue edema. BLE compression dressings. Will continue Ceftin for now. Patient does endorse a cough this morning. Lung sounds clear on auscultation. Will obtain CXR. Continue to hold HCTZ with elevated creat. Placement pending. May need [facility] if not approved. 01/18: [facility] set up for patient. Labs and vitals stable. Patient advised to continue to hold HCTZ- follow up with nephrology OP. Dressing changes per podiatry/HHC. Patient to continue ceftin - sent to pharmacy. All questions and concerns addressed. Patient requesting discharge to home with [facility]> Discharge Note New Diagnosis: UTI, MORAIMA, and cellulitis of bilateral lower extremities New Medications: Hold HCTZ/dose changed of pristiq - Chlorhexidine Gluconate 15 ml MM BID 10 Days #473 ml Cefuroxime Axetil 500 mg [Ceftin 500 mg] 500 mg PO BID 7 Days #14 tablet Follow Up: nephrology/podiatry/ pcp Latest Assessment & Plan (1) UTI (urinary tract infection) Current Visit: Yes Status: Acute Assessment & Plan: - Ecoli on culture - continue cefuroxime Code(s): N39.0 - URINARY TRACT INFECTION, SITE NOT SPECIFIED (2) Acute on chronic renal failure Current Visit: Yes Status: Acute Assessment & Plan: -baseline around 1.2-1.3 - at baseline 01/17: -torsemide resumed, continue to monitor kidney function - hold HCTZ Code(s): N17.9 - ACUTE KIDNEY FAILURE, UNSPECIFIED; N18.9 - CHRONIC KIDNEY DISEASE, UNSPECIFIED (3) Cellulitis of both lower extremities Current Visit: Yes Status: Acute Assessment & Plan: -- Venous duplex of BLLE negative for DVT - Continue cefuroxime - continue to elevate BLLE -CT of BLE w/o contrast today - podiatry consult 01/17: -Right lower ext CT showing diffuse cutaneous soft tissue swelling/edema. Subcutaneous fluid collection medial foot. Rule out abscess. -Left lower ext CT showing diffuse cutaneous soft tissue swelling/edema. -Podiatry read- most likely edema- continue current abx with compression dressings Code(s): L03.115 - CELLULITIS OF RIGHT LOWER LIMB; L03.116 - CELLULITIS OF LEFT LOWER LIMB (4) Contusion of left leg Current Visit: Yes Status: Acute Assessment & Plan: - Secondary to dog scratches -pics in patients chart -Wound cultures negative - Continue wound care PRN - advised to cover BLLE at home to prevent dog from injuring her skin. - appear to be healing -CT to BLE - podiatry consult - appreciate recs 01/17: -see cellulitis Code(s): S80.12XA - CONTUSION OF LEFT LOWER LEG, INITIAL ENCOUNTER (5) HTN (hypertension) Current Visit: Yes Status: Acute Assessment & Plan: - BP stable with meds held for MORAIMA - Continue Coreg, amlodipine - IV fluids stopped 01/14 - Clonidine 0.1 added PRN for HTN - HTN may be r/t anxiety Code(s): I10 - ESSENTIAL (PRIMARY) HYPERTENSION (6) Hypothyroidism Current Visit: Yes Status: Acute Assessment & Plan: -Continue synthroid - TSH WNL- no adjustments needed Code(s): E03.9 - HYPOTHYROIDISM, UNSPECIFIED (7) Multiple falls Current Visit: Yes Status: Acute Assessment & Plan: - PT eval with recommendations for rehab stay to address weakness an gait instability - patient initially wanting C but has now agreed to rehab placment -rehab pending insurance approval Code(s): R29.6 - REPEATED FALLS (8) Oral pain Current Visit: Yes Status: Acute Assessment & Plan: - from dental appliance- will need OP f/u with dentist - orajel added to use prior to meals so pt can eat - Dixie shandra PRN - peridex stopped Code(s): K13.79 - OTHER LESIONS OF ORAL MUCOSA (9) COPD (chronic obstructive pulmonary disease) Current Visit: Yes Status: Chronic Assessment & Plan: -Does not appear to be in exacerbation -RT following, supplemental oxygen with goal spo2 88-92% -Nebs prn - bronchodilator - baseline 4LNC at night - RA 98% during day when awake. (10) Depression Current Visit: Yes Status: Chronic Assessment & Plan: - Pristiq held d/t kidney function - Discussed with pt that the dose of Pristiq she is on is too high to take daily due to her CKD. This needs to be discussed with PCP OP. Consider changing to every other day if going to stay on this medication. Code(s): F32.A - DEPRESSION, UNSPECIFIED (11) Nausea Current Visit: Yes Status: Resolved Assessment & Plan: - resolved - Zofran IV PRN I spent 35 minutes [id number] with the patient on the day of discharge p erforming discharge exam, discussing hospital stay and discharge instructions with patient and caregivers, preparation of discharge records, prescriptions & referral forms and addressing any questions/concerns the patient had as documented above. - Vitals & Intake/Output Vital Signs: Vital Signs Temperature 97.9 F 01/19/24 00:00 Pulse Rate 76 01/19/24 00:00 Respiratory Rate 17 01/19/24 04:00 Blood Pressure 131/60 01/19/24 00:00 O2 Sat by Pulse Oximetry 97 01/19/24 00:00 Intake & Output: Intake & Output 01/16/24 01/17/24 01/18/24 01/19/24 11:59 11:59 11:59 11:59 Intake Total 2130 1680 750 910 Output Total 0238 998 5398 350 Balance 780 980 -1450 560 - Lab Result Diagrams: 01/18/24 04:37 01/18/24 04:37 Micro Results-Entire Visit: Microbiology 01/13/24 23:25 Wound Culture - Final Foot - Left Top ORGANISMS ISOLATED ARE CONSISTENT WITH NORMAL SKIN MARCI LIGHT GROWTH, NO PREDOMINANT ORGANISM 01/12/24 12:11 Blood Culture - Final Blood 01/12/24 12:00 Blood Culture - Final Blood 01/12/24 11:45 Urine Culture - Final Clean Catch Midstream Escherichia Coli - Radiology Exams Ordered Rad Exams-Entire Visit: Radiology Procedures Category Date Time Status CHEST 2 VIEWS (PA AND LAT) Routine Exams 01/18/24 10:45 Completed LOWER EXTREMITY WO CONTRAST [CT] Urgent Exams 01/17/24 14:34 Completed LOWER EXTREMITY WO CONTRAST [CT] Urgent Exams 01/17/24 14:35 Completed - Procedures and Test Procedures and Tests throughout Hospitalization: Therapy Orders & Screens 01/12/24 20:05 PT Eval & Treat (MD Order) ONCE Reason for Eval:: leg cellulitis. Assess ambulatory assistance requirement. Recent fall. Diagnosis: Cellulitis of legs & feet; UTI; Nausea; Fall; Contusion of upper back OT Eval and Treat (MD Order) ONCE Comment: Physician Instructions: Reason For Exam: Evaluate: Yes Treat: Yes Diagnosis: Cellulitis of legs & feet; UTI; Nausea; Fall; Contusion of upper back 01/12/24 21:07 OT Screen per Nursing Assess ONCE Comment: Protocol Order Physician Instructions: Greater than 3 points order OT Admission Screening Reason For Exam: Triggered on Admission Diagnosis: Cellulitis of legs & feet; UTI; Nausea; Fall; Contusion of upper back Open Wound/Cellutlitis/Pressure Ulcers: Yes Acute Fx/ORIF/Change in wt bearing status: No Severe MUSCULOSKELETAL pain: No ADL Dysfunction: No Acute CVA w/Hemiparesis/Hemiplegia: No Decreased Functional Mobility/Strength: Yes Sprain/Strain: No Acute Post-op Mobility Dysfunction: No Total Points: 6 PT Screen per Nursing Assess ONCE Comment: Protocol Order Physician Instructions: Greater than 3 points order PT Admission Screenin Reason For Exam: Triggered on Admission Diagnosis: Cellulitis of legs & feet; UTI; Nausea; Fall; Contusion of upper back Open Wound/Cellutlitis/Pressure Ulcers: Yes Acute Fx/ORIF/Change in wt bearing status: No Severe MUSCULOSKELETAL pain: No ADL Dysfunction: No Acute CVA w/Hemiparesis/Hemiplegia: No Decreased Functional Mobility/Strength: Yes Sprain/Strain: No Acute Post-op Mobility Dysfunction: No Total Points: 6 01/13/24 00:58 Oxygen Nasal Cannula 4 lpm Comment: Diagnosis: Cellulitis of legs & feet; UTI; Nausea; Fall; Contusion of upper back Respiratory Therapy Assessment DAILY Comment: Diagnosis: Cellulitis of legs & feet; UTI; Nausea; Fall; Contusion of upper back 01/13/24 01:00 Respiratory MDI BID Comment: Diagnosis: Cellulitis of legs & feet; UTI; Nausea; Fall; Contusion of upper back Discharge Exam General Appearance: no apparent distress Neurologic Exam: alert, oriented x 3, cooperative Eye Exam: PERRL Ears, Nose, Throat Exam: normal ENT inspection Neck Exam: normal inspection Respiratory Exam: normal breath sounds, lungs clear Cardiovascular Exam: regular rate/rhythm, normal heart sounds Gastrointestinal/Abdomen Exam: soft, normal bowel sounds Pelvic Exam: deferred Rectal Exam: deferred Back Exam: normal inspection Extremity Exam: other (BLE wrapped in compression dressings) Skin Exam: normal color, other (multiple abrasions to BLE in various stages of healing) Wound Assessment: Skin/Wound Assessment Wound/Incision Assessment Start: 01/12/24 19:53 Text: Status: Active Freq: Q6H Protocol: Document 01/19/24 01:00 MP (Rec: 01/19/24 02:45 MP [id number]) Wound/Incision Assessment Left Lower Lateral Calf Wound Assessment Shift Assessment Wound Type Skin Tear Wound Stage Non Pressure Wound Dressing Status Dry & Intact Drainage Amount Minimal Length (cm) (cm) 2 Width (cm) (cm) 2 Secondary Dressing Gauze Roll/Wrap Comment wrapped per flory-remains true Right Upper Arm Wound Assessment Shift Assessment Wound Type Skin Tear Wound Stage Non Pressure Wound Dressing Status Reinforced Drainage Amount None Drainage Description Serosanguineous General Appearance Draining Length (cm) (cm) 1.3 Width (cm) (cm) 0.3 Wound Bed Greatest Portion Red (Granulation) Surrounding Tissue Dark Red,Purple Topical Solution/Irrigant Saline Irrigant Primary Dressing Steri Strips Secondary Dressing Absorbant Pad Comment steri strips in place- remains true Left Anterior Lower Leg Wound Assessment Shift Assessment Wound Type scab Wound Stage Non Pressure Wound Dressing Status Dry & Intact Drainage Amount None Drainage Odor None/Absent Length (cm) (cm) 0.5 Width (cm) (cm) 0.8 Surrounding Tissue [place] Primary Dressing Absorbant Pad Secondary Dressing Gauze Roll/Wrap Comment followed by dermatology- REMAINS TRUE Right Anterior Lower Leg Wound Assessment Shift Assessment Wound Type Skin Tear Wound Stage Non Pressure Wound Drainage Amount None Length (cm) (cm) 0.5 Width (cm) (cm) 1 Wound Bed Greatest Portion Red (Granulation) Primary Dressing Absorbant Pad Secondary Dressing Gauze Roll/Wrap Comment danyelle boots in place per podiatry- remains true Bilateral Lower Extremities Wound Assessment Shift Assessment Wound Type Multiple Bruises Wound Stage Non Pressure Wound Drainage Amount None General Appearance Open to air,Clean/Dry Comment danyelle boots in place- remains true Right Foot Wound Assessment Shift Assessment Wound Type Healing Wound Wound Stage Non Pressure Wound Drainage Amount None General Appearance Well Approximated Length (cm) (cm) 0.8 Width (cm) (cm) 1 Surrounding Tissue [place] Primary Dressing Mepilex Lite Comment danyelle boots in place- remainstrue Left Foot Wound Assessment Shift Assessment Wound Type Healing wound Wound Stage Non Pressure Wound Dressing Status Drainage circled Drainage Amount Minimal Drainage Description Serosanguineous General Appearance Well Approximated Length (cm) (cm) 1 Width (cm) (cm) 1 Surrounding Tissue Bright Red,Edematous Primary Dressing Mepilex Lite Comment danyelle boots in place- reamains true Wound Photo Photo Taken No Final Diagnosis/Problem List - Final Discharge Diagnosis/Problem (1) UTI (urinary tract infection) Current Visit: Yes Status: Acute Code(s): N39.0 - URINARY TRACT INFECTION, SITE NOT SPECIFIED (2) Acute on chronic renal failure Current Visit: Yes Status: Acute Code(s): N17.9 - ACUTE KIDNEY FAILURE, UNSPECIFIED; N18.9 - CHRONIC KIDNEY DISEASE, UNSPECIFIED (3) Cellulitis of both lower extremities Current Visit: Yes Status: Acute Code(s): L03.115 - CELLULITIS OF RIGHT LOWER LIMB; L03.116 - CELLULITIS OF LEFT LOWER LIMB (4) Contusion of left leg Current Visit: Yes Status: Acute Code(s): S80.12XA - CONTUSION OF LEFT LOWER LEG, INITIAL ENCOUNTER (5) HTN (hypertension) Current Visit: Yes Status: Acute Code(s): I10 - ESSENTIAL (PRIMARY) HYPERTENSION (6) Hypothyroidism Current Visit: Yes Status: Acute Code(s): E03.9 - HYPOTHYROIDISM, UNSPECIFIED (7) Multiple falls Current Visit: Yes Status: Acute Code(s): R29.6 - REPEATED FALLS (8) Oral pain Current Visit: Yes Status: Acute Code(s): K13.79 - OTHER LESIONS OF ORAL MUCOSA (9) COPD (chronic obstructive pulmonary disease) Current Visit: Yes Status: Chronic (10) Depression Current Visit: Yes Status: Chronic Code(s): F32.A - DEPRESSION, UNSPECIFIED (11) Nausea Current Visit: Yes Status: Resolved Code(s): R11.0 - NAUSEA - Discharge Discharge Date: 01/19/24 Disposition: Home, Self-Care Condition: Stable Prescriptions: New Chlorhexidine Gluconate 15 ml MM BID 10 Days #473 ml Cefuroxime Axetil 500 mg [Ceftin 500 mg] 500 mg PO BID 7 Days #14 tablet Continue Pyridoxine HCl 100 mg [Vitamin B-6 (Pyridoxine) 100 MG] 100 mg PO DAILY [place] 3 Polyunsaturated Fatty 1,200 mg PO DAILY Nitroglycerin 0.4 mg Tablet [Nitrostat 0.4 MG Tablet] 0.4 mg SL Q5MIN PRN MR X 3 PRN PRN Reason: Chest Pain Multivitamin with Minerals [Myvitalife] 1 each PO DAILY Tumeric 1,000 mg PO DAILY Levothyroxine Sodium 25 Mcg [Synthroid 25 Mcg] 25 mcg PO DAILY Latanoprost [Xalatan] 1 drop OP EVENING MEAL Lactobacillus Acidophilus [Acidophilus Lactobacilli] 1 each PO DAILY Fluticasone/Umeclidin/Vilanter [Trelegy Ellipta 200-62.5-25] 1 each IH DAILY Ezetimibe 10 mg [Zetia 10 MG] 10 mg PO DAILY Cyanocobalamin (Vitamin B-12) [Vitamin B-12] 1,000 mcg PO DAILY Cholecalciferol (Vitamin D3) [Weekly-D] 1,250 mcg PO WEEKLY Carvedilol 3.125 mg [Coreg 3.125 MG] 3.125 mg PO BID Biotin/Lutein [Biotin Plus 5,000 Mcg Tablet] 1 each PO 3XW Atorvastatin Calcium [Lipitor] 5 mg PO 3XW Ascorbic Acid 500 mg [Vitamin C 500 MG] 500 mg PO DAILY Albuterol Sulfate [Proair Digihaler] 2 puffs IH Q6H PRN PRN PRN Reason: Shortness Of Breath/Wheezing Torsemide 10 mg PO DAILY Lisinopril/Hydrochlorothiazide [Lisinopril-Hctz 20-25 mg Tab] 1 tablet PO DAILY Amlodipine Besylate 2.5 mg PO HS Aspirin EC 81 mg [Ecotrin 81 mg] 1 tablet PO 3XW Changed Desvenlafaxine Succinate [Pristiq] 25 mg PO CLARIFY #0 Desvenlafaxine Succinate [Pristiq] 50 mg PO CLARIFY #0 Instructions: Cellulitis (Skin Infection), Adult ED, How to use a walker Additional Instructions: Pristiq dose changed to every other day due to kidney function. Please discuss this with PCP as dose may need to be reduced outpatient if needed daily. [facility] WILL CALL YOU TO ARRANGE YOUR FIRST VISIT. YOU MAY REACH THEM AT [phone] FOR ANY QUESTION/CONCERNS. YOU NEED TO USE YOUR WALKER AT ALL TIMES WHEN YOU ARE WALKING. Follow up with: FLORY RAMIREZ DPM [ACTIVE STAFF] - 01/26/24 10:30 am MASSIEL RODRÍGUEZ MD [Primary Care Provider] - 01/24/24 8:00 am
--- NOTE | 2024-01-19 07:32 | PCM.CONS ---
Podiatry HPI - Consult Date of Consultation Date: 01/17/24 Reason for Consult: Bilateral foot wounds Consulting Provider: FLORY RAMIREZ DPM - [facility] History of Present Illness: Pt states her dog injured the top of her left foot 4weeks ago and her right foot 1 week ago with redness, tenderness and swelling the same day of the injuries. Pt states she fell yesterday in the kitchen injuring her left upper back, left leg and right hand; denies LOC and states she "just falls". Pt denies abdominal pain, vomiting, diarrhea; admits to nausea for the past 5 days. Medications & Allergies Home Medications: Home Medication List Albuterol Sulfate [Proair Digihaler] 2 puffs IH Q6H PRN PRN 03/27/23 [History Confirmed 03/27/23] Ascorbic Acid 500 mg [Vitamin C 500 MG] 500 mg PO DAILY 03/27/23 [History Confirmed 01/12/24] Atorvastatin Calcium [Lipitor] 5 mg PO 3XW 03/27/23 [History Confirmed 01/12/24] Biotin/Lutein [Biotin Plus 5,000 Mcg Tablet] 1 each PO 3XW 03/27/23 [History Co nfirmed 01/12/24] Carvedilol 3.125 mg [Coreg 3.125 MG] 3.125 mg PO BID 03/27/23 [History Confirmed 01/12/24] Cholecalciferol (Vitamin D3) [Weekly-D] 1,250 mcg PO WEEKLY 03/27/23 [History Confirmed 01/12/24] Cyanocobalamin (Vitamin B-12) [Vitamin B-12] 1,000 mcg PO DAILY 03/27/23 [History Confirmed 01/12/24] Ezetimibe 10 mg [Zetia 10 MG] 10 mg PO DAILY 03/27/23 [History Confirmed 01/12/24] Fluticasone/Umeclidin/Vilanter [Trelegy Ellipta 200-62.5-25] 1 each IH DAILY 03/27/23 [History Confirmed 01/12/24] Lactobacillus Acidophilus [Acidophilus Lactobacilli] 1 each PO DAILY 03/27/23 [History Confirmed 01/12/24] Latanoprost [Xalatan] 1 drop OP EVENING MEAL 03/27/23 [History Confirmed 01/12/24] Levothyroxine Sodium 25 Mcg [Synthroid 25 Mcg] 25 mcg PO DAILY 03/27/23 [History Confirmed 01/12/24] Multivitamin with Minerals [Myvitalife] 1 each PO DAILY 03/27/23 [History Confirmed 01/12/24] Nitroglycerin 0.4 mg Tablet [Nitrostat 0.4 MG Tablet] 0.4 mg SL Q5MIN PRN MR X 3 PRN 03/27/23 [History Confirmed 01/12/24] [place] 3 Polyunsaturated Fatty 1,200 mg PO DAILY 03/27/23 [History Confirmed 01/12/24] Pyridoxine HCl 100 mg [Vitamin B-6 (Pyridoxine) 100 MG] 100 mg PO DAILY 03/27/23 [History Confirmed 01/12/24] Torsemide 10 mg PO DAILY 03/27/23 [History Confirmed 01/12/24] Tumeric 1,000 mg PO DAILY 03/27/23 [History Confirmed 01/12/24] Amlodipine Besylate 2.5 mg PO HS 01/12/24 [History Confirmed 01/12/24] Aspirin EC 81 mg [Ecotrin 81 mg] 1 tablet PO 3XW 01/12/24 [History Confirmed 01/12/24] Lisinopril/Hydrochlorothiazide [Lisinopril-Hctz 20-25 mg Tab] 1 tablet PO DAILY 01/12/24 [History Confirmed 01/12/24] Cefuroxime Axetil 500 mg [Ceftin 500 mg] 500 mg PO BID 7 Days #14 tablet 01/14/24 [Rx] Chlorhexidine Gluconate 15 ml MM BID 10 Days #473 ml 01/14/24 [Rx] Desvenlafaxine Succinate [Pristiq] 25 mg PO CLARIFY #0 01/14/24 [Rx Confirmed 01/12/24] Desvenlafaxine Succinate [Pristiq] 50 mg PO CLARIFY #0 01/14/24 [Rx Confirmed 01/12/24] Allergies/Adverse Reactions: Allergies Allergy/AdvReac Type Severity Reaction Status Date / Time amoxicillin Allergy Unknown Nausea Verified 03/27/23 21:48 clindamycin Allergy Unknown Verified 03/27/23 21:48 nitrofurantoin Allergy Unknown Nausea Verified 03/27/23 21:48 Sulfa (Sulfonamide Allergy Verified 01/12/24 11:17 Antibiotics) vancomycin Allergy Verified 01/12/24 16:51 IV contrast dye Allergy Unknown Uncoded 03/27/23 21:48 - Past Medical History Past Medical History: Yes Neurological History: No Pertinent History ENT History: Cataracts Cardiac History: Peripheral Vascular Disease Respiratory History: COPD Endocrine Medical History: Hypothyroidism Musculoskelatal History: Osteoarthritis, Osteoporosis GI Medical History: No Pertinent History History: Renal Disease Pyscho-Social History: Depression Reproductive Disorders: Other Comment: Bilateral hip replacement, stent LLE - Past Surgical History Past Surgical History: Yes Neuro Surgical History: No Pertinent History Cardiac History: Vascular Surgery Respiratory Surgery: No Pertinent History GI Surgical History: No Pertinent History Genitourinary Surgical Hx: No Pertinent History Musculskeletal Surgical Hx: Joint Replacement Female Surgical History: Hysterectomy Other Surgical History: bladder tuck, bilateral hip replacement, stent LLE - Social History Smoking Status: Former smoker Exposure to second hand smoke: No Alcohol: None Drug Use: none - Social Determinants of Health Will the patient participate in the screening: Yes Do you worry about a steady place to live?: No Do you have any problems with any of the following?: No known problems In the past 12 months,have you had to go without utilities?: No Have you or anyone in your house had to go without enough: No Transportation Issues: No Has anyone in your support network made you feel unsafe?: No Does the patient want assistance with any of the above?: No Physical Exam - Narrative Narrative Physical Exam: Podiatry Physical Exam Results - Labs Lab/Micro Results: Microbiology 01/17/24 16:57 Wound Culture - Preliminary Foot - Right Dorsal NO GROWTH TO DATE 01/17/24 16:57 Wound Culture - Preliminary Foot - Left Dorsal NO GROWTH TO DATE 01/13/24 23:25 Wound Culture - Final Foot - Left Top ORGANISMS ISOLATED ARE CONSISTENT WITH NORMAL SKIN MARCI LIGHT GROWTH, NO PREDOMINANT ORGANISM 01/12/24 12:11 Blood Culture - Final Blood 01/12/24 12:00 Blood Culture - Final Blood 01/12/24 11:45 Urine Culture - Final Clean Catch Midstream Escherichia Coli - Radiology Impressions Radiology Exams & Impressions: Radiology Procedures Category Date Time Status CHEST 2 VIEWS (PA AND LAT) Routine Exams 01/18/24 10:45 Completed LOWER EXTREMITY WO CONTRAST [CT] Urgent Exams 01/17/24 14:34 Completed LOWER EXTREMITY WO CONTRAST [CT] Urgent Exams 01/17/24 14:35 Completed Assessment/Plan (1) Venous insufficiency (chronic) (peripheral) Current Visit: Yes Status: Acute Assessment & Plan: Inital patient examination and evaluation Ulcers measuring as follows at this time L lateral leg 2.0 x 2.0 0.1 L foot dorsal 1.1 x 1.0 x 0.2 fibrotic R foot dorsal 0.8x 1.0 No debridement today cultures obtained. Dressings applied to the bilateral lower extremity to the right Aquacel iodine 4 x 4 and Unna boot to the right lower extremity and Unna boot multilayer compression dressing to the left lower extremity Patient has been advised to call with any concerns regarding edema, erythema, drainage, or any other local or constitutional signs of infection. venous insufficiency and swelling likely reason for delayed healing. Will follow thank you for the consult. (2) Cellulitis and abscess of left leg Current Visit: Yes Status: Acute Code(s): L03.116 - CELLULITIS OF LEFT LOWER LIMB; L02.416 - CUTANEOUS ABSCESS OF LEFT LOWER LIMB (3) Cellulitis of both lower extremities Current Visit: Yes Status: Acute Code(s): L03.115 - CELLULITIS OF RIGHT LOWER LIMB; L03.116 - CELLULITIS OF LEFT LOWER LIMB (4) Fall Current Visit: Yes Status: Acute Code(s): W19.XXXA - UNSPECIFIED FALL, INITIAL ENCOUNTER (5) Skin lesion of lower extremity Current Visit: Yes Status: Acute Code(s): L98.9 - DISORDER OF THE SKIN AND SUBCUTANEOUS TISSUE, UNSPECIFIED (6) Skin tear of left lower leg without complication Current Visit: No Status: Acute Code(s): S81.812A - LACERATION WITHOUT FOREIGN BODY, LEFT LOWER LEG, INIT ENCNTR
[2024-01-19 07:34] VITALS: RESP 16
[2024-01-19 16:39] VITALS: BP 140/63; PULSE 73; TEMP 97.7; O2SAT 91
--- NOTE | 2024-01-19 17:36 | PCM.NOTE ---
Date and Time: 01/19/24 1733 Subjective Assessment: in bed ready for d/c Physical Exam - Vascular Peripheral Pulses: Posterior tibialis: 2+, Dorsalis-Pedis: 2+ Capillary Refill Time: < 3 seconds Hair Growth: Symmetrical and Bilateral Edema: Pitting Edema Degree: 2+ Skin: Supple, not atrophic - Narrative Narrative Physical Exam: Podiatry Physical Exam Objective Data Vital Signs: Vital Signs - 24 hr Temp Pulse Resp BP Pulse Ox 01/19/24 16:00 97.7 F 73 16 140/63 91 L 01/19/24 12:00 98.9 F 68 16 126/59 95 01/19/24 08:05 63 16 93 L 01/19/24 07:34 98.6 F 74 16 115/58 92 L 01/19/24 04:00 17 01/19/24 00:00 97.9 F 76 16 131/60 97 01/18/24 19:52 97.4 F 78 17 131/58 99 01/18/24 19:14 89 16 98 Pain Assessment - Last Documented Pain Intensity 0 Intake and Output: Intake & Output 01/17/24 01/18/24 01/19/24 01/20/24 11:59 11:59 11:59 11:59 Intake Total 9760 462 4626 360 Output Total 700 2200 350 Balance 980 -1450 680 360 Radiology Exams: Radiology Procedures Category Date Time Status CHEST 2 VIEWS (PA AND LAT) Routine Exams 01/18/24 10:45 Completed Multi-Disciplinary Progress Notes: Multi-Disciplinary Progress Notes 01/19/24 12:14 Occupational Therapy Note by Antwan(L#[id number]),Layne HERNANDEZ WAS SEEN THIS DATE FOR ADL RETRAINING. SHE PERFORMED SPONGE BATH WHILE STANDING AT SINK. SHE REQ ONLY SBA FOR SAFETY AND SET-UP. OTR DID PLACE CHAIR BEHIND HER SO SHE COULD SIT TO [employer] UNDERPANTS AND PJ PANTS. BLE WERE STILL WRAPPED IN UNABOOT THUS NO BATHING OF LE NEEDED AT THIS TIME. SHE DID DEMO. GOOD INDEPENDENCE WITH DONNING/DOFFING NON-SKID SOCKS TO ADJUST THEM. NO A.E. OR DME NECESSARY AT THIS TIME. SHE REPORTS TO HAVE ALL RECOMMENDATIONS IN PLACE AT HOME. SHE REPORTS SHE PLANS TO BE D/C TO HOME THIS DATE AND WILL RECEIVE [facility]. Initialized on 01/19/24 12:14 - END OF NOTE 01/19/24 10:42 Physical Therapy Note by Brigida Reyes PT. WAS SEEN BY P.T. THIS A.M. STILL AWAITING D/C WITH [facility], POSSIBLY TODAY. REPORTS MILD DISCOMFORT BILATERAL FEET D/T COMPRESSION WRAP APPLIED BY PODIATRY STAFF. PT. ALERT AND ORIENTED AND AGREEABLE TO P.T. SEATED ON SIDE OF BED UPON P.T. ARRIVAL TO ROOM. PT. AMBULATED APPROX 400' W/ RW AND SBA. NO UNSTEADINESS NOTED. O2 SAT DIFFICULT TO OBTAIN D/T POOR PERFUSION DISTALLY. AFTER RES FINALLY ABLE TO GET SAT AND WAS 98% AND 86 HR. PT WAS LEFT SEATED ON SIDE OF BED WITH BEDSIDE TABLE IN FRONT OF HER PER REQUEST. DIETARY STAFF WAS TAKING ORDER AND FLARER WAS NOTIFIED PT WAS REQUESTING BATH. Addendum entered by Brigida Reyes 01/19/24 12:10: RETURNED TO PT'S ROOM FOR SITTING AND STANDING EXERCISES. PT DONNED1# CUFF WEIGHTS FOR COMPLETION OF ALL EXERCISES. SHE COMPLETED SITTING ANKLE PUMPS, LAQ, MARCHES, ADDUCTION SQUEEZES, ABDUCTION LIFTS AND STANDING LUNGES AND MARCHES. PT WAS LEFT SITTING UPRIGHT ON SIDE OF WITH BEDSIDE TABLE IN FRONT OF HER, IN PREPARATION FOR LUNCH. Initialized on 01/19/24 10:42 - END OF NOTE 01/19/24 09:06 Case Management Note by Marisol Rajan REFERRAL SENT TO [facility]. SPOKE WITH JEREMÍAS @ [facility] TO REPORT. Initialized on 01/19/24 09:06 - END OF NOTE 01/19/24 08:47 Case Management Note by Marisol Rajan SPOKE WITH RODNEY AT [facility], THE AUTH FOR REHAB STAY IS STILL PENDING. PT REPORTED YESTERDAY THAT SHE WOULD GO HOME WITH [facility] IF THEY DID NOT HEAR BACK BY TODAY. REQUESTS REFERRAL TO [facility] FOR HOME HEALTHCARE SERVICES. Initialized on 01/19/24 08:47 - END OF NOTE Assessment/Plan (1) Venous insufficiency (chronic) (peripheral) Current Visit: Yes Status: Acute (2) Cellulitis and abscess of left leg Current Visit: Yes Status: Acute Code(s): L03.116 - CELLULITIS OF LEFT LOWER LIMB; L02.416 - CUTANEOUS ABSCESS OF LEFT LOWER LIMB (3) Cellulitis of both lower extremities Current Visit: Yes Status: Acute Code(s): L03.115 - CELLULITIS OF RIGHT LOWER LIMB; L03.116 - CELLULITIS OF LEFT LOWER LIMB (4) Fall Current Visit: Yes Status: Acute Code(s): W19.XXXA - UNSPECIFIED FALL, INITIAL ENCOUNTER (5) Skin lesion of lower extremity Current Visit: Yes Status: Acute Assessment & Plan: Patient examination and evaluation Ulcers measuring following debirdement at this time L lateral leg 1.2 x 1.1x 0.1 L foot dorsal 0.9 x 1.0 x 0.2 fibrotic R foot dorsal 0.3x 0.6 0.1 debridement preformed today at bedside with significant improvement to wounds bilaterally. Dressings applied to the bilateral lower extremity to the right Aquacel iodine 4 x 4 and Unna boot to the right lower extremity and Unna boot multilayer compression dressing to the left lower extremity Patient has been advised to call with any concerns regarding edema, erythema, drainage, or any other local or constitutional signs of infection. venous insufficiency and swelling likely reason for delayed healing. follow up outpatient on discharge. thank you for the consult. Code(s): L98.9 - DISORDER OF THE SKIN AND SUBCUTANEOUS TISSUE, UNSPECIFIED (6) Skin tear of left lower leg without complication Current Visit: No Status: Acute Code(s): S81.812A - LACERATION WITHOUT FOREIGN BODY, LEFT LOWER LEG, INIT ENCNTR
== END 2024-01-19 19:17 | disposition home or self-care (01) ==
LOC: ED 10:57 → MED SURG 19:30
PROVIDERS: ADMIT Internal Medicine; ATTEND Internal Medicine
DX: N39.0 Urinary tract infection, site not specified (principal); N17.9 Acute kidney failure, unspecified; I12.9 Hypertensive chronic kidney disease with stage 1 through stage 4 chronic kidney disease, or unspecified chronic kidney disease; N18.9 Chronic kidney disease, unspecified; L03.115 Cellulitis of right lower limb; L03.116 Cellulitis of left lower limb; L98.9 Disorder of the skin and subcutaneous tissue, unspecified; R29.6 Repeated falls; E03.9 Hypothyroidism, unspecified; F32.A Depression, unspecified; R11.0 Nausea; J44.9 Chronic obstructive pulmonary disease, unspecified; A49.8 Other bacterial infections of unspecified site; S41.111A Laceration without foreign body of right upper arm, initial encounter; S81.812A Laceration without foreign body, left lower leg, initial encounter; R60.0 Localized edema; K13.79 Other lesions of oral mucosa; Z79.899 Other long term (current) drug therapy
CPT/HCPCS: 11042; 29580; 36000; 36415; 70450; 71046; 71250; 73590; 73630; 73700; 74176; 80053; 81001; 82150; 83690; 83735; 84134; 84443; 84484; 85025; 85027; 87040; 87070; 87077; 87086; 87186; 93005; 93306; 93970; 94640; 94760; 96360; 96361; 96365; 96367; 96374; 97110; 97161; 97165; 97530; 99222; 99284; Q3014; 99232; G0378; J0696; J2020; J2405; J7609; A9270-GY; J3370

== ENCOUNTER 2024-04-25 10:38 | Emergency (ER) | payer MEDICARE ==
--- NOTE | 2024-04-25 11:13 | ERPHSYRPT ---
- History of Present Illness Time Seen by Provider: 04/25/24 11:00 Source: patient Exam Limitations: no limitations Physician History: 88-year-old female presents to the emergency department for evaluation of lower leg swelling. Patient states her legs are oozing a clear liquid. Patient did see her primary care provider who started her on antibiotics for possible leg cellulitis. Patient states that using has been continuous and is concerned that the cellulitis has possibly gotten worse. No fever no nausea vomiting. Patient has no systemic manifestations of her complaints. 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 Patient states her legs do get swollen but never to this degree. Patient also reports that her primary care doctor has initiated workup on the leg swelling. Patient had an outpatient echo performed yesterday however the results were not available. Family at bedside. They voiced no other complaints or concerns at this time. Portions of this note were created with voice recognition technology. There may be grammatical, spelling, punctuation or sound alike errors Timing/Duration: yesterday Severity: moderate Modifying Factors: Improves With: nothing Associated Symptoms: denies symptoms Allergies/Adverse Reactions: amoxicillin Allergy (Unknown, Verified 04/25/24 11:02) Nausea clindamycin Allergy (Unknown, Verified 04/25/24 11:02) Vomiting nitrofurantoin Allergy (Unknown, Verified 04/25/24 11:02) Nausea Sulfa (Sulfonamide Antibiotics) Allergy (Verified 04/25/24 11:02) Nausea vancomycin Allergy (Verified 04/25/24 11:02) IV contrast dye Allergy (Unknown, Uncoded 04/25/24 11:02) Home Medications: Albuterol Sulfate [Proair Digihaler] 2 puffs IH Q6H PRN PRN 03/27/23 [History] Ascorbic Acid 500 mg [Vitamin C 500 MG] 500 mg PO DAILY 03/27/23 [History] Atorvastatin Calcium [Lipitor] 5 mg PO 3XW 03/27/23 [History] Carvedilol 3.125 mg [Coreg 3.125 MG] 3.125 mg PO BID 03/27/23 [History] Cholecalciferol (Vitamin D3) [Weekly-D] 1,250 mcg PO WEEKLY 03/27/23 [History] Cyanocobalamin (Vitamin B-12) [Vitamin B-12] 1,000 mcg PO DAILY 03/27/23 [History] Ezetimibe 10 mg [Zetia 10 MG] 10 mg PO DAILY 03/27/23 [History] Fluticasone/Umeclidin/Vilanter [Trelegy Ellipta 200-62.5-25] 1 each IH DAILY 03/27/23 [History] Lactobacillus Acidophilus [Acidophilus Lactobacilli] 1 each PO DAILY 03/27/23 [History] Latanoprost [Xalatan] 1 drop OP EVENING MEAL 03/27/23 [History] Levothyroxine Sodium 25 Mcg [Synthroid 25 Mcg] 25 mcg PO DAILY 03/27/23 [History] Multivitamin with Minerals [Myvitalife] 1 each PO DAILY 03/27/23 [History] Nitroglycerin 0.4 mg Tablet [Nitrostat 0.4 MG Tablet] 0.4 mg SL Q5MIN PRN MR X 3 PRN 03/27/23 [History] [place] 3 Polyunsaturated Fatty 1,200 mg PO DAILY 03/27/23 [History] Pyridoxine HCl 100 mg [Vitamin B-6 (Pyridoxine) 100 MG] 100 mg PO DAILY 03/27/23 [History] Torsemide 10 mg PO DAILY 03/27/23 [History] Amlodipine Besylate 2.5 mg PO DAILY 01/12/24 [History] Aspirin EC 81 mg [Ecotrin 81 mg] 1 tablet PO 3XW 01/12/24 [History] Lisinopril/Hydrochlorothiazide [Lisinopril-Hctz 20-25 mg Tab] 0.5 tablet PO DAILY 01/12/24 [History] Hx Tetanus, Diphtheria Vaccination/Date Given: No Hx Influenza Vaccination/Date Given: Yes Hx Pneumococcal Vaccination/Date Given: No Travel Risk - Emerging Infectious Disease Are you exhibiting symptoms associated with any current EIDs: No - Review of Systems Constitutional: No Symptoms, No Fever, No Chills Eyes: No Symptoms Ears, Nose, & Throat: No Symptoms Respiratory: No Symptoms, No Cough, No Dyspnea Cardiac: No Symptoms, No Chest Pain, No Edema, No Syncope Abdominal/Gastrointestinal: No Abdominal Pain, No Nausea, No Vomiting, No Diarrhea Genitourinary Symptoms: No Dysuria Musculoskeletal: No Back Pain, No Neck Pain Skin: No Rash Neurological: No Dizziness, No Focal Weakness, No Sensory Changes Psychological: No Symptoms Endocrine: No Symptoms All Other Systems: Reviewed and Negative - Past Medical History Pertinent Past Medical History: Yes Neurological History: No Pertinent History ENT History: Cataracts Cardiac History: Peripheral Vascular Disease Respiratory History: COPD Endocrine Medical History: Hypothyroidism Musculoskeletal History: Osteoarthritis, Osteoporosis GI Medical History: No Pertinent History History: Renal Disease Psycho-Social History: Depression Female Reproductive Disorders: Other Other Medical History: Bilateral hip replacement, stent LLE - Past Surgical History Past Surgical History: Yes Neuro Surgical History: No Pertinent History Cardiac: Vascular Surgery Respiratory: No Pertinent History Gastrointestinal: No Pertinent History Genitourinary: No Pertinent History Musculoskeletal: Joint Replacement Female Surgical History: Hysterectomy Other Surgical History: bladder tuck, bilateral hip replacement, stent LLE - Social History Smoking Status: Former smoker Exposure to second hand smoke: No Drug Use: none Patient Lives Alone: No - Social Determinants of Health Will the patient participate in the screening: Yes Do you worry about a steady place to live?: No In the past 12 months,have you had to go without utilities?: No Transportation Issues: No Has anyone in your support network made you feel unsafe?: No Have you or anyone in your house had to go without enough: No - Nursing Vital Signs Nursing Vital Signs: Initial Vital Signs Temperature 98.2 F 04/25/24 10:40 Pulse Rate 80 04/25/24 10:40 Respiratory Rate 23 04/25/24 10:40 Blood Pressure 194/75 04/25/24 10:40 O2 Sat by Pulse Oximetry 98 04/25/24 10:40 Pain Scale Pain Intensity 5 - Physical Exam General Appearance: no apparent distress, alert Eye Exam: PERRL/EOMI, eyes nml inspection Ears, Nose, Throat Exam: normal ENT inspection, TMs normal, pharynx normal, moist mucous membranes Neck Exam: normal inspection, non-tender, supple, full range of motion Respiratory Exam: normal breath sounds, lungs clear, No respiratory distress Cardiovascular Exam: regular rate/rhythm, normal heart sounds, normal peripheral pulses Gastrointestinal/Abdomen Exam: soft, normal bowel sounds, No tenderness, No mass Back Exam: normal inspection, normal range of motion, No CVA tenderness, No vertebral tenderness Extremity Exam: normal inspection, normal range of motion, pelvis stable Neurologic Exam: alert, oriented x 3, cooperative, normal mood/affect, nml cerebellar function, nml station & gait, sensation nml, No motor deficits Skin Exam: normal color, warm, dry, other (Skin at the lower extremities appear red, hyperemic possible early or resolving cellulitis as patient currently on antibiotics. The extremities are neurovascular tact distally compartments are soft cap refill less than 2 seconds. No lymphangitis no lymphadenopathy patient afebrile 2+ pitting edema), No rash Lymphatic Exam: No adenopathy SpO2 Interpretation: normal O2 Delivery: Room Air - Course Nursing assessment & vital signs reviewed: Yes Ordered Tests: Active Orders 24 hr Category Date Time Status IV Insertion STAT Care 04/25/24 11:11 Active ACO SDOH Referral ONCE Cons 04/25/24 11:27 Active BNPII [NT PRO BNPII] Stat Lab 04/25/24 14:20 Completed CBC W DIFF Stat Lab 04/25/24 12:00 Completed CMP Stat Lab 04/25/24 12:00 Completed TROPONIN Q4H Lab 04/25/24 12:00 Completed TROPONIN Q4H Lab 04/25/24 14:20 Completed TROPONIN Q4H Lab 04/25/24 19:15 Ordered UA W/RFX UR CULTURE Stat Lab 04/25/24 13:16 Completed Lab/Rad Data: Laboratory Result Diagrams 04/25/24 12:00 04/25/24 12:00 Laboratory Results 04/25/24 04/25/24 04/25/24 Range/Units 14:20 14:20 13:16 WBC (3.98-10.04) x10^3/uL RBC (3.93-5.22) x10^6/uL Hgb (11.2-15.7) g/dL Hct (34.1-44.9) % MCV (79.4-94.8) fL MCH (25.6-32.2) pg MCHC (32.2-35.5) g/dL RDW (11.7-14.4) % Plt Count (182-369) x10^3/uL MPV (9.4-12.3) fL Gran % (34.0-71.1) % Immature Gran % (Auto) (0.001-0.429) % Nucleat RBC Rel Count (0.00-0.2) % Eos # (Auto) (0.04-0.36) x10^3/uL Immature Gran # (Auto) (0.001-0.031) x10^3u/L Absolute Lymphs (auto) (1.18-3.74) x10^3/uL Absolute Monos (auto) (0.24-0.86) x10^3/uL Absolute Nucleated RBC (0.00-0.012) x10^3u/L Lymphocytes % (19.3-51.7) % Monocytes % (4.7-12.5) % Eosinophils % (0.7-5.8) % Basophils % (0.1-1.2) % Absolute Granulocytes (1.56-6.13) x10^3/uL Basophils # (0.01-0.08) x10^3/uL Sodium (135-145) mmol/L Potassium (3.5-5.1) mmol/L Chloride (98-107) mmol/L Carbon Dioxide (22-30) mmol/L Anion Gap (5-15) MEQ/L BUN (7-17) mg/dL Creatinine (0.52-1.04) mg/dL Estimated GFR ML/MIN Glucose (74-106) mg/dL Calcium (8.4-10.2) mg/dL Total Bilirubin (0.2-1.3) mg/dL AST (14-36) U/L ALT (0-35) U/L Alkaline Phosphatase (38-126) U/L Troponin I < 0.012 (0.000-0.033) ng/mL NT-Pro-B Natriuret Pep 333 (<300) pg/mL Serum Total Protein (6.3-8.2) g/dL Albumin (3.5-5.0) g/dL Urine Color Yellow (Yellow) Urine Appearance clear (Clear) Urine pH 6.5 (4.6-8.0) Ur Specific [place] 1.010 (1.005-1.030) Urine Protein Negative (Negative) Urine Glucose (UA) Negative (Negative) mg/dL Urine Ketones Trace A (Negative) Urine Blood Negative (Negative) Urine Nitrite Negative (Negative) Urine Bilirubin Negative (Negative) Urine Urobilinogen 0.2 (0.2) mg/dL Ur Leukocyte Esterase Negative (Negative) U Hyaline Cast (Auto) NONE SEEN (0-2) /LPF Urine Microscopic RBC 0-2 (0-5) /HPF Urine Microscopic WBC 0-2 (0-5) /HPF Ur Epithelial Cells None Seen (None Seen) /HPF Urine Bacteria None Seen (None Seen) /HPF Urine Culture Reflexed NO (NO) 04/25/24 04/25/24 04/25/24 Range/Units 12:00 12:00 12:00 WBC 7.8 (3.98-10.04) x10^3/uL RBC 3.45 L (3.93-5.22) x10^6/uL Hgb 10.5 L (11.2-15.7) g/dL Hct 33.1 L (34.1-44.9) % MCV 95.9 H (79.4-94.8) fL MCH 30.4 (25.6-32.2) pg MCHC 31.7 L (32.2-35.5) g/dL RDW 13.9 (11.7-14.4) % Plt Count 219 (182-369) x10^3/uL MPV 11.3 (9.4-12.3) fL Gran % 72.8 H (34.0-71.1) % Immature Gran % (Auto) 0.3 (0.001-0.429) % Nucleat RBC Rel Count 0.0 (0.00-0.2) % Eos # (Auto) 0.12 (0.04-0.36) x10^3/uL Immature Gran # (Auto) 0.02 (0.001-0.031) x10^3u/L Absolute Lymphs (auto) 1.09 L (1.18-3.74) x10^3/uL Absolute Monos (auto) 0.82 (0.24-0.86) x10^3/uL Absolute Nucleated RBC 0.00 (0.00-0.012) x10^3u/L Lymphocytes % 14.0 L (19.3-51.7) % Monocytes % 10.6 (4.7-12.5) % Eosinophils % 1.5 (0.7-5.8) % Basophils % 0.8 (0.1-1.2) % Absolute Granulocytes 5.65 (1.56-6.13) x10^3/uL Basophils # 0.06 (0.01-0.08) x10^3/uL Sodium 142 (135-145) mmol/L Potassium 4.1 (3.5-5.1) mmol/L Chloride 108 H (98-107) mmol/L Carbon Dioxide 27 (22-30) mmol/L Anion Gap 11.3 (5-15) MEQ/L BUN 35 H (7-17) mg/dL Creatinine 1.45 H (0.52-1.04) mg/dL Estimated GFR 34.9 ML/MIN Glucose 103 (74-106) mg/dL Calcium 9.0 (8.4-10.2) mg/dL Total Bilirubin 0.40 (0.2-1.3) mg/dL AST 40 H (14-36) U/L ALT 23 (0-35) U/L Alkaline Phosphatase 74 (38-126) U/L Troponin I < 0.012 (0.000-0.033) ng/mL NT-Pro-B Natriuret Pep (<300) pg/mL Serum Total Protein 6.6 (6.3-8.2) g/dL Albumin 3.7 (3.5-5.0) g/dL Urine Color (Yellow) Urine Appearance (Clear) Urine pH (4.6-8.0) Ur Specific [place] (1.005-1.030) Urine Protein (Negative) Urine Glucose (UA) (Negative) mg/dL Urine Ketones (Negative) Urine Blood (Negative) Urine Nitrite (Negative) Urine Bilirubin (Negative) Urine Urobilinogen (0.2) mg/dL Ur Leukocyte Esterase (Negative) U Hyaline Cast (Auto) (0-2) /LPF Urine Microscopic RBC (0-5) /HPF Urine Microscopic WBC (0-5) /HPF Ur Epithelial Cells (None Seen) /HPF Urine Bacteria (None Seen) /HPF Urine Culture Reflexed (NO) - Progress Progress: improved Progress Note: 88-year-old female presents to our ED for evaluation of leg swelling. Albumin within normal limits. Patient has chronic renal insufficiency creatinine 1.47. Troponin negative. BNP 333. Patient resting comfortably. No indication for further workup. Patient's lower extremity swelling appears to be of benign etiology at this point from an emergency point of view. We will discharge patient home. Patient agrees to follow-up with her primary care doctor within 48 hours for reevaluation. She voices no other complaints or concerns at this time. Portions of this note were created with voice recognition technology. There may be grammatical, spelling, punctuation or sound alike errors Complexity problem addressed is moderate acute complicated. No critical care time. Complex of data reviewed and analyzed is moderate. Test ordered test reviewed results analyzed and correlated clinically with history and physical exam. Risk of complication and or risk of morbidity/mortality of patient management is low. Vital stable. Time spent to discharge patient approximately 20 minutes. Plan of care established for shared decision making. No social determinants of health present to impede follow-up. Portions of this note were created with voice recognition technology. There may be grammatical, spelling, punctuation or sound alike errors 04/25/24 15:02 Counseled pt/family regarding: lab results, diagnosis, need for follow-up - Departure Departure Disposition: Home Clinical Impression: Swelling of lower extremity, Chronic renal insufficiency, Chronic renal deficiency Condition: Stable Critical Care Time: No Referrals: MASSIEL RODRÍGUEZ MD [Primary Care Provider] - Follow up/PCP as directed Instructions: Swelling Additional Instructions: Discharge/Care Plan LEROYDAVID VALDEZ LYNN was seen on 04/25/24 in the Emergency Room. The patient was counseled regarding Diagnosis,Lab results, Imaging studies, need for follow up and when to return to the Emergency Room. Prescriptions given: Discharge Note I have spoken with the patient and/or caregivers. I have explained the patient's condition, diagnosis and treatment plan based on the information available to me at this time. I have answered the patient's and/or caregiver's questions and addressed any concerns. The patient and/or caregivers have as good understanding of the patient's diagnosis, condition and treatment plan as can be expected at this point. The vital signs have been stable. The patient's condition is stable and appropriate for discharge from the emergency department. The patient will pursue further outpatient evaluation with the primary care physician or other designated or consulting physician as outlined in the discharge instructions. The patient and/or caregivers are agreeable to this plan of care and follow-up instructions have been explained in detail. The patient and/or caregivers have received these instruction. The patient/and or caregivers are aware that any significant change in condition or worsening of symptoms should prompt an immediate return to this or the closest emergency department or call 911.
[2024-04-25 11:27] VITALS: TEMP 98.2
[2024-04-25 12:09] LABS: Absolute Neutrophil Ct (ANC) 5.65 x10^3/uL (1.56-6.13); BASOPHIL % 0.8 % (0.1-1.2); Basophil (Absolute #) 0.06 x10^3/uL (0.01-0.08); Eosinophil % 1.5 % (0.7-5.8); Eosinophil (Absolute #) 0.12 x10^3/uL (0.04-0.36); Hematocrit 33.1 % (34.1-44.9); Hemoglobin 10.5 g/dL (11.2-15.7); IMMATURE GRAN # 0.02 x10^3u/L (0.001-0.031); IMMATURE GRAN % 0.3 % (0.001-0.429); Lymphocyte (Absolute #) 1.09 x10^3/uL (1.18-3.74); Mean Cell Volume 95.9 fL (79.4-94.8); Mean Corpuscular Hemoglobin 30.4 pg (25.6-32.2); Mean Corpuscular Hgb Concent. 31.7 g/dL (32.2-35.5); Mean Platelet Volume 11.3 fL (9.4-12.3); Monocyte (Absolute #) 0.82 x10^3/uL (0.24-0.86); Monocytes % 10.6 % (4.7-12.5); Neutrophil % 72.8 % (34.0-71.1); Platelet Count 219 x10^3/uL (182-369); Red Blood Count 3.45 x10^6/uL (3.93-5.22); Red Cell Distribution Width 13.9 % (11.7-14.4); White Blood Count 7.8 x10^3/uL (3.98-10.04)
[2024-04-25 12:24] LABS: ALBUMIN 3.7 g/dL (3.5-5.0); ANION GAP 11.3 MEQ/L (5-15); BILIRUBIN,TOTAL 0.4 mg/dL (0.2-1.3); Creatinine 1 1.45 mg/dL (0.52-1.04); EST GLOMERULAR FILTRATION RATE 34.9 ML/MIN; Potassium 4.1 mmol/L (3.5-5.1); Total Protein 6.6 g/dL (6.3-8.2)
[2024-04-25 13:36] LABS: Bacteria None Seen /HPF (None Seen); Bilirubin Negative (Negative); Blood Negative (Negative); Epithelial Cells None Seen /HPF (None Seen); Glucose, Urine Negative (Negative); Hyaline Casts NONE SEEN /LPF (0-2); Ketones Trace (Negative); Leukocyte Esterase Negative (Negative); Nitrite Negative (Negative); Ph 6.5 (4.6-8.0); Protein,Urine Dip Negative (Negative); RBC 0-2 /HPF (0-5); Urobilinogen 0.2 mg/dL (0.2); WBC 0-2 /HPF (0-5)
[2024-04-25 15:06] VITALS: PULSE 90; O2SAT 91
[2024-04-25 15:34] VITALS: BP 143/60; RESP 35
== END 2024-04-25 15:35 | disposition home or self-care (01) ==
LOC: ED 10:38
DX: M79.89 Other specified soft tissue disorders (principal); N18.9 Chronic kidney disease, unspecified; Z79.899 Other long term (current) drug therapy
CPT/HCPCS: 36000; 36415; 80053; 81001; 83880; 84484; 85025; 99284

== ENCOUNTER 2024-04-26 15:29 | Observation (INO) | payer MEDICARE ==
--- NOTE | 2024-04-26 15:48 | PCM.HP ---
History of Present Illness - Chief Complaint Chief Complaint: BLE edema Date: 04/26/24 History of Present Illness: is a 88 year old female with a pmhx of COPD (baseline 4L oxygen), DONATO, hypothyroidism, PVD, CKD (patient of Dr. Velez), OA, OP, HTN, and HLD jonah ent of Dr. Mendieta (podiatry) directly admitted for evaluation of BLE edema and increased shortness of breath. Patient reports a one week history of BLE edema with redness and drainage of clear fluid as well as progressive shortness of breath. She generally wears 4l of oxygen at baseline - now requiring 5L. She also endorses pain with ambulation. She had recent workup at [facility] with an Echo and bilateral lower extremity venous dopplers for which we will obtain records. She presented to ED 04/25/24 for these symptoms which I have reviewed. Upon exam BLE noted with 3+ pitting edema and erythema. No drainage or open wounds noted. Lab findings from 04/25/24 reviewed showing hgb at 10.5 (baseline), creat of 1.45 (baseine 1.3-1.5), troponins wnl, and BNP at 333. Podiatry is following patient. Admission for vensous stasis dermatitis and COPD exacerbation with concern for volume overload. Plan for CXR, unna boots -once doppler results obtained, and diuresis. Obtain cultures of any drainage. - Review of Systems Constitutional: Weakness Eyes: No Symptoms Ears, Nose, & Throat: No Symptoms Respiratory: Cough, Short Of Breath Cardiac: Edema (BLE +3 pitting edema) Abdominal/Gastrointestinal: No Symptoms Genitourinary Symptoms: No Symptoms Musculoskeletal: No Symptoms Skin: Other (BLE erythema) Neurological: No Symptoms Psychological: No Symptoms Endocrine: No Symptoms Hematologic/Lymphatic: No Symptoms Immunological/Allergic: No Symptoms Medications & Allergies Home Medications: Home Medication List Albuterol Sulfate [Proair Digihaler] 2 puffs IH Q6H PRN PRN 03/27/23 [History Confirmed 04/25/24] Ascorbic Acid 500 mg [Vitamin C 500 MG] 500 mg PO DAILY 03/27/23 [History Confirmed 04/25/24] Atorvastatin Calcium [Lipitor] 5 mg PO 3XW 03/27/23 [History Confirmed 04/25/24] Carvedilol 3.125 mg [Coreg 3.125 MG] 3.125 mg PO BID 03/27/23 [History Confirmed 04/25/24] Cholecalciferol (Vitamin D3) [Weekly-D] 1,250 mcg PO WEEKLY 03/27/23 [History Confirmed 04/25/24] Cyanocobalamin (Vitamin B-12) [Vitamin B-12] 1,000 mcg PO DAILY 03/27/23 [History Confirmed 04/25/24] Ezetimibe 10 mg [Zetia 10 MG] 10 mg PO DAILY 03/27/23 [History Confirmed 04/25/24] Fluticasone/Umeclidin/Vilanter [Trelegy Ellipta 200-62.5-25] 1 each IH DAILY 03/27/23 [History Confirmed 04/25/24] Lactobacillus Acidophilus [Acidophilus Lactobacilli] 1 each PO DAILY 03/27/23 [History Confirmed 04/25/24] Latanoprost [Xalatan] 1 drop OP EVENING MEAL 03/27/23 [History Confirmed 04/25/24] Levothyroxine Sodium 25 Mcg [Synthroid 25 Mcg] 25 mcg PO DAILY 03/27/23 [History Confirmed 04/25/24] Multivitamin with Minerals [Myvitalife] 1 each PO DAILY 03/27/23 [History Confirmed 04/25/24] Nitroglycerin 0.4 mg Tablet [Nitrostat 0.4 MG Tablet] 0.4 mg SL Q5MIN PRN MR X 3 PRN 03/27/23 [History Confirmed 04/25/24] [place] 3 Polyunsaturated Fatty 1,200 mg PO DAILY 03/27/23 [History Confirmed 04/25/24] Pyridoxine HCl 100 mg [Vitamin B-6 (Pyridoxine) 100 MG] 100 mg PO DAILY 03/27/23 [History Confirmed 04/25/24] Torsemide 10 mg PO DAILY 03/27/23 [History Confirmed 04/25/24] Amlodipine Besylate 2.5 mg PO DAILY 01/12/24 [History Confirmed 04/25/24] Aspirin EC 81 mg [Ecotrin 81 mg] 1 tablet PO 3XW 01/12/24 [History Confirmed 04/25/24] Lisinopril/Hydrochlorothiazide [Lisinopril-Hctz 20-25 mg Tab] 0.5 tablet PO DAILY 01/12/24 [History Confirmed 04/25/24] Desvenlafaxine Succinate [Pristiq] 25 mg PO CLARIFY #0 01/14/24 [Rx Confirmed 04/25/24] Desvenlafaxine Succinate [Pristiq] 50 mg PO CLARIFY #0 01/14/24 [Rx Confirmed 04/25/24] Allergies/Adverse Reactions: Allergies Allergy/AdvReac Type Severity Reaction Status Date / Time amoxicillin Allergy Unknown Nausea Verified 04/25/24 11:02 clindamycin Allergy Unknown Vomiting Verified 04/25/24 11:02 nitrofurantoin Allergy Unknown Nausea Verified 04/25/24 11:02 Sulfa (Sulfonamide Allergy Nausea Verified 04/25/24 11:02 Antibiotics) vancomycin Allergy Verified 04/25/24 11:02 IV contrast dye Allergy Unknown Uncoded 04/25/24 11:02 - Past Medical History Past Medical History: Yes Neurological History: No Pertinent History ENT History: Cataracts Cardiac History: Peripheral Vascular Disease Respiratory History: COPD Endocrine Medical History: Hypothyroidism Musculoskelatal History: Osteoarthritis, Osteoporosis GI Medical History: No Pertinent History History: Renal Disease Pyscho-Social History: Depression Reproductive Disorders: Other Comment: Bilateral hip replacement, stent LLE - Past Surgical History Past Surgical History: Yes Neuro Surgical History: No Pertinent History Cardiac History: Vascular Surgery Respiratory Surgery: No Pertinent History GI Surgical History: No Pertinent History Genitourinary Surgical Hx: No Pertinent History Musculskeletal Surgical Hx: Joint Replacement Female Surgical History: Hysterectomy Other Surgical History: bladder tuck, bilateral hip replacement, stent LLE - Social History Smoking Status: Former smoker Exposure to second hand smoke: No Alcohol: None Drug Use: none - Social Determinants of Health Will the patient participate in the screening: Yes Do you worry about a steady place to live?: No In the past 12 months,have you had to go without utilities?: No Have you or anyone in your house had to go without enough: No Transportation Issues: No Has anyone in your support network made you feel unsafe?: No Does the patient want assistance with any of the above?: No Comment: Would like a different home health agency than what she currently utilizes at home. Discharge planning ([facility]) updated. - Physical Exam General Appearance: no apparent distress Neurologic Exam: alert, oriented x 3, cooperative Eye Exam: PERRL/EOMI Ears, Nose, Throat Exam: normal ENT inspection Neck Exam: normal inspection Respiratory Exam: crackles/rales Cardiovascular Exam: regular rate/rhythm, normal heart sounds Gastrointestinal/Abdomen Exam: soft, normal bowel sounds Pelvic Exam: not done Rectal Exam: deferred Back Exam: normal inspection Extremity Exam: inflammation (BLE), swelling (+3 pitting edema BLE) Skin Exam: warm, dry Assessment/Plan (1) COPD exacerbation Current Visit: Yes Status: Acute Assessment & Plan: -4L oxygen at baseline now at 5L -CXR -RT eval -supplemental oxygen with spo2 goal 89-91% -Nebs prn/ continue home INH -resp viral panel Code(s): J44.1 - CHRONIC OBSTRUCTIVE PULMONARY DISEASE W (ACUTE) EXACERBATION (2) Venous insufficiency (chronic) (peripheral) Current Visit: No Status: Acute Assessment & Plan: -Podiatry following -plan for unna boots once doppler results obtained -Echo/doppler results at [facility] will obtain -wound culture drainage -cefazolin -CBC, CMP -LA, PCT, ESR, CRP -elevate affected limbs -Bumex (3) PVD (peripheral vascular disease) Current Visit: Yes Status: Acute Assessment & Plan: -noted, adds complexity -art duplex Code(s): I73.9 - PERIPHERAL VASCULAR DISEASE, UNSPECIFIED (4) DONATO (obstructive sleep apnea) Current Visit: Yes Status: Acute Assessment & Plan: -does not use CPAP - oxygen only Code(s): G47.33 - OBSTRUCTIVE SLEEP APNEA (ADULT) (PEDIATRIC) (5) HLD (hyperlipidemia) Current Visit: Yes Status: Acute Assessment & Plan: -continue statin Code(s): E78.5 - HYPERLIPIDEMIA, UNSPECIFIED (6) Chronic renal insufficiency Current Visit: No Status: Acute Assessment & Plan: -Follows with Dr. Agustin JAQUEZ -Monitor renal/lytes daily closely with diuresis -Avoid nephrotoxic meds -Baseline creat around (1.3-1.5) - at baseline Code(s): N18.9 - CHRONIC KIDNEY DISEASE, UNSPECIFIED (7) HTN (hypertension) Current Visit: No Status: Acute Assessment & Plan: -Hypertensive on arrival - patient did not take home meds - asymptomatic - will resume home meds Code(s): I10 - ESSENTIAL (PRIMARY) HYPERTENSION (8) Hypothyroidism Current Visit: No Status: Acute Assessment & Plan: -Check TSH -continue home synthroid Code(s): E03.9 - HYPOTHYROIDISM, UNSPECIFIED (9) Depression Current Visit: No Status: Chronic Assessment & Plan: -Resume home meds VTE: heparin Code status: Full Dispo: 1-2 days Code(s): F32.A - DEPRESSION, UNSPECIFIED Telemedicine Encounter - Telemedicine Encounter Telemedicine Encounter: "The entirety of this encounter was performed via Telemedicine" This visit was performed using real-time audio and video connection between my location and thepatients locationwith the assistance of a surrogateat the patients location. Written or verbal consent was obtained from the patient/guardian to perform this visit [facility]. Any patient questions regarding the telemedicine interaction were answered.
[2024-04-26] MEDS ORDERED: TYLENOL 325 MG PO PRN (16:39)
[2024-04-26] MEDS ORDERED: Zofran 4 MG/2 ML VIAL IV PRN (16:39)
[2024-04-26] MEDS ORDERED: NON-FORMULARY ITEM (Albuterol Sulfate [Proair Digihaler] 90 MCG Aer.Pw.Bas) IH PRN (16:49)
[2024-04-26] MEDS ORDERED: Nitrostat 0.4 MG Tablet SL PRN (16:49)
[2024-04-26] MEDS ORDERED: CHOLECALCIFEROL 1250 MCG PO SCH (17:00)
[2024-04-26 17:09] LABS: Absolute Neutrophil Ct (ANC) 5.61 x10^3/uL (1.56-6.13); BASOPHIL % 0.4 % (0.1-1.2); Basophil (Absolute #) 0.03 x10^3/uL (0.01-0.08); Eosinophil % 0.9 % (0.7-5.8); Eosinophil (Absolute #) 0.07 x10^3/uL (0.04-0.36); Hematocrit 34.8 % (34.1-44.9); Hemoglobin 10.8 g/dL (11.2-15.7); IMMATURE GRAN # 0.03 x10^3u/L (0.001-0.031); IMMATURE GRAN % 0.4 % (0.001-0.429); Lymphocyte (Absolute #) 1.21 x10^3/uL (1.18-3.74); Lymphocytes % 15.7 % (19.3-51.7); Mean Cell Volume 98.6 fL (79.4-94.8); Mean Corpuscular Hemoglobin 30.6 pg (25.6-32.2); Mean Platelet Volume 11.1 fL (9.4-12.3); Monocyte (Absolute #) 0.77 x10^3/uL (0.24-0.86); Neutrophil % 72.6 % (34.0-71.1); Platelet Count 226 x10^3/uL (182-369); Red Blood Count 3.53 x10^6/uL (3.93-5.22); White Blood Count 7.7 x10^3/uL (3.98-10.04)
[2024-04-26] MEDS ORDERED: VENTOLIN COMMON CANISTER IH PRN (17:13)
[2024-04-26] MEDS: Coreg 3.125 MG PO SCH (17:27)
[2024-04-26] MEDS: NORVASC 5 MG PO SCH (17:27)
[2024-04-26] MEDS ORDERED: MEDICATION INTERVENTION MC SCH (17:30)
[2024-04-26 17:32] LABS: ALBUMIN 3.7 g/dL (3.5-5.0); ANION GAP 8.3 MEQ/L (5-15); BILIRUBIN,TOTAL 0.4 mg/dL (0.2-1.3); Creatinine 1 1.35 mg/dL (0.52-1.04); Potassium 3.9 mmol/L (3.5-5.1); Total Protein 6.5 g/dL (6.3-8.2)
[2024-04-26 17:34] LABS: INR 1.01 (0.8-3.0); PTT 26.6 SECONDS (25.1-36.5)
[2024-04-26] MEDS: BUMEX 1 MG IV STA (17:37)
[2024-04-26] MEDS: FISH OIL 1,000 MG CAPSULE PO SCH (17:38)
[2024-04-26] MEDS: Protonix 40MG Tablet PO SCH (17:39)
[2024-04-26] MEDS: Vitamin B-12 500 MCG PO SCH (17:39)
[2024-04-26] MEDS: THERAGRAN MULTIVITAMIN PO SCH (17:39)
[2024-04-26] MEDS: Vitamin C 500 MG PO SCH (17:39)
[2024-04-26] MEDS: Vitamin B-6 (Pyridoxine) 100 MG PO SCH (17:39)
[2024-04-26] MEDS: PHARMACY DOSING REQUEST MC ONE (17:46)
[2024-04-26] MEDS: Zetia 10 MG PO SCH (17:49)
[2024-04-26] MEDS: PRISTIQ ER PO SCH (17:49)
[2024-04-26] MEDS: SYNTHROID 25 MCG PO SCH (17:49)
[2024-04-26] MEDS: Acidophilus TABLET PO SCH (17:49)
[2024-04-26] MEDS: Zocor 10MG PO SCH (17:50)
[2024-04-26 17:57] LABS: INFLUENZA A NEGATIVE (NEGATIVE); INFLUENZA B NEGATIVE (NEGATIVE); RESPIRATORY SYNCTIAL VIRUS NEGATIVE (NEGATIVE); SARS-CoV-2 Xpert Express NEGATIVE (NEGATIVE)
[2024-04-26] MEDS ORDERED: NON-FORMULARY ITEM (Atorvastatin Calcium 10 MG Tablet) PO SCH (18:00)
[2024-04-26] MEDS: KEFZOL 1 GM/50 ML PREMIX** 1 GM/50 ML IVPB IV SCH (18:24)
[2024-04-26 19:51] LABS: Appearance Clear (Clear); Bacteria None Seen /HPF (None Seen); Bilirubin Negative (Negative); Blood Negative (Negative); Epithelial Cells None Seen /HPF (None Seen); Glucose, Urine Negative (Negative); Hyaline Casts NONE SEEN /LPF (0-2); Ketones Negative (Negative); Leukocyte Esterase Negative (Negative); Nitrite Negative (Negative); Ph 5.5 (4.6-8.0); Protein,Urine Dip Negative (Negative); RBC 0-2 /HPF (0-5); Specific Gravity <=1.005 (1.005-1.030); Urobilinogen 0.2 mg/dL (0.2); WBC 0-2 /HPF (0-5)
[2024-04-26] MEDS: HEPARIN 5000 UNITS/0.5 ML (HIGH RISK MED) SQ SCH (22:39)
[2024-04-27 04:37] LABS: BASOPHIL % 0.6 % (0.1-1.2); Basophil (Absolute #) 0.04 x10^3/uL (0.01-0.08); Eosinophil % 3.5 % (0.7-5.8); Eosinophil (Absolute #) 0.23 x10^3/uL (0.04-0.36); Hematocrit 31.1 % (34.1-44.9); Hemoglobin 9.7 g/dL (11.2-15.7); IMMATURE GRAN # 0.02 x10^3u/L (0.001-0.031); IMMATURE GRAN % 0.3 % (0.001-0.429); Lymphocyte (Absolute #) 1.62 x10^3/uL (1.18-3.74); Lymphocytes % 24.8 % (19.3-51.7); Mean Corpuscular Hemoglobin 29.9 pg (25.6-32.2); Mean Corpuscular Hgb Concent. 31.2 g/dL (32.2-35.5); Mean Platelet Volume 11.6 fL (9.4-12.3); Monocyte (Absolute #) 0.93 x10^3/uL (0.24-0.86); Monocytes % 14.2 % (4.7-12.5); Neutrophil % 56.6 % (34.0-71.1); Platelet Count 211 x10^3/uL (182-369); Red Blood Count 3.24 x10^6/uL (3.93-5.22); White Blood Count 6.5 x10^3/uL (3.98-10.04)
--- NOTE | 2024-04-27 05:07 | PCM.NOTE ---
Date and Time: 04/27/24 0507 Subjective Assessment: is a 88 year old female with a pmhx of COPD (baseline 4L oxygen), DONATO, hypothyroidism, PVD, CKD (patient of Dr. Velez), OA, OP, HTN, and HLD patient of Dr. Mendieta (podiatry) directly admitted for evaluation of BLE edema and increased shortness of breath. Patient reports a one week history of BLE edema with redness and drainage of clear fluid as well as progressive shortness of breath. She generally wears 4l of oxygen at baseline - now requiring 5L. She also endorses pain with ambulation. She had recent workup at [facility] with an Echo and bilateral lower extremity venous dopplers for which we will obtain records. She presented to ED 04/25/24 for these symptoms which I have reviewed. U deb exam BLE noted with 3+ pitting edema and erythema. No drainage or open wounds noted. Lab findings from 04/25/24 reviewed showing hgb at 10.5 (baseline), creat of 1.45 (baseine 1.3-1.5), troponins wnl, and BNP at 333. Podiatry is following patient. Admission for vensous stasis dermatitis and COPD exacerbation with concern for volume overload. Plan for CXR, unna boots -once doppler results obtained, and diuresis. Obtain cultures of any drainage. 04/27/24: Patient reports dyspnea and productive cough with yellow sputum. On baseline oxygen of 4L. Crackles and exp wheezing noted on lung auscultation. Solumedrol ordered. BLE edema improved greatly - BLE now at 1-2+ pitting. Plan for unna boots today. Decrease Bumex. Most likely can discharge tomorrow pending treatment response. Denies fever,cp, abdominal pain, JULES, dizziness, N/V/D. - Review of Systems Constitutional: No Symptoms Eyes: No Symptoms Ears, Nose, & Throat: No Symptoms Respiratory: Cough, Short Of Breath, Wheezing Cardiac: Edema (BLE 1-2+ pitting) Abdominal/Gastrointestinal: No Symptoms Genitourinary Symptoms: No Symptoms Musculoskeletal: No Symptoms Skin: No Symptoms Neurological: No Symptoms Psychological: No Symptoms Endocrine: No Symptoms Hematologic/Lymphatic: No Symptoms Immunological/Allergic: No Symptoms Objective Exam General Appearance: no apparent distress Neurologic Exam: alert, oriented x 3, cooperative Skin Exam: normal color Wound Assessment: Skin/Wound Assessment Wound/Incision Assessment Start: 04/26/24 16:22 Text: Status: Active Freq: Q6H Protocol: Document 04/27/24 02:00 LB (Rec: 04/27/24 04:37 LB [id number]) Wound/Incision Assessment left lower leg Wound Assessment Shift Assessment Wound Type Stasis Ulcer Wound Stage Non Pressure Wound Drainage Amount None General Appearance Open to air Length (cm) (cm) 0.9 Width (cm) (cm) 0.8 Wound Bed Greatest Portion Red (Granulation) Surrounding Tissue Shiny,Edematous-pitting Wound Photo Photo Taken No Eye Exam: PERRL Ears, Nose, Throat Exam: normal ENT inspection Neck Exam: normal inspection Respiratory Exam: crackles/rales, wheezing Cardiovascular Exam: regular rate/rhythm, normal heart sounds Gastrointestinal/Abdomen Exam: soft, normal bowel sounds Extremity Exam: inflammation (BLE), swelling (BLE edema 1-2+pitting) Back Exam: normal inspection Pelvic Exam: deferred Rectal Exam: deferred Objective Data Vital Signs: Vital Signs - 24 hr Temp Pulse Resp BP Pulse Ox 04/27/24 03:42 98.0 F 94 H 20 148/65 96 04/26/24 23:41 98.3 F 83 18 168/72 100 04/26/24 19:22 85 18 92 L 04/26/24 19:21 92 L 04/26/24 18:39 98.5 F 89 21 158/65 04/26/24 17:14 95 04/26/24 17:08 86 20 98 04/26/24 16:00 97.6 F 90 20 212/85 96 04/26/24 15:49 97.6 F 90 20 212/85 96 Pain Assessment - Last Documented Pain Intensity 1 Intake and Output: Intake & Output 04/24/24 04/25/24 04/26/24 04/27/24 11:59 11:59 11:59 11:59 Intake Total 620 Output Total 1500 Balance -880 Weight 50.7 kg Lab Results: Lab Results-Last 24 Hours 04/26/24 04/26/24 04/26/24 Range/Units 16:39 17:00 17:00 WBC (3.98-10.04) x10^3/uL RBC (3.93-5.22) x10^6/uL Hgb (11.2-15.7) g/dL Hct (34.1-44.9) % MCV (79.4-94.8) fL MCH (25.6-32.2) pg MCHC (32.2-35.5) g/dL RDW (11.7-14.4) % Plt Count (182-369) x10^3/uL MPV (9.4-12.3) fL Gran % (34.0-71.1) % Immature Gran % (Auto) (0.001-0.429) % Nucleat RBC Rel Count (0.00-0.2) % Eos # (Auto) (0.04-0.36) x10^3/uL Immature Gran # (Auto) (0.001-0.031) x10^3u/L Absolute Lymphs (auto) (1.18-3.74) x10^3/uL Absolute Monos (auto) (0.24-0.86) x10^3/uL Absolute Nucleated RBC (0.00-0.012) x10^3u/L Lymphocytes % (19.3-51.7) % Monocytes % (4.7-12.5) % Eosinophils % (0.7-5.8) % Basophils % (0.1-1.2) % Absolute Granulocytes (1.56-6.13) x10^3/uL Basophils # (0.01-0.08) x10^3/uL ESR 33 H (0-20) mm/hr PT (9.4-12.5) SECONDS INR (0.8-3.0) APTT (25.1-36.5) SECONDS Sodium (135-145) mmol/L Potassium (3.5-5.1) mmol/L Chloride (98-107) mmol/L Carbon Dioxide (22-30) mmol/L Anion Gap (5-15) MEQ/L BUN (7-17) mg/dL Creatinine (0.52-1.04) mg/dL Estimated GFR ML/MIN Glucose (74-106) mg/dL Lactic Acid 0.7 (0.4-2.0) Calcium (8.4-10.2) mg/dL Total Bilirubin (0.2-1.3) mg/dL AST (14-36) U/L ALT (0-35) U/L Alkaline Phosphatase (38-126) U/L Serum Total Protein (6.3-8.2) g/dL Albumin (3.5-5.0) g/dL Procalcitonin (0.030-0.080) ng/mL TSH 3rd Generation 1.694 (0.470-4.680) mIU/L Urine Color (Yellow) Urine Appearance (Clear) Urine pH (4.6-8.0) Ur Specific Darden (1.005-1.030) Urine Protein (Negative) Urine Glucose (UA) (Negative) mg/dL Urine Ketones (Negative) Urine Blood (Negative) Urine Nitrite (Negative) Urine Bilirubin (Negative) Urine Urobilinogen (0.2) mg/dL Ur Leukocyte Esterase (Negative) U Hyaline Cast (Auto) (0-2) /LPF Urine Microscopic RBC (0-5) /HPF Urine Microscopic WBC (0-5) /HPF Ur Epithelial Cells (None Seen) /HPF Urine Bacteria (None Seen) /HPF Urine Culture Reflexed (NO) Influenza Type A Ag (NEGATIVE) Influenza Type B Ag (NEGATIVE) RSV (PCR) (NEGATIVE) SARS-CoV-2 (PCR) (NEGATIVE) 04/26/24 04/26/24 04/26/24 Range/Units 17:00 17:00 17:00 WBC 7.7 (3.98-10.04) x10^3/uL RBC 3.53 L (3.93-5.22) x10^6/uL Hgb 10.8 L (11.2-15.7) g/dL Hct 34.8 (34.1-44.9) % MCV 98.6 H (79.4-94.8) fL MCH 30.6 (25.6-32.2) pg MCHC 31.0 L (32.2-35.5) g/dL RDW 14.0 (11.7-14.4) % Plt Count 226 (182-369) x10^3/uL MPV 11.1 (9.4-12.3) fL Gran % 72.6 H (34.0-71.1) % Immature Gran % (Auto) 0.4 (0.001-0.429) % Nucleat RBC Rel Count 0.0 (0.00-0.2) % Eos # (Auto) 0.07 (0.04-0.36) x10^3/uL Immature Gran # (Auto) 0.03 (0.001-0.031) x10^3u/L Absolute Lymphs (auto) 1.21 (1.18-3.74) x10^3/uL Absolute Monos (auto) 0.77 (0.24-0.86) x10^3/uL Absolute Nucleated RBC 0.00 (0.00-0.012) x10^3u/L Lymphocytes % 15.7 L (19.3-51.7) % Monocytes % 10.0 (4.7-12.5) % Eosinophils % 0.9 (0.7-5.8) % Basophils % 0.4 (0.1-1.2) % Absolute Granulocytes 5.61 (1.56-6.13) x10^3/uL Basophils # 0.03 (0.01-0.08) x10^3/uL ESR (0-20) mm/hr PT (9.4-12.5) SECONDS INR (0.8-3.0) APTT (25.1-36.5) SECONDS Sodium 141 (135-145) mmol/L Potassium 3.9 (3.5-5.1) mmol/L Chloride 109 H (98-107) mmol/L Carbon Dioxide 28 (22-30) mmol/L Anion Gap 8.3 (5-15) MEQ/L BUN 29 H (7-17) mg/dL Creatinine 1.35 H (0.52-1.04) mg/dL Estimated GFR 38.0 ML/MIN Glucose 100 (74-106) mg/dL Lactic Acid (0.4-2.0) Calcium 9.0 (8.4-10.2) mg/dL Total Bilirubin 0.40 (0.2-1.3) mg/dL AST 40 H (14-36) U/L ALT 24 (0-35) U/L Alkaline Phosphatase 69 (38-126) U/L Serum Total Protein 6.5 (6.3-8.2) g/dL Albumin 3.7 (3.5-5.0) g/dL Procalcitonin 0.070 (0.030-0.080) ng/mL TSH 3rd Generation (0.470-4.680) mIU/L Urine Color (Yellow) Urine Appearance (Clear) Urine pH (4.6-8.0) Ur Specific Darden (1.005-1.030) Urine Protein (Negative) Urine Glucose (UA) (Negative) mg/dL Urine Ketones (Negative) Urine Blood (Negative) Urine Nitrite (Negative) Urine Bilirubin (Negative) Urine Urobilinogen (0.2) mg/dL Ur Leukocyte Esterase (Negative) U Hyaline Cast (Auto) (0-2) /LPF Urine Microscopic RBC (0-5) /HPF Urine Microscopic WBC (0-5) /HPF Ur Epithelial Cells (None Seen) /HPF Urine Bacteria (None Seen) /HPF Urine Culture Reflexed (NO) Influenza Type A Ag (NEGATIVE) Influenza Type B Ag (NEGATIVE) RSV (PCR) (NEGATIVE) SARS-CoV-2 (PCR) (NEGATIVE) 04/26/24 04/26/24 04/26/24 Range/Units 17:00 17:00 19:44 WBC (3.98-10.04) x10^3/uL RBC (3.93-5.22) x10^6/uL Hgb (11.2-15.7) g/dL Hct (34.1-44.9) % MCV (79.4-94.8) fL MCH (25.6-32.2) pg MCHC (32.2-35.5) g/dL RDW (11.7-14.4) % Plt Count (182-369) x10^3/uL MPV (9.4-12.3) fL Gran % (34.0-71.1) % Immature Gran % (Auto) (0.001-0.429) % Nucleat RBC Rel Count (0.00-0.2) % Eos # (Auto) (0.04-0.36) x10^3/uL Immature Gran # (Auto) (0.001-0.031) x10^3u/L Absolute Lymphs (auto) (1.18-3.74) x10^3/uL Absolute Monos (auto) (0.24-0.86) x10^3/uL Absolute Nucleated RBC (0.00-0.012) x10^3u/L Lymphocytes % (19.3-51.7) % Monocytes % (4.7-12.5) % Eosinophils % (0.7-5.8) % Basophils % (0.1-1.2) % Absolute Granulocytes (1.56-6.13) x10^3/uL Basophils # (0.01-0.08) x10^3/uL ESR (0-20) mm/hr PT 11.0 (9.4-12.5) SECONDS INR 1.01 (0.8-3.0) APTT 26.6 (25.1-36.5) SECONDS Sodium (135-145) mmol/L Potassium (3.5-5.1) mmol/L Chloride (98-107) mmol/L Carbon Dioxide (22-30) mmol/L Anion Gap (5-15) MEQ/L BUN (7-17) mg/dL Creatinine (0.52-1.04) mg/dL Estimated GFR ML/MIN Glucose (74-106) mg/dL Lactic Acid (0.4-2.0) Calcium (8.4-10.2) mg/dL Total Bilirubin (0.2-1.3) mg/dL AST (14-36) U/L ALT (0-35) U/L Alkaline Phosphatase (38-126) U/L Serum Total Protein (6.3-8.2) g/dL Albumin (3.5-5.0) g/dL Procalcitonin (0.030-0.080) ng/mL TSH 3rd Generation (0.470-4.680) mIU/L Urine Color Yellow (Yellow) Urine Appearance Clear (Clear) Urine pH 5.5 (4.6-8.0) Ur Specific Darden <=1.005 (1.005-1.030) Urine Protein Negative (Negative) Urine Glucose (UA) Negative (Negative) mg/dL Urine Ketones Negative (Negative) Urine Blood Negative (Negative) Urine Nitrite Negative (Negative) Urine Bilirubin Negative (Negative) Urine Urobilinogen 0.2 (0.2) mg/dL Ur Leukocyte Esterase Negative (Negative) U Hyaline Cast (Auto) NONE SEEN (0-2) /LPF Urine Microscopic RBC 0-2 (0-5) /HPF Urine Microscopic WBC 0-2 (0-5) /HPF Ur Epithelial Cells None Seen (None Seen) /HPF Urine Bacteria None Seen (None Seen) /HPF Urine Culture Reflexed NO (NO) Influenza Type A Ag NEGATIVE (NEGATIVE) Influenza Type B Ag NEGATIVE (NEGATIVE) RSV (PCR) NEGATIVE (NEGATIVE) SARS-CoV-2 (PCR) NEGATIVE (NEGATIVE) 04/27/24 Range/Units 04:25 WBC 6.5 (3.98-10.04) x10^3/uL RBC 3.24 L (3.93-5.22) x10^6/uL Hgb 9.7 L (11.2-15.7) g/dL Hct 31.1 L (34.1-44.9) % MCV 96.0 H (79.4-94.8) fL MCH 29.9 (25.6-32.2) pg MCHC 31.2 L (32.2-35.5) g/dL RDW 14.0 (11.7-14.4) % Plt Count 211 (182-369) x10^3/uL MPV 11.6 (9.4-12.3) fL Gran % 56.6 (34.0-71.1) % Immature Gran % (Auto) 0.3 (0.001-0.429) % Nucleat RBC Rel Count 0.0 (0.00-0.2) % Eos # (Auto) 0.23 (0.04-0.36) x10^3/uL Immature Gran # (Auto) 0.02 (0.001-0.031) x10^3u/L Absolute Lymphs (auto) 1.62 (1.18-3.74) x10^3/uL Absolute Monos (auto) 0.93 H (0.24-0.86) x10^3/uL Absolute Nucleated RBC 0.00 (0.00-0.012) x10^3u/L Lymphocytes % 24.8 (19.3-51.7) % Monocytes % 14.2 H (4.7-12.5) % Eosinophils % 3.5 (0.7-5.8) % Basophils % 0.6 (0.1-1.2) % Absolute Granulocytes 3.70 (1.56-6.13) x10^3/uL Basophils # 0.04 (0.01-0.08) x10^3/uL ESR (0-20) mm/hr PT (9.4-12.5) SECONDS INR (0.8-3.0) APTT (25.1-36.5) SECONDS Sodium (135-145) mmol/L Potassium (3.5-5.1) mmol/L Chloride (98-107) mmol/L Carbon Dioxide (22-30) mmol/L Anion Gap (5-15) MEQ/L BUN (7-17) mg/dL Creatinine (0.52-1.04) mg/dL Estimated GFR ML/MIN Glucose (74-106) mg/dL Lactic Acid (0.4-2.0) Calcium (8.4-10.2) mg/dL Total Bilirubin (0.2-1.3) mg/dL AST (14-36) U/L ALT (0-35) U/L Alkaline Phosphatase (38-126) U/L Serum Total Protein (6.3-8.2) g/dL Albumin (3.5-5.0) g/dL Procalcitonin (0.030-0.080) ng/mL TSH 3rd Generation (0.470-4.680) mIU/L Urine Color (Yellow) Urine Appearance (Clear) Urine pH (4.6-8.0) Ur Specific Darden (1.005-1.030) Urine Protein (Negative) Urine Glucose (UA) (Negative) mg/dL Urine Ketones (Negative) Urine Blood (Negative) Urine Nitrite (Negative) Urine Bilirubin (Negative) Urine Urobilinogen (0.2) mg/dL Ur Leukocyte Esterase (Negative) U Hyaline Cast (Auto) (0-2) /LPF Urine Microscopic RBC (0-5) /HPF Urine Microscopic WBC (0-5) /HPF Ur Epithelial Cells (None Seen) /HPF Urine Bacteria (None Seen) /HPF Urine Culture Reflexed (NO) Influenza Type A Ag (NEGATIVE) Influenza Type B Ag (NEGATIVE) RSV (PCR) (NEGATIVE) SARS-CoV-2 (PCR) (NEGATIVE) Radiology Exams: Radiology Procedures Category Date Time Status CHEST 2 VIEWS (PA AND LAT) Stat Exams 04/26/24 16:39 Taken Assessment/Plan (1) COPD exacerbation Current Visit: Yes Status: Acute Assessment & Plan: -4L oxygen at baseline now at 5L -CXR -RT eval -supplemental oxygen with spo2 goal 89-91% -Nebs prn/ continue home INH -resp viral panel 04/27: -at baseline oxygen of 4L -continue abx - add solumedrol -resp viral panel negative Code(s): J44.1 - CHRONIC OBSTRUCTIVE PULMONARY DISEASE W (ACUTE) EXACERBATION (2) Venous insufficiency (chronic) (peripheral) Current Visit: No Status: Acute Assessment & Plan: -Podiatry following -plan for unna boots once doppler results obtained -Echo/doppler results at [place] will obtain -wound culture drainage -cefazolin -CBC, CMP -LA, PCT, ESR, CRP -elevate affected limbs -Bumex 04/27: -LA/procal wnl -ESR at 33/CRP pending -Podiatry following - unna boots - doppler obtained from [place] negative -consider art doppler - pt states she has had this testing at [place] - will try to obtain -edema much improved - decrease Bumex to 1mg (3) PVD (peripheral vascular disease) Current Visit: Yes Status: Acute Assessment & Plan: -noted, adds complexity -art duplex Code(s): I73.9 - PERIPHERAL VASCULAR DISEASE, UNSPECIFIED (4) DONATO (obstructive sleep apnea) Current Visit: Yes Status: Acute Assessment & Plan: -does not use CPAP - oxygen only Code(s): G47.33 - OBSTRUCTIVE SLEEP APNEA (ADULT) (PEDIATRIC) (5) HLD (hyperlipidemia) Current Visit: Yes Status: Acute Assessment & Plan: -continue statin Code(s): E78.5 - HYPERLIPIDEMIA, UNSPECIFIED (6) Chronic renal insufficiency Current Visit: No Status: Acute Assessment & Plan: -Follows with Dr. Velez OP -Monitor renal/lytes daily closely with diuresis -Avoid nephrotoxic meds -Baseline creat around (1.3-1.5) - at baseline Code(s): N18.9 - CHRONIC KIDNEY DISEASE, UNSPECIFIED (7) HTN (hypertension) Current Visit: No Status: Acute Assessment & Plan: -Hypertensive on arrival - patient did not take home meds - asymptomatic - will resume home meds Code(s): I10 - ESSENTIAL (PRIMARY) HYPERTENSION (8) Hypothyroidism Current Visit: No Status: Acute Assessment & Plan: -TSH WNL -continue home synthroid Code(s): E03.9 - HYPOTHYROIDISM, UNSPECIFIED (9) Depression Current Visit: No Status: Chronic Assessment & Plan: -Resume home meds VTE: heparin Code status: Full Dispo: 1-2 days Code(s): J44.1 - CHRONIC OBSTRUCTIVE PULMONARY DISEASE W (ACUTE) EXACERBATION (2) Venous insufficiency (chronic) (peripheral) Current Visit: No Status: Acute (3) PVD (peripheral vascular disease) Current Visit: Yes Status: Acute Code(s): I73.9 - PERIPHERAL VASCULAR DISEASE, UNSPECIFIED (4) DONATO (obstructive sleep apnea) Current Visit: Yes Status: Acute Code(s): G47.33 - OBSTRUCTIVE SLEEP APNEA (ADULT) (PEDIATRIC) (5) HLD (hyperlipidemia) Current Visit: Yes Status: Acute Code(s): E78.5 - HYPERLIPIDEMIA, UNSPECIFIED (6) Chronic renal insufficiency Current Visit: No Status: Acute Code(s): N18.9 - CHRONIC KIDNEY DISEASE, UNSPECIFIED (7) HTN (hypertension) Current Visit: No Status: Acute Code(s): I10 - ESSENTIAL (PRIMARY) HYPERTENSION (8) Hypothyroidism Current Visit: No Status: Acute Code(s): E03.9 - HYPOTHYROIDISM, UNSPECIFIED (9) Depression Current Visit: No Status: Chronic Code(s): F32.A - DEPRESSION, UNSPECIFIED
[2024-04-27 05:11] LABS: ALBUMIN 3.1 g/dL (3.5-5.0); ANION GAP 7.5 MEQ/L (5-15); BILIRUBIN,TOTAL 0.3 mg/dL (0.2-1.3); Calcium 8.5 mg/dL (8.4-10.2); Creatinine 1 1.32 mg/dL (0.52-1.04); EST GLOMERULAR FILTRATION RATE 39.1 ML/MIN; Potassium 3.8 mmol/L (3.5-5.1); Total Protein 5.6 g/dL (6.3-8.2)
[2024-04-27] MEDS: Xalatan OP SCH (05:16)
--- NOTE | 2024-04-27 08:30 | XRAY ---
Indication: Short of breath. Comparison: January 18, 2024 AP/lateral chest obtained in wheelchair again demonstrates COPD. No focal infiltrate, consolidation, or large effusion. Heart and mediastinal structures within normal limits. Bony thorax intact again with osteopenia, degenerative changes, and scoliosis. Impression: Continue nonacute chest with chronic features.
[2024-04-27] MEDS: BUMEX 1 MG IV SCH (09:17)
[2024-04-27] MEDS: solu-MEDROL 40 MG, Sterile H2O 10 ml 1 ML IV SCH (09:18)
[2024-04-27] MEDS: KEFZOL 1 GM/50 ML PREMIX** 1 GM/50 ML IVPB IV SCH (09:21)
[2024-04-27] MEDS ORDERED: OMEGA PO SCH (10:00)
[2024-04-27] MEDS ORDERED: [UNRECOGNIZED DRUG - OTHER] PO SCH (10:00)
[2024-04-27] MEDS ORDERED: NON-FORMULARY ITEM (Fluticasone/Umeclidin/Vilanter [Trelegy Ellipta 200-62.5-25] 1 EACH Bl IH SCH (10:00)
[2024-04-27] MEDS ORDERED: MULTIVITAMIN WITH MINERALS PO SCH (10:00)
[2024-04-27] MEDS ORDERED: LACTOBACILLUS ACIDOPHILUS PO SCH (10:00)
[2024-04-27] MEDS ORDERED: NON-FORMULARY ITEM (Cyanocobalamin (Vitamin B-12) [Vitamin B-12] 1,000 MCG Capsule) PO SCH (10:00)
[2024-04-27] MEDS ORDERED: solu-MEDROL IV SCH (10:00)
[2024-04-27] MEDS: DUONEB 0.5-3 MG/3 ml Neb IH PRN (13:12)
[2024-04-27] MEDS: PATIENT OWN MEDICATION IH SCH ×2 (13:28→23:43)
[2024-04-28 04:35] LABS: BASOPHIL % 0.1 % (0.1-1.2); Basophil (Absolute #) 0.01 x10^3/uL (0.01-0.08); Eosinophil (Absolute #) 0 x10^3/uL (0.04-0.36); Hematocrit 32.4 % (34.1-44.9); Hemoglobin 10.5 g/dL (11.2-15.7); IMMATURE GRAN # 0.03 x10^3u/L (0.001-0.031); IMMATURE GRAN % 0.4 % (0.001-0.429); Lymphocyte (Absolute #) 0.62 x10^3/uL (1.18-3.74); Lymphocytes % 8.8 % (19.3-51.7); Mean Cell Volume 94.2 fL (79.4-94.8); Mean Corpuscular Hemoglobin 30.5 pg (25.6-32.2); Mean Corpuscular Hgb Concent. 32.4 g/dL (32.2-35.5); Mean Platelet Volume 11.7 fL (9.4-12.3); Monocyte (Absolute #) 0.07 x10^3/uL (0.24-0.86); Neutrophil % 89.7 % (34.0-71.1); Platelet Count 244 x10^3/uL (182-369); Red Blood Count 3.44 x10^6/uL (3.93-5.22); Red Cell Distribution Width 13.8 % (11.7-14.4)
[2024-04-28 05:03] LABS: ALBUMIN 3.5 g/dL (3.5-5.0); ANION GAP 13.9 MEQ/L (5-15); BILIRUBIN,TOTAL 0.3 mg/dL (0.2-1.3); Calcium 8.9 mg/dL (8.4-10.2); Creatinine 1 1.29 mg/dL (0.52-1.04); EST GLOMERULAR FILTRATION RATE 40.2 ML/MIN; Total Protein 6.3 g/dL (6.3-8.2)
--- NOTE | 2024-04-28 05:06 | PCM.NOTE ---
Date and Time: 04/28/24 0509 Subjective Assessment: is a 88 year old female with a pmhx of COPD (baseline 4L oxygen), DONATO, hypothyroidism, PVD, CKD (patient of Dr. Velez), OA, OP, HTN, and HLD patient of Dr. Mendieta (podiatry) directly admitted for evaluation of BLE edema and increased shortness of breath. Patient reports a one week history of BLE edema with redness and drainage of clear fluid as well as progressive shortness of breath. She generally wears 4l of oxygen at baseline - now requiring 5L. She also endorses pain with ambulation. She had recent workup at [facility] with an Echo and bilateral lower extremity venous dopplers for which we will obtain records. She presented to ED 04/25/24 for these symptoms which I have reviewed. U deb exam BLE noted with 3+ pitting edema and erythema. No drainage or open wounds noted. Lab findings from 04/25/24 reviewed showing hgb at 10.5 (baseline), creat of 1.45 (baseine 1.3-1.5), troponins wnl, and BNP at 333. Podiatry is following patient. Admission for vensous stasis dermatitis and COPD exacerbation with concern for volume overload. Plan for CXR, unna boots -once doppler results obtained, and diuresis. Obtain cultures of any drainage. 04/27/24: Patient reports dyspnea and productive cough with yellow sputum. On baseline oxygen of 4L. Crackles and exp wheezing noted on lung auscultation. Solumedrol ordered. BLE edema improved greatly - BLE now at 1-2+ pitting. Plan for unna boots today. Decrease Bumex. Most likely can discharge tomorrow pending treatment response. Denies fever,cp, abdominal pain, JULES, dizziness, N/V/D. Objective Exam Wound Assessment: Skin/Wound Assessment Wound/Incision Assessment Start: 04/26/24 16:22 Text: Status: Active Freq: Q6H Protocol: Document 04/28/24 02:00 MP (Rec: 04/28/24 03:34 MP [id number]) Wound/Incision Assessment left lower leg Wound Assessment Shift Assessment Comment wrapped per podiatry. unable to assess Wound Photo Photo Taken No Objective Data Vital Signs: Vital Signs - 24 hr Temp Pulse Resp BP Pulse Ox 04/28/24 04:00 97.5 F 85 21 159/71 96 04/28/24 00:00 98.2 F 83 18 137/65 98 04/27/24 20:00 98.3 F 84 17 131/60 100 04/27/24 19:13 85 16 99 04/27/24 16:00 98.2 F 86 18 161/71 94 L 04/27/24 13:16 86 14 99 04/27/24 12:58 160/62 04/27/24 12:00 97.1 F 77 18 182/79 99 04/27/24 07:29 97.6 F 78 18 179/72 98 Pain Assessment - Last Documented Pain Intensity 0 Intake and Output: Intake & Output 04/25/24 04/26/24 04/27/24 04/28/24 11:59 11:59 11:59 11:59 Intake Total 740 740 Output Total 2500 850 Balance -1760 -110 Weight 48.7 kg Lab Results: Lab Results-Last 24 Hours 04/27/24 04/28/24 Range/Units 04:25 04:10 WBC 7.0 (3.98-10.04) x10^3/uL RBC 3.44 L (3.93-5.22) x10^6/uL Hgb 10.5 L (11.2-15.7) g/dL Hct 32.4 L (34.1-44.9) % MCV 94.2 (79.4-94.8) fL MCH 30.5 (25.6-32.2) pg MCHC 32.4 (32.2-35.5) g/dL RDW 13.8 (11.7-14.4) % Plt Count 244 (182-369) x10^3/uL MPV 11.7 (9.4-12.3) fL Gran % 89.7 H (34.0-71.1) % Immature Gran % (Auto) 0.4 (0.001-0.429) % Nucleat RBC Rel Count 0.0 (0.00-0.2) % Eos # (Auto) 0 L (0.04-0.36) x10^3/uL Immature Gran # (Auto) 0.03 (0.001-0.031) x10^3u/L Absolute Lymphs (auto) 0.62 L (1.18-3.74) x10^3/uL Absolute Monos (auto) 0.07 L (0.24-0.86) x10^3/uL Absolute Nucleated RBC 0.00 (0.00-0.012) x10^3u/L Lymphocytes % 8.8 L (19.3-51.7) % Monocytes % 1.0 L (4.7-12.5) % Eosinophils % 0.0 L (0.7-5.8) % Basophils % 0.1 (0.1-1.2) % Absolute Granulocytes 6.30 H (1.56-6.13) x10^3/uL Basophils # 0.01 (0.01-0.08) x10^3/uL Sodium 142 (135-145) mmol/L Potassium 3.8 (3.5-5.1) mmol/L Chloride 107 (98-107) mmol/L Carbon Dioxide 31 H (22-30) mmol/L Anion Gap 7.5 (5-15) MEQ/L BUN 30 H (7-17) mg/dL Creatinine 1.32 H (0.52-1.04) mg/dL Estimated GFR 39.1 ML/MIN Glucose 107 H (74-106) mg/dL Calcium 8.5 (8.4-10.2) mg/dL Total Bilirubin 0.30 (0.2-1.3) mg/dL AST 33 (14-36) U/L ALT 20 (0-35) U/L Alkaline Phosphatase 59 (38-126) U/L Serum Total Protein 5.6 L (6.3-8.2) g/dL Albumin 3.1 L (3.5-5.0) g/dL Radiology Exams: Radiology Procedures Category Date Time Status CHEST 2 VIEWS (PA AND LAT) Stat Exams 04/26/24 16:39 Completed Multi-Disciplinary Progress Notes: Multi-Disciplinary Progress Notes 04/27/24 11:50 Case Management Note by Yakelin Dumont PATIENT HAS [facility]. THEY WERE NOTIFIED PATIENT HERE OBS. THEY WILL NEED NOTIFIED AT TIME OF DC AT [phone]. THEY WILL NEED FAXED THE DC INSTRUCTIONS, DC MED LIST AND DC SUMMARY TO [phone]. 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 SHE REPORTS SHE [facility] BUT WAS NOT FOND OF HIM. SHE VERIFIED UNDERSTANDING AND STATED SHE WOULD MAKE A NOTE ON HER CHART Initialized on 04/27/24 11:50 - END OF NOTE Assessment/Plan (1) COPD exacerbation Current Visit: Yes Status: Acute Assessment & Plan: -4L oxygen at baseline now at 5L -CXR -RT eval -supplemental oxygen with spo2 goal 89-91% -Nebs prn/ continue home INH -resp viral panel 04/27: -at baseline oxygen of 4L -continue abx - add solumedrol -resp viral panel negative Code(s): J44.1 - CHRONIC OBSTRUCTIVE PULMONARY DISEASE W (ACUTE) EXACERBATION (2) Venous insufficiency (chronic) (peripheral) Current Visit: No Status: Acute Assessment & Plan: -Podiatry following -plan for unna boots once doppler results obtained -Echo/doppler results at [place] will obtain -wound culture drainage -cefazolin -CBC, CMP -LA, PCT, ESR, CRP -elevate affected limbs -Bumex 04/27: -LA/procal wnl -ESR at 33/CRP pending -Podiatry following - unna boots - doppler obtained from [place] negative -consider art doppler - pt states she has had this testing at [place] - will try to obtain -edema much improved - decrease Bumex to 1mg (3) PVD (peripheral vascular disease) Current Visit: Yes Status: Acute Assessment & Plan: -noted, adds complexity -art duplex Code(s): I73.9 - PERIPHERAL VASCULAR DISEASE, UNSPECIFIED (4) DONATO (obstructive sleep apnea) Current Visit: Yes Status: Acute Assessment & Plan: -does not use CPAP - oxygen only Code(s): G47.33 - OBSTRUCTIVE SLEEP APNEA (ADULT) (PEDIATRIC) (5) HLD (hyperlipidemia) Current Visit: Yes Status: Acute Assessment & Plan: -continue statin Code(s): E78.5 - HYPERLIPIDEMIA, UNSPECIFIED (6) Chronic renal insufficiency Current Visit: No Status: Acute Assessment & Plan: -Follows with Dr. Agustin JAQUEZ -Monitor renal/lytes daily closely with diuresis -Avoid nephrotoxic meds -Baseline creat around (1.3-1.5) - at baseline Code(s): N18.9 - CHRONIC KIDNEY DISEASE, UNSPECIFIED (7) HTN (hypertension) Current Visit: No Status: Acute Assessment & Plan: -Hypertensive on arrival - patient did not take home meds - asymptomatic - will resume home meds Code(s): I10 - ESSENTIAL (PRIMARY) HYPERTENSION (8) Hypothyroidism Current Visit: No Status: Acute Assessment & Plan: -TSH WNL -continue home synthroid Code(s): E03.9 - HYPOTHYROIDISM, UNSPECIFIED (9) Depression Current Visit: No Status: Chronic Assessment & Plan: -Resume home meds VTE: heparin Code status: Full Dispo: 1-2 days Code(s): J44.1 - CHRONIC OBSTRUCTIVE PULMONARY DISEASE W (ACUTE) EXACERBATION (2) Venous insufficiency (chronic) (peripheral) Current Visit: No Status: Acute (3) PVD (peripheral vascular disease) Current Visit: Yes Status: Acute Code(s): I73.9 - PERIPHERAL VASCULAR DISEASE, UNSPECIFIED (4) DONATO (obstructive sleep apnea) Current Visit: Yes Status: Acute Code(s): G47.33 - OBSTRUCTIVE SLEEP APNEA (ADULT) (PEDIATRIC) (5) HLD (hyperlipidemia) Current Visit: Yes Status: Acute Code(s): E78.5 - HYPERLIPIDEMIA, UNSPECIFIED (6) Chronic renal insufficiency Current Visit: No Status: Acute Code(s): N18.9 - CHRONIC KIDNEY DISEASE, UNSPECIFIED (7) HTN (hypertension) Current Visit: No Status: Acute Code(s): I10 - ESSENTIAL (PRIMARY) HYPERTENSION (8) Hypothyroidism Current Visit: No Status: Acute Code(s): E03.9 - HYPOTHYROIDISM, UNSPECIFIED (9) Depression Current Visit: No Status: Chronic Code(s): F32.A - DEPRESSION, UNSPECIFIED
--- NOTE | 2024-04-28 09:20 | PCM.DS ---
Discharge Summary Date of Admission: 04/26/24 15:29 Date of Discharge: 04/28/24 Admitting Physician: MIAH ALVAREZ MD Primary Care Provider: MASSIEL RODRÍGUEZ MD Allergies Allergies amoxicillin Allergy (Unknown, Verified 04/26/24 16:17) Nausea clindamycin Allergy (Unknown, Verified 04/26/24 16:17) Vomiting nitrofurantoin Allergy (Unknown, Verified 04/26/24 16:17) Nausea Sulfa (Sulfonamide Antibiotics) Allergy (Verified 04/26/24 16:17) Nausea vancomycin Allergy (Verified 04/26/24 16:17) IV contrast dye Allergy (Unknown, Uncoded 04/26/24 16:17) Hospital Summary - Hospital Course Hospital Course: is a 88 year old female with a pmhx of COPD (baseline 4L oxygen), DONATO, hypothyroidism, PVD, CKD (patient of Dr. Velez), OA, OP, HTN, and HLD patient of Dr. Mendieta (podiatry) directly admitted for evaluation of BLE edema and increased shortness of breath. Patient reports a one week history of BLE edema with redness and drainage of clear fluid as well as progressive shortness of breath. She generally wears 4l of oxygen at baseline - requiring 5L on presentation. She also endorsed pain with ambulation. She had recent workup at [facility] with an Echo and bilateral lower extremity venous dopplers. Doppler was negative. Upon exam BLE noted with 3+ pitting edema and erythema. No drainage or open wounds noted. Lab findings from 04/25/24 reviewed showing hgb at 10.5 (baseline), creat of 1.45 (baseine 1.3-1.5), troponins wnl, and BNP at 333. Podiatry is following patient. Admission for vensous stasis dermatitis and COPD exacerbation with concern for volume overload. Patient received IV Lasix while IP with noted improvement. Podiatry applied Unna boots with [facility] set up for dressing changes and f/u with podiatry as OP. Dyspnea has improved and now at baseline oxygen of 4L. Will discharge on prednisone burst and keflex. Advised patient to continue holding lisinopril/hctz -increase torsemide home dose to BID dosing. Patient to follow up with PCP/Podiatry as OP. Discharge Note New Diagnosis: COPD exac/ venous stasis New Medications: keflex - increase torsemide to bid dosing, hold lisinopril/hctz Follow Up: PCP/podiatry Outpatient testing to order: Latest Assessment & Plan (1) COPD exacerbation Current Visit: Yes Status: Acute Assessment & Plan: -4L oxygen at baseline now at 5L -CXR -RT eval -supplemental oxygen with spo2 goal 89-91% -Nebs prn/ continue home INH -resp viral panel 04/27: -at baseline oxygen of 4L -continue abx - add solumedrol -resp viral panel negative 04/28: -prednisone burst -continue home oxygen Code(s): J44.1 - CHRONIC OBSTRUCTIVE PULMONARY DISEASE W (ACUTE) EXACERBATION (2) Venous insufficiency (chronic) (peripheral) Current Visit: No Status: Acute Assessment & Plan: -Podiatry following -plan for unna boots once doppler results obtained -Echo/doppler results at [place] will obtain -wound culture drainage -cefazolin -CBC, CMP -LA, PCT, ESR, CRP -elevate affected limbs -Bumex 04/27: -LA/procal wnl -ESR at 33/CRP pending -Podiatry following - unna boots - doppler obtained from [place] negative -consider art doppler - pt states she has had this testing at [place] - will try to obtain -edema much improved - decrease Bumex to 1mg 04/28 -increase home torsemide dose to bid -continue unna boots- podiatry following -HHC to help with dressing changes -Keflex (3) PVD (peripheral vascular disease) Current Visit: Yes Status: Acute Assessment & Plan: -noted, adds complexity -art duplex Code(s): I73.9 - PERIPHERAL VASCULAR DISEASE, UNSPECIFIED (4) DONATO (obstructive sleep apnea) Current Visit: Yes Status: Acute Assessment & Plan: -does not use CPAP - oxygen only Code(s): G47.33 - OBSTRUCTIVE SLEEP APNEA (ADULT) (PEDIATRIC) (5) HLD (hyperlipidemia) Current Visit: Yes Status: Acute Assessment & Plan: -continue statin Code(s): E78.5 - HYPERLIPIDEMIA, UNSPECIFIED (6) Chronic renal insufficiency Current Visit: No Status: Acute Assessment & Plan: -Follows with Dr. Velez OP -Monitor renal/lytes daily closely with diuresis -Avoid nephrotoxic meds -Baseline creat around (1.3-1.5) - at baseline 04/28: -Hold lisinopril/hctz Code(s): N18.9 - CHRONIC KIDNEY DISEASE, UNSPECIFIED (7) HTN (hypertension) Current Visit: No Status: Acute Assessment & Plan: -Hypertensive on arrival - patient did not take home meds - asymptomatic - will resume home meds Code(s): I10 - ESSENTIAL (PRIMARY) HYPERTENSION (8) Hypothyroidism Current Visit: No Status: Acute Assessment & Plan: -TSH WNL -continue home synthroid Code(s): E03.9 - HYPOTHYROIDISM, UNSPECIFIED (9) Depression Current Visit: No Status: Chronic Assessment & Plan: -Resume home meds I spent 35 minutes [id number] with the patient on the day of discharge performing discharge exam, discussing hospital stay and discharge instructions with patient and caregivers, preparation of discharge records, prescriptions & referral forms and addressing any questions/concerns the patient had as documented above. - Vitals & Intake/Output Vital Signs: Vital Signs Temperature 97.7 F 04/28/24 07:12 Pulse Rate 84 04/28/24 08:57 Respiratory Rate 20 04/28/24 08:57 Blood Pressure 134/61 04/28/24 07:12 O2 Sat by Pulse Oximetry 94 L 04/28/24 08:57 Intake & Output: Intake & Output 04/25/24 04/26/24 04/27/24 04/28/24 11:59 11:59 11:59 11:59 Intake Total 740 860 Output Total 2500 1250 Balance -1760 -390 Weight 48.7 kg - Lab Result Diagrams: 04/28/24 04:10 04/28/24 04:10 Lab Results-Last 24 Hrs: Lab Results-Last 24 Hours 04/28/24 04/28/24 Range/Units 04:10 04:10 WBC 7.0 (3.98-10.04) x10^3/uL RBC 3.44 L (3.93-5.22) x10^6/uL Hgb 10.5 L (11.2-15.7) g/dL Hct 32.4 L (34.1-44.9) % MCV 94.2 (79.4-94.8) fL MCH 30.5 (25.6-32.2) pg MCHC 32.4 (32.2-35.5) g/dL RDW 13.8 (11.7-14.4) % Plt Count 244 (182-369) x10^3/uL MPV 11.7 (9.4-12.3) fL Gran % 89.7 H (34.0-71.1) % Immature Gran % (Auto) 0.4 (0.001-0.429) % Nucleat RBC Rel Count 0.0 (0.00-0.2) % Eos # (Auto) 0 L (0.04-0.36) x10^3/uL Immature Gran # (Auto) 0.03 (0.001-0.031) x10^3u/L Absolute Lymphs (auto) 0.62 L (1.18-3.74) x10^3/uL Absolute Monos (auto) 0.07 L (0.24-0.86) x10^3/uL Absolute Nucleated RBC 0.00 (0.00-0.012) x10^3u/L Lymphocytes % 8.8 L (19.3-51.7) % Monocytes % 1.0 L (4.7-12.5) % Eosinophils % 0.0 L (0.7-5.8) % Basophils % 0.1 (0.1-1.2) % Absolute Granulocytes 6.30 H (1.56-6.13) x10^3/uL Basophils # 0.01 (0.01-0.08) x10^3/uL Sodium 138 (135-145) mmol/L Potassium 4.0 (3.5-5.1) mmol/L Chloride 101 (98-107) mmol/L Carbon Dioxide 28 (22-30) mmol/L Anion Gap 13.9 (5-15) MEQ/L BUN 32 H (7-17) mg/dL Creatinine 1.29 H (0.52-1.04) mg/dL Estimated GFR 40.2 ML/MIN Glucose 152 H (74-106) mg/dL Calcium 8.9 (8.4-10.2) mg/dL Total Bilirubin 0.30 (0.2-1.3) mg/dL AST 42 H (14-36) U/L ALT 26 (0-35) U/L Alkaline Phosphatase 60 (38-126) U/L Serum Total Protein 6.3 (6.3-8.2) g/dL Albumin 3.5 (3.5-5.0) g/dL - Radiology Exams Ordered Rad Exams-Entire Visit: Radiology Procedures Category Date Time Status CHEST 2 VIEWS (PA AND LAT) Stat Exams 04/26/24 16:39 Completed - Procedures and Test Procedures and Tests throughout Hospitalization: Therapy Orders & Screens 04/26/24 16:39 Respiratory Therapy Consult ONCE Comment: Reason For Exam: Diagnosis: BLE edema 04/26/24 17:07 Oxygen NASAL CANNULA 4 lpm Comment: Diagnosis: BLE edema 04/26/24 17:08 Respiratory Therapy Assessment DAILY Comment: Diagnosis: BLE edema 04/27/24 13:31 Respiratory MDI UD Comment: Diagnosis: BLE edema Discharge Exam General Appearance: no apparent distress Neurologic Exam: alert, oriented x 3, cooperative Eye Exam: PERRL Ears, Nose, Throat Exam: normal ENT inspection Neck Exam: normal inspection Respiratory Exam: crackles/rales Cardiovascular Exam: regular rate/rhythm, normal heart sounds Gastrointestinal/Abdomen Exam: soft, normal bowel sounds Pelvic Exam: deferred Rectal Exam: deferred Back Exam: normal inspection Extremity Exam: other (BLE with unna boots) Skin Exam: normal color Wound Assessment: Skin/Wound Assessment Wound/Incision Assessment Start: 04/26/24 16:22 Text: Status: Active Freq: Q6H Protocol: Document 04/28/24 08:00 RF (Rec: 04/28/24 09:11 RF [id number]) Wound/Incision Assessment left lower leg Wound Assessment Shift Assessment Comment wrapped in unaboot per podiatry. unable to assess at this time Wound Photo Photo Taken No Final Diagnosis/Problem List - Final Discharge Diagnosis/Problem (1) COPD exacerbation Current Visit: Yes Status: Acute Code(s): J44.1 - CHRONIC OBSTRUCTIVE PULMONARY DISEASE W (ACUTE) EXACERBATION (2) Venous insufficiency (chronic) (peripheral) Current Visit: No Status: Chronic (3) PVD (peripheral vascular disease) Current Visit: Yes Status: Chronic Code(s): I73.9 - PERIPHERAL VASCULAR DISEASE, UNSPECIFIED (4) DONATO (obstructive sleep apnea) Current Visit: Yes Status: Chronic Code(s): G47.33 - OBSTRUCTIVE SLEEP APNEA (ADULT) (PEDIATRIC) (5) HLD (hyperlipidemia) Current Visit: Yes Status: Chronic Code(s): E78.5 - HYPERLIPIDEMIA, UNSPECIFIED (6) Chronic renal insufficiency Current Visit: No Status: Chronic Code(s): N18.9 - CHRONIC KIDNEY DISEASE, UNSPECIFIED (7) HTN (hypertension) Current Visit: No Status: Chronic Code(s): I10 - ESSENTIAL (PRIMARY) HYPERTENSION (8) Hypothyroidism Current Visit: No Status: Chronic Code(s): E03.9 - HYPOTHYROIDISM, UNSPECIFIED (9) Depression Current Visit: No Status: Chronic Code(s): F32.A - DEPRESSION, UNSPECIFIED - Discharge Disposition: Home, Self-Care Condition: Stable Prescriptions: New Cephalexin Mh 500 mg [Keflex 500 mg] 500 mg PO Q6H 7 Days #28 cap predniSONE [Prednisone] 20 mg PO BID 5 Days #10 tablet Continue Pyridoxine HCl 100 mg [Vitamin B-6 (Pyridoxine) 100 MG] 100 mg PO DAILY [place] 3 Polyunsaturated Fatty 1,200 mg PO DAILY Nitroglycerin 0.4 mg Tablet [Nitrostat 0.4 MG Tablet] 0.4 mg SL Q5MIN PRN MR X 3 PRN PRN Reason: Chest Pain Multivitamin with Minerals [Myvitalife] 1 each PO DAILY Levothyroxine Sodium 25 Mcg [Synthroid 25 Mcg] 25 mcg PO DAILY Latanoprost [Xalatan] 1 drop OP HS Lactobacillus Acidophilus [Acidophilus Lactobacilli] 1 each PO DAILY Fluticasone/Umeclidin/Vilanter [Trelegy Ellipta 200-62.5-25] 1 puff IH DAILY Ezetimibe 10 mg [Zetia 10 MG] 10 mg PO DAILY Cyanocobalamin (Vitamin B-12) [Vitamin B-12] 1,000 mcg PO DAILY Cholecalciferol (Vitamin D3) [Weekly-D] 1,250 mcg PO WEEKLY Carvedilol 3.125 mg [Coreg 3.125 MG] 3.125 mg PO BID Atorvastatin Calcium [Lipitor] 5 mg PO 3XW Ascorbic Acid 500 mg [Vitamin C 500 MG] 500 mg PO DAILY Albuterol Sulfate [Proair Digihaler] 2 puffs IH Q6H PRN PRN PRN Reason: Shortness Of Breath/Wheezing Amlodipine Besylate 5 mg [Norvasc 5 mg] 5 mg PO DAILY Desvenlafaxine Succinate [Pristiq] 50 mg PO DAILY Changed Torsemide 10 mg PO BID 30 Days #60 tablet Discontinued Lisinopril/Hydrochlorothiazide [Lisinopril-Hctz 20-25 mg Tab] 0.5 tablet PO DAILY Additional Instructions: [facility] WILL CHANGE [employer] DRESSINGS ON WEDNESDAY Follow up with: FLORY RAMIREZ DPM [ACTIVE STAFF] - 05/01/24 8:00 am MASSIEL RODRÍGUEZ MD [Primary Care Provider] -
[2024-04-28] MEDS: BUMEX 1 MG IV SCH (10:12)
[2024-04-28 11:32] VITALS: BP 162/70; PULSE 76; RESP 18; TEMP 97.4; O2SAT 100
[2024-04-28] MEDS: KEFLEX 500 MG PO SCH (14:58)
[2024-05-01] MEDS ORDERED: VITAMIN D2 PO SCH (10:00)
== END 2024-04-28 15:57 | disposition home health service (06) ==
LOC: MED SURG 15:29
PROVIDERS: ADMIT Internal Medicine; ATTEND Internal Medicine
DX: J44.1 Chronic obstructive pulmonary disease with (acute) exacerbation (principal); R60.0 Localized edema; I87.2 Venous insufficiency (chronic) (peripheral); I73.9 Peripheral vascular disease, unspecified; G47.33 Obstructive sleep apnea (adult) (pediatric); E78.5 Hyperlipidemia, unspecified; I12.9 Hypertensive chronic kidney disease with stage 1 through stage 4 chronic kidney disease, or unspecified chronic kidney disease; N18.9 Chronic kidney disease, unspecified; E03.9 Hypothyroidism, unspecified; F32.A Depression, unspecified; Z99.81 Dependence on supplemental oxygen; Z79.899 Other long term (current) drug therapy
CPT/HCPCS: 0241U; 36415; 71046; 80053; 81001; 83605; 84145; 84443; 85025; 85610; 85652; 85730; 86140; 94640; 94760; Q3014; 93268; G0379; J0690; J1644; J2919; A9270-GY; G0378

== ENCOUNTER 2024-09-07 13:19 | Emergency (ER) | payer MEDICARE ==
--- NOTE | 2024-09-07 13:30 | ERPHSYRPT ---
- History of Present Illness Time Seen by Provider: 09/07/24 13:29 Source: patient Exam Limitations: no limitations Physician History: This is an 88-year-old white female patient who arrives by private vehicle and was sent to the emergency department by nurse practitioner Jay Jay out of [facility] secondary to shortness of breath. Patient was manuel d from that clinic that there is no cardiovascular issue. Patient does have a history of peripheral vascular disease, hypothyroidism, chronic renal disease and depression. Patient has COPD and wears 4 L of oxygen via nasal cannula primarily at night and as needed. Patient states that her shortness of breath has been worsening over the last 4 to 5 days. Patient's peak shortness of breath was last evening. It may have slightly improved today but is still significant and present. Her room air oxygen saturation level here in the emergency department is 94%. She denies chest pain. She denies nausea vomiting and diarrhea symptoms. She has no abdominal pain. Patient states her symptoms are worse with exertion. Timing/Duration: day(s) (4-5), worse (Symptoms worse last night), other (Only mild improvement this morning compared to last night) Severity of Dyspnea-Max: moderate Severity of Dyspnea-Current: mild Possible Cause: occasional episodes Modifying Factors: Improves With: activity, exertion Associated Symptoms: denies symptoms Allergies/Adverse Reactions: amoxicillin Allergy (Unknown, Verified 09/07/24 13:21) Nausea clindamycin Allergy (Unknown, Verified 09/07/24 13:21) Vomiting nitrofurantoin Allergy (Unknown, Verified 09/07/24 13:21) Nausea clonidine Allergy (Verified 09/07/24 13:37) Sulfa (Sulfonamide Antibiotics) Allergy (Verified 09/07/24 13:21) Nausea vancomycin Allergy (Verified 09/07/24 13:21) IV contrast dye Allergy (Unknown, Uncoded 09/07/24 13:21) Home Medications: Albuterol Sulfate [Proair Digihaler] 2 puffs IH Q6H PRN PRN 03/27/23 [History] Ascorbic Acid 500 mg [Vitamin C 500 MG] 500 mg PO DAILY 03/27/23 [History] Atorvastatin Calcium [Lipitor] 5 mg PO 3XW 03/27/23 [History] Carvedilol 3.125 mg [Coreg 3.125 MG] 3.125 mg PO BID 03/27/23 [History] Cholecalciferol (Vitamin D3) [Weekly-D] 1,250 mcg PO WEEKLY 03/27/23 [History] Cyanocobalamin (Vitamin B-12) [Vitamin B-12] 1,000 mcg PO DAILY 03/27/23 [History] Ezetimibe 10 mg [Zetia 10 MG] 10 mg PO DAILY 03/27/23 [History] Fluticasone/Umeclidin/Vilanter [Trelegy Ellipta 200-62.5-25] 1 puff IH DAILY 03/27/23 [History] Lactobacillus Acidophilus [Acidophilus Lactobacilli] 1 each PO DAILY 03/27/23 [History] Latanoprost [Xalatan] 1 drop OP HS 03/27/23 [History] Levothyroxine Sodium 25 Mcg [Synthroid 25 Mcg] 25 mcg PO DAILY 03/27/23 [History] Multivitamin with Minerals [Myvitalife] 1 each PO DAILY 03/27/23 [History] Nitroglycerin 0.4 mg Tablet [Nitrostat 0.4 MG Tablet] 0.4 mg SL Q5MIN PRN MR X 3 PRN 03/27/23 [History] [place] 3 Polyunsaturated Fatty 1,200 mg PO DAILY 03/27/23 [History] Pyridoxine HCl 100 mg [Vitamin B-6 (Pyridoxine) 100 MG] 100 mg PO DAILY 03/27/23 [History] Amlodipine Besylate 5 mg [Norvasc 5 mg] 5 mg PO DAILY 04/26/24 [History] Desvenlafaxine Succinate [Pristiq] 50 mg PO DAILY 04/26/24 [History] Hx Tetanus, Diphtheria Vaccination/Date Given: No Hx Influenza Vaccination/Date Given: Yes Hx Pneumococcal Vaccination/Date Given: No Travel Risk - International Travel Have you traveled outside of the country in past 3 weeks: No - Emerging Infectious Disease Are you exhibiting symptoms associated with any current EIDs: Yes Symptoms: Shortness of Breath - Review of Systems Constitutional: No Symptoms Eyes: No Symptoms Ears, Nose, & Throat: No Symptoms Respiratory: Dyspnea, Dyspnea on Exertion (MAIN) Cardiac: No Symptoms Abdominal/Gastrointestinal: No Symptoms Genitourinary Symptoms: No Symptoms Musculoskeletal: No Symptoms Skin: No Symptoms Neurological: No Symptoms Psychological: No Symptoms Endocrine: No Symptoms Hematologic/Lymphatic: No Symptoms Immunological/Allergic: No Symptoms All Other Systems: Reviewed and Negative - Past Medical History Pertinent Past Medical History: Yes Neurological History: No Pertinent History ENT History: Cataracts Cardiac History: Peripheral Vascular Disease Respiratory History: COPD Endocrine Medical History: Hypothyroidism Musculoskeletal History: Osteoarthritis, Osteoporosis GI Medical History: No Pertinent History History: Renal Disease Psycho-Social History: Depression Female Reproductive Disorders: Other Other Medical History: Bilateral hip replacement, stent LLE - Past Surgical History Past Surgical History: Yes Neuro Surgical History: No Pertinent History Cardiac: Vascular Surgery Respiratory: No Pertinent History Gastrointestinal: No Pertinent History Genitourinary: No Pertinent History Musculoskeletal: Joint Replacement Female Surgical History: Hysterectomy Other Surgical History: bladder tuck, bilateral hip replacement, stent LLE - Social History Smoking Status: Former smoker Exposure to second hand smoke: No Drug Use: none - Social Determinants of Health Will the patient participate in the screening: Yes Do you worry about a steady place to live?: No In the past 12 months,have you had to go without utilities?: No Transportation Issues: No Has anyone in your support network made you feel unsafe?: No Have you or anyone in your house had to go w/o enough food: No Comment: Would like a different home health agency than what she currently utilizes at home. Discharge planning ([facility]) updated. - Nursing Vital Signs Nursing Vital Signs: Initial Vital Signs Temperature 98 F 09/07/24 13:20 Pulse Rate 77 09/07/24 13:20 Respiratory Rate 19 09/07/24 13:20 Blood Pressure 155/88 09/07/24 13:20 O2 Sat by Pulse Oximetry 94 L 09/07/24 13:20 Pain Scale Pain Intensity 0 - Physical Exam General Appearance: no apparent distress, alert, anxiety, thin Eye Exam: PERRL/EOMI, eyes nml inspection Ears, Nose, Throat Exam: hearing grossly normal, normal ENT inspection, normal pharynx Neck Exam: normal inspection, non-tender, supple, full range of motion Respiratory Exam: normal breath sounds, lungs clear, airway intact, No chest tenderness, No respiratory distress Cardiovascular/Chest Exam: normal heart sounds, regular rate/rhythm, normal peripheral pulses Abdominal/Gastrointestinal Exam: soft, normal bowel sounds, No tenderness Rectal Exam: not done Extremity Exam: non-tender, normal range of motion, normal inspection Neurologic Exam: alert, oriented x 3, cooperative, international project engineer II-XII nml as tested, nml cerebellar function, nml station & gait, sensation nml Skin Exam: normal color, warm, dry Lymphatic Exam: No adenopathy SpO2 Interpretation: normal O2 Delivery: Room Air - Course Nursing assessment & vital signs reviewed: Yes EKG Interpreted by Me: RATE (75), Sinus Rhythm, NORMAL AXIS, NORMAL INTERVALS, NORMAL QRS, Other (No acute ischemia. QTc is 455) Ordered Tests: Active Orders 24 hr Category Date Time Status EKG-ER Only STAT Care 09/07/24 13:37 Active IV Insertion STAT Care 09/07/24 13:37 Active Pulse Oximetry (ED) STAT Care 09/07/24 13:37 Active CHEST 1 VIEW (PORTABLE) Stat Exams 09/07/24 16:03 Completed BLOOD CULTURE Stat Lab 09/07/24 15:15 Received CBC W DIFF Stat Lab 09/07/24 15:15 Completed CMP Stat Lab 09/07/24 05:15 Completed Lactic Acid Stat Lab 09/07/24 15:34 Completed MAGNESIUM Stat Lab 09/07/24 05:15 Completed NT PRO BNPII Stat Lab 09/07/24 05:15 Completed TROPONIN Q4H Lab 09/07/24 15:15 Completed TROPONIN Q4H Lab 09/07/24 17:45 Ordered TROPONIN Q4H Lab 09/07/24 21:45 Ordered Lab/Rad Data: Laboratory Result Diagrams 09/07/24 15:15 09/07/24 05:15 Laboratory Results 09/07/24 09/07/24 09/07/24 Range/Units 15:34 15:15 15:15 WBC (3.98-10.04) x10^3/uL RBC (3.93-5.22) x10^6/uL Hgb (11.2-15.7) g/dL Hct (34.1-44.9) % MCV (79.4-94.8) fL MCH (25.6-32.2) pg MCHC (32.2-35.5) g/dL RDW (11.7-14.4) % Plt Count (182-369) x10^3/uL MPV (9.4-12.3) fL Gran % (34.0-71.1) % Immature Gran % (Auto) (0.001-0.429) % Nucleat RBC Rel Count (0.00-0.2) % Eos # (Auto) (0.04-0.36) x10^3/uL Immature Gran # (Auto) (0.001-0.031) x10^3u/L Absolute Lymphs (auto) (1.18-3.74) x10^3/uL Absolute Monos (auto) (0.24-0.86) x10^3/uL Absolute Nucleated RBC (0.00-0.012) x10^3u/L Lymphocytes % (19.3-51.7) % Monocytes % (4.7-12.5) % Eosinophils % (0.7-5.8) % Basophils % (0.1-1.2) % Absolute Granulocytes (1.56-6.13) x10^3/uL Basophils # (0.01-0.08) x10^3/uL Sodium (135-145) mmol/L Potassium (3.5-5.1) mmol/L Chloride (98-107) mmol/L Carbon Dioxide (22-30) mmol/L Anion Gap (5-15) MEQ/L BUN (7-17) mg/dL Creatinine (0.52-1.04) mg/dL Estimated GFR ML/MIN Glucose (74-106) mg/dL Lactic Acid 1.5 (0.4-2.0) Calcium (8.4-10.2) mg/dL Magnesium (1.6-2.3) mg/dL Total Bilirubin (0.2-1.3) mg/dL AST (14-36) U/L ALT (0-35) U/L Alkaline Phosphatase (38-126) U/L Troponin I < 0.012 (0.000-0.033) ng/mL NT-Pro-B Natriuret Pep (<300) pg/mL Serum Total Protein (6.3-8.2) g/dL Albumin (3.5-5.0) g/dL Influenza Type A Ag NEGATIVE (NEGATIVE) Influenza Type B Ag NEGATIVE (NEGATIVE) RSV (PCR) NEGATIVE (NEGATIVE) SARS-CoV-2 (PCR) NEGATIVE (NEGATIVE) 09/07/24 09/07/24 Range/Units 15:15 05:15 WBC 5.8 (3.98-10.04) x10^3/uL RBC 4.62 (3.93-5.22) x10^6/uL Hgb 13.8 (11.2-15.7) g/dL Hct 42.7 (34.1-44.9) % MCV 92.4 (79.4-94.8) fL MCH 29.9 (25.6-32.2) pg MCHC 32.3 (32.2-35.5) g/dL RDW 15.0 H (11.7-14.4) % Plt Count 204 (182-369) x10^3/uL MPV 10.8 (9.4-12.3) fL Gran % 69.8 (34.0-71.1) % Immature Gran % (Auto) 0.3 (0.001-0.429) % Nucleat RBC Rel Count 0.0 (0.00-0.2) % Eos # (Auto) 0.02 L (0.04-0.36) x10^3/uL Immature Gran # (Auto) 0.02 (0.001-0.031) x10^3u/L Absolute Lymphs (auto) 1.21 (1.18-3.74) x10^3/uL Absolute Monos (auto) 0.49 (0.24-0.86) x10^3/uL Absolute Nucleated RBC 0.00 (0.00-0.012) x10^3u/L Lymphocytes % 20.9 (19.3-51.7) % Monocytes % 8.4 (4.7-12.5) % Eosinophils % 0.3 L (0.7-5.8) % Basophils % 0.3 (0.1-1.2) % Absolute Granulocytes 4.04 (1.56-6.13) x10^3/uL Basophils # 0.02 (0.01-0.08) x10^3/uL Sodium 139 (135-145) mmol/L Potassium 3.2 L (3.5-5.1) mmol/L Chloride 95 L (98-107) mmol/L Carbon Dioxide 36 H (22-30) mmol/L Anion Gap 10.2 (5-15) MEQ/L BUN 32 H (7-17) mg/dL Creatinine 1.47 H (0.52-1.04) mg/dL Estimated GFR 34.3 ML/MIN Glucose 126 H (74-106) mg/dL Lactic Acid (0.4-2.0) Calcium 9.2 (8.4-10.2) mg/dL Magnesium 2.1 (1.6-2.3) mg/dL Total Bilirubin 0.70 (0.2-1.3) mg/dL AST 56 H (14-36) U/L ALT 28 (0-35) U/L Alkaline Phosphatase 71 (38-126) U/L Troponin I (0.000-0.033) ng/mL NT-Pro-B Natriuret Pep 148 (<300) pg/mL Serum Total Protein 7.5 (6.3-8.2) g/dL Albumin 4.4 (3.5-5.0) g/dL Influenza Type A Ag (NEGATIVE) Influenza Type B Ag (NEGATIVE) RSV (PCR) (NEGATIVE) SARS-CoV-2 (PCR) (NEGATIVE) - Progress Progress: improved, re-examined Air Movement: good Progress Note: 09/07/24 14:04 My medical decision making and the assignment of moderate complexity to this patient's medical issue today is based on review of the patient's past medical history, review of the patient's medication list, reviewed patient drug allergy list, history present illness and physical findings on examination. The workup in this patient includes placement of a intravenous line, chest x-ray, twelve- lead EKG, CBC, CMP, BNP, troponin level, viral swabs. Differential diagnosis includes but is not limited to CHF, COPD exacerbation, pneumonia, myocardial infarction, arrhythmias, electrolyte abnormalities 09/07/24 14:53 The patient is refusing a new chest x-ray. Patient states that she just had a chest x-ray performed yesterday by her primary care provider. We requested the copy of the results. I reviewed the outside chest x-ray impression that was read by the radiologist. There is no evidence of any acute cardiopulmonary process. 09/07/24 16:37 I interpreted the patient's laboratory data results. Based on the laboratory data results the only abnormality of significance is a low potassium 3.2. Will provide the patient with potassium supplementation. I interpreted the patient's preliminary chest x-ray report. When compared to pr ior chest x-ray, today's chest x-ray shows a questionable bilateral perihilar atelectasis versus early infiltrate and chronic COPD changes. Blood Culture(s) Obtained: Yes Antibiotics given: Yes Counseled pt/family regarding: lab results, diagnosis, rad results Medical Desision Making - Diagnostic Testing Diagnostic test were ordered, analyzed, and reviewed by me: Yes Radiological Interpretation: Interpreted by me, Teleradiologist Report - Risk of complications The pt has a mod risk of morbidity or mortality based on: Need for prescription drug management - Departure Departure Disposition: Home Clinical Impression: COPD exacerbation, Hypokalemia, Pulmonary infiltrate on chest x-ray Condition: Stable Critical Care Time: No Referrals: MASSIEL RODRÍGUEZ MD [Primary Care Provider] - Follow up/PCP as directed Instructions: Chronic Obstructive Pulmonary Disease Additional Instructions: Take your medications as prescribed. Call your primary care provider tomorrow, 09/08/2024, to make arrangements for follow-up appointment for further evaluation management. Prescriptions: Levofloxacin [Levofloxacin 250MG Tablet] 250 mg PO DAILY #6 tab
[2024-09-07 13:46] VITALS: TEMP 98
[2024-09-07 15:14] LABS: Absolute Neutrophil Ct (ANC) 4.04 x10^3/uL (1.56-6.13); BASOPHIL % 0.3 % (0.1-1.2); Basophil (Absolute #) 0.02 x10^3/uL (0.01-0.08); Eosinophil % 0.3 % (0.7-5.8); Eosinophil (Absolute #) 0.02 x10^3/uL (0.04-0.36); Hematocrit 42.7 % (34.1-44.9); Hemoglobin 13.8 g/dL (11.2-15.7); IMMATURE GRAN # 0.02 x10^3u/L (0.001-0.031); IMMATURE GRAN % 0.3 % (0.001-0.429); Lymphocyte (Absolute #) 1.21 x10^3/uL (1.18-3.74); Lymphocytes % 20.9 % (19.3-51.7); Mean Cell Volume 92.4 fL (79.4-94.8); Mean Corpuscular Hemoglobin 29.9 pg (25.6-32.2); Mean Corpuscular Hgb Concent. 32.3 g/dL (32.2-35.5); Mean Platelet Volume 10.8 fL (9.4-12.3); Monocyte (Absolute #) 0.49 x10^3/uL (0.24-0.86); Monocytes % 8.4 % (4.7-12.5); Neutrophil % 69.8 % (34.0-71.1); Platelet Count 204 x10^3/uL (182-369); Red Blood Count 4.62 x10^6/uL (3.93-5.22); White Blood Count 5.8 x10^3/uL (3.98-10.04)
[2024-09-07 15:34] LABS: ALBUMIN 4.4 g/dL (3.5-5.0); ANION GAP 10.2 MEQ/L (5-15); BILIRUBIN,TOTAL 0.7 mg/dL (0.2-1.3); Calcium 9.2 mg/dL (8.4-10.2); Creatinine 1 1.47 mg/dL (0.52-1.04); EST GLOMERULAR FILTRATION RATE 34.3 ML/MIN; MAGNESIUM 2.1 mg/dL (1.6-2.3); Potassium 3.2 mmol/L (3.5-5.1); Total Protein 7.5 g/dL (6.3-8.2)
[2024-09-07 16:10] LABS: INFLUENZA A NEGATIVE (NEGATIVE); INFLUENZA B NEGATIVE (NEGATIVE); RESPIRATORY SYNCTIAL VIRUS NEGATIVE (NEGATIVE); SARS-CoV-2 Xpert Express NEGATIVE (NEGATIVE)
--- NOTE | 2024-09-07 16:36 | XRAY ---
Indication: Short of breath. Cough. Comparison: April 26, 2024 Portable chest again hyperinflated and clear with a few incidental tiny calcified granulomas. Heart not enlarged. Bony thorax intact again with osteopenia and mild degenerative changes. No new/acute findings.
[2024-09-07] MEDS ORDERED: Klor Con ONE (16:50)
[2024-09-07] MEDS ORDERED: Levofloxacin 500 MG Tablet ONE (16:50)
[2024-09-07 16:51] VITALS: BP 116/83; PULSE 81; RESP 23; O2SAT 100
[2024-09-07] MEDS: Levofloxacin 500 MG Tablet PO ONE (17:01)
[2024-09-07] MEDS: Klor Con PO ONE (17:02)
== END 2024-09-07 17:27 | disposition home or self-care (01) ==
LOC: ED 13:19
DX: J44.1 Chronic obstructive pulmonary disease with (acute) exacerbation (principal); E87.6 Hypokalemia; R91.8 Other nonspecific abnormal finding of lung field; R06.02 Shortness of breath; Z79.899 Other long term (current) drug therapy
CPT/HCPCS: 0241U; 36415; 71045; 80053; 83605; 83735; 83880; 84484; 85025; 87040; 93005; 94760; 99285; 99284; A9270-GY

== ENCOUNTER 2024-11-15 13:19 | Emergency (ER) | payer MEDICARE ==
[2024-11-15 13:37] VITALS: BP 191/85; O2SAT 96
[2024-11-15 13:41] VITALS: PULSE 90; RESP 18; TEMP 98.2
--- NOTE | 2024-11-15 14:03 | ERPHSYRPT ---
- History of Present Illness Source: patient Exam Limitations: no limitations Patient Subjective Stated Complaint: C/O increased edema to RLE; weeping Triage Nursing Assessment: Patient ambulated back to ER. She is alert and oriented. Edema is present to BLE. Dressing noted to back of RLE. Dressing is saturated; removed. Back of right leg is noted to be weeping but unable to determine where; can't find any breaks in her skin. No weeping noted to LLE. Physician History: Patient has chronic lower extremity edema. She does wraps at home and elevates takes [place] [employer]. She got concerned because one of the leg started weeping today. It is coming from the posterior break in the skin.She had this happen once before but it was because of cellulitis. They were worried about cellulitis. She does not have any fever or chills and there is no evidence of cellulitis. She is with her home health care nurse who knows how to do lower extremity wraps. Nothing is really out of the ordinary except for it started leaking. She said that the swelling need is not even as bad as it has been in the past Occurred: just prior to arrival Allergies/Adverse Reactions: amoxicillin Allergy (Unknown, Verified 11/15/24 13:28) Nausea clindamycin Allergy (Unknown, Verified 11/15/24 13:28) Vomiting nitrofurantoin Allergy (Unknown, Verified 11/15/24 13:28) Nausea clonidine Allergy (Verified 11/15/24 13:28) Sulfa (Sulfonamide Antibiotics) Allergy (Verified 11/15/24 13:28) Nausea vancomycin Allergy (Verified 11/15/24 13:28) IV contrast dye Allergy (Unknown, Uncoded 11/15/24 13:28) Home Medications: Albuterol Sulfate [Proair Digihaler] 2 puffs IH Q6H PRN PRN 03/27/23 [History] Ascorbic Acid 500 mg [Vitamin C 500 MG] 500 mg PO DAILY 03/27/23 [History] Atorvastatin Calcium [Lipitor] 5 mg PO 3XW 03/27/23 [History] Carvedilol 3.125 mg [Coreg 3.125 MG] 3.125 mg PO BID 03/27/23 [History] Cholecalciferol (Vitamin D3) [Weekly-D] 1,250 mcg PO WEEKLY 03/27/23 [History] Cyanocobalamin (Vitamin B-12) [Vitamin B-12] 1,000 mcg PO DAILY 03/27/23 [History] Ezetimibe 10 mg [Zetia 10 MG] 10 mg PO DAILY 03/27/23 [History] Fluticasone/Umeclidin/Vilanter [Trelegy Ellipta 200-62.5-25] 1 puff IH DAILY 03/27/23 [History] Lactobacillus Acidophilus [Acidophilus Lactobacilli] 1 each PO DAILY 03/27/23 [History] Latanoprost [Xalatan] 1 drop OP HS 03/27/23 [History] Levothyroxine Sodium 25 Mcg [Synthroid 25 Mcg] 25 mcg PO DAILY 03/27/23 [History] Multivitamin with Minerals [Myvitalife] 1 each PO DAILY 03/27/23 [History] Nitroglycerin 0.4 mg Tablet [Nitrostat 0.4 MG Tablet] 0.4 mg SL Q5MIN PRN MR X 3 PRN 03/27/23 [History] [place] 3 Polyunsaturated Fatty 1,200 mg PO DAILY 03/27/23 [History] Pyridoxine HCl 100 mg [Vitamin B-6 (Pyridoxine) 100 MG] 100 mg PO DAILY 03/27/23 [History] Amlodipine Besylate 5 mg [Norvasc 5 mg] 5 mg PO DAILY 04/26/24 [History] Desvenlafaxine Succinate [Pristiq] 50 mg PO DAILY 04/26/24 [History] Hx Tetanus, Diphtheria Vaccination/Date Given: No Hx Influenza Vaccination/Date Given: Yes Hx Pneumococcal Vaccination/Date Given: No Immunizations Up to Date: Yes Travel Risk - International Travel Have you traveled outside of the country in past 3 weeks: No - Emerging Infectious Disease Are you exhibiting symptoms associated with any current EIDs: No Symptoms: Shortness of Breath - Review of Systems Constitutional: No Symptoms Eyes: No Symptoms Skin: No Symptoms Neurological: No Symptoms All Other Systems: Reviewed and Negative - Past Medical History Pertinent Past Medical History: Yes Neurological History: No Pertinent History ENT History: Cataracts Cardiac History: Peripheral Vascular Disease Respiratory History: COPD Endocrine Medical History: Hypothyroidism Musculoskeletal History: Osteoarthritis, Osteoporosis GI Medical History: No Pertinent History History: Renal Disease Psycho-Social History: Depression Female Reproductive Disorders: Other - Past Surgical History Past Surgical History: Yes Neuro Surgical History: No Pertinent History Cardiac: Vascular Surgery Respiratory: No Pertinent History Gastrointestinal: No Pertinent History Genitourinary: No Pertinent History Musculoskeletal: Joint Replacement Female Surgical History: Hysterectomy Other Surgical History: bladder tuck, bilateral hip replacement, stent LLE - Social History Smoking Status: Former smoker Exposure to second hand smoke: No Drug Use: none - Social Determinants of Health Will the patient participate in the screening: Yes Do you worry about a steady place to live?: No Do you have any problems with any of the following?: No known problems In the past 12 months,have you had to go without utilities?: No Transportation Issues: No Has anyone in your support network made you feel unsafe?: No Have you or anyone in your house had to go w/o enough food: No - Nursing Vital Signs Nursing Vital Signs: Initial Vital Signs Temperature 98.2 F 11/15/24 13:30 Pulse Rate 90 11/15/24 13:30 Respiratory Rate 18 11/15/24 13:30 Blood Pressure 191/85 11/15/24 13:30 O2 Sat by Pulse Oximetry 97 11/15/24 13:30 Pain Scale Pain Intensity 0 - Physical Exam General Appearance: no apparent distress Cardiovascular/Respiratory Exam: chest non-tender, normal breath sounds, regular rate/rhythm Knees Exam: bilateral knee: swelling (Patient has edema bilaterally. There is some weeping out of the right leg. There is no evidence of cellulitis. Pitting edema is about 3+ on the right 2+ on the left) Ankle Exam: bilateral ankle: swelling SpO2: 96 - Course Nursing assessment & vital signs reviewed: Yes - Progress Progress: unchanged, improved Progress Note: Patient was stable throughout stay. There is no need to treat for infection. There is no evidence of infection. I believe this is just a chronic problem and the skin broke down and started weeping. What we did was we went ahead and put a bulky 4 x 4 pad on and then wrapped with an Antony wrap. She is to rest ice and elevate change the dressing as needed and resume her usual leg care 11/15/24 14:01 Medical Desision Making - Independent Historian Additional History obtained from: Cam Specialist - Risk of complications Minimal Risk: Minimal risk of morbidity - Departure Departure Disposition: Home Clinical Impression: Venous insufficiency (chronic) (peripheral), Swelling of lower extremity, Chronic renal insufficiency Condition: Stable Critical Care Time: No Referrals: MASSIEL RODRÍGUEZ MD [Primary Care Provider, [facility]] - Follow up/PCP as directed Instructions: Peripheral Edema -- Bilateral
== END 2024-11-15 14:15 | disposition home or self-care (01) ==
LOC: ED 13:19
DX: I87.2 Venous insufficiency (chronic) (peripheral) (principal); R60.0 Localized edema; N18.9 Chronic kidney disease, unspecified; Z79.899 Other long term (current) drug therapy
CPT/HCPCS: 99282

== ENCOUNTER 2024-11-26 14:27 | Emergency (ER) | payer MEDICARE ==
--- NOTE | 2024-11-26 14:59 | ERPHSYRPT ---
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 She is also short of breath but that is usual for her. She denies any chest pain nausea vomiting headache dizziness or syncopal episode. She follows pack changer as well as counselor aide for her heart and kidney problems. She is now homebound because of her multiple ailments and she is getting physical therapy and Occupational Therapy at home. Timing/Duration: week(s) Associated Symptoms: shortness of breath Allergies/Adverse Reactions: amoxicillin Allergy (Unknown, Verified 11/26/24 14:37) Nausea clindamycin Allergy (Unknown, Verified 11/26/24 14:37) Vomiting nitrofurantoin Allergy (Unknown, Verified 11/26/24 14:37) Nausea clonidine Allergy (Verified 11/26/24 14:37) Sulfa (Sulfonamide Antibiotics) Allergy (Verified 11/26/24 14:37) Nausea vancomycin Allergy (Verified 11/26/24 14:37) IV contrast dye Allergy (Unknown, Uncoded 11/26/24 14:37) Home Medications: Albuterol Sulfate [Proair Digihaler] 2 puffs IH Q6H PRN PRN 03/27/23 [History] Ascorbic Acid 500 mg [Vitamin C 500 MG] 500 mg PO DAILY 03/27/23 [History] Atorvastatin Calcium [Lipitor] 5 mg PO 3XW 03/27/23 [History] Carvedilol 3.125 mg [Coreg 3.125 MG] 3.125 mg PO BID 03/27/23 [History] Cholecalciferol (Vitamin D3) [Weekly-D] 1,250 mcg PO WEEKLY 03/27/23 [History] Cyanocobalamin (Vitamin B-12) [Vitamin B-12] 1,000 mcg PO DAILY 03/27/23 [History] Ezetimibe 10 mg [Zetia 10 MG] 10 mg PO DAILY 03/27/23 [History] Fluticasone/Umeclidin/Vilanter [Trelegy Ellipta 200-62.5-25] 1 puff IH DAILY 03/27/23 [History] Lactobacillus Acidophilus [Acidophilus Lactobacilli] 1 each PO DAILY 03/27/23 [History] Latanoprost [Xalatan] 1 drop OP HS 03/27/23 [History] Levothyroxine Sodium 25 Mcg [Synthroid 25 Mcg] 25 mcg PO DAILY 03/27/23 [History] Multivitamin with Minerals [Myvitalife] 1 each PO DAILY 03/27/23 [History] Nitroglycerin 0.4 mg Tablet [Nitrostat 0.4 MG Tablet] 0.4 mg SL Q5MIN PRN MR X 3 PRN 03/27/23 [History] [place] 3 Polyunsaturated Fatty 1,200 mg PO DAILY 03/27/23 [History] Pyridoxine HCl 100 mg [Vitamin B-6 (Pyridoxine) 100 MG] 100 mg PO DAILY 03/27/23 [History] Amlodipine Besylate 5 mg [Norvasc 5 mg] 5 mg PO DAILY 04/26/24 [History] Desvenlafaxine Succinate [Pristiq] 50 mg PO DAILY 04/26/24 [History] Hx Tetanus, Diphtheria Vaccination/Date Given: No Hx Influenza Vaccination/Date Given: Yes Hx Pneumococcal Vaccination/Date Given: No Travel Risk - Emerging Infectious Disease Are you exhibiting symptoms associated with any current EIDs: No Symptoms: Shortness of Breath - Review of Systems Constitutional: No Fever, No Chills Eyes: No Symptoms Ears, Nose, & Throat: No Symptoms Respiratory: Dyspnea, Dyspnea on Exertion (MAIN), No Cough Cardiac: Edema, No Chest Pain, No Syncope Abdominal/Gastrointestinal: No Abdominal Pain, No Nausea, No Vomiting, No Diarrhea Genitourinary Symptoms: No Dysuria Musculoskeletal: Arthralgias, No Back Pain, No Neck Pain Skin: Other (bilateral leg edema), No Rash Neurological: No Dizziness, No Focal Weakness, No Sensory Changes Psychological: No Symptoms Endocrine: No Symptoms All Other Systems: Reviewed and Negative - Past Medical History Pertinent Past Medical History: Yes Neurological History: No Pertinent History ENT History: Cataracts Cardiac History: Peripheral Vascular Disease Respiratory History: COPD Endocrine Medical History: Hypothyroidism Musculoskeletal History: Osteoarthritis, Osteoporosis GI Medical History: No Pertinent History History: Renal Disease Psycho-Social History: Depression Female Reproductive Disorders: Other - Past Surgical History Past Surgical History: Yes Neuro Surgical History: No Pertinent History Cardiac: Vascular Surgery Respiratory: No Pertinent History Gastrointestinal: No Pertinent History Genitourinary: No Pertinent History Musculoskeletal: Joint Replacement Female Surgical History: Hysterectomy Other Surgical History: bladder tuck, bilateral hip replacement, stent LLE - Social History Smoking Status: Former smoker Exposure to second hand smoke: No Drug Use: none - Social Determinants of Health Will the patient participate in the screening: Yes Do you worry about a steady place to live?: No In the past 12 months,have you had to go without utilities?: No Transportation Issues: No Has anyone in your support network made you feel unsafe?: No Have you or anyone in your house had to go w/o enough food: No - Physical Exam General Appearance: no apparent distress, alert Eye Exam: PERRL/EOMI, eyes nml inspection Ears, Nose, Throat Exam: normal ENT inspection, TMs normal, pharynx normal, moist mucous membranes Neck Exam: normal inspection, non-tender, supple, full range of motion Respiratory Exam: diminished breath sounds, crackles/rales, rhonchi, No respiratory distress Cardiovascular Exam: irregular, capillary refill >3 sec, edema Gastrointestinal/Abdomen Exam: soft, normal bowel sounds, No tenderness, No mass Back Exam: normal inspection, normal range of motion, No CVA tenderness, No vertebral tenderness Extremity Exam: normal inspection, normal range of motion, pelvis stable Neurologic Exam: alert, oriented x 3, cooperative, normal mood/affect, nml cerebellar function, nml station & gait, sensation nml, No motor deficits Skin Exam: normal color, warm, dry, No rash Lymphatic Exam: No adenopathy - Course Nursing assessment & vital signs reviewed: Yes - Progress Progress: unchanged Counseled pt/family regarding: diagnosis, need for follow-up - Departure Departure Disposition: Home Clinical Impression: Venous insufficiency (chronic) (peripheral), PVD (peripheral vascular disease) Acute on chronic renal failure Qualifiers: Acute renal failure type: unspecified Chronic kidney disease stage: stage 4 (GFR 15-29) Qualified Code(s): N17.9 - Acute kidney failure, unspecified; N18.4 - Chronic kidney disease, stage 4 (severe) CHF (congestive heart failure), NYHA class III Qualifiers: Congestive heart failure type: combined Congestive heart failure chronicity: chronic Qualified Code(s): I50.42 - Chronic combined systolic (congestive) and diastolic (congestive) heart failure Condition: Stable Critical Care Time: No Referrals: MASSIEL RODRÍGUEZ MD [Primary Care Provider, [facility]] - Follow up/PCP as directed Instructions: Peripheral Edema -- Bilateral, Dependent Edema (DC), Heart Failure, Chronic kidney disease Additional Instructions: Discharge/Care Plan DAVID HARPER was seen on 11/26/24 in the Emergency Room. The patient was counseled regarding Diagnosis,Lab results, Imaging studies, need for follow up and when to return to the Emergency Room. Prescriptions given: Discharge Note I have spoken with the patient and/or caregivers. I have explained the patient's condition, diagnosis and treatment plan based on the information available to me at this time. I have answered the patient's and/or caregiver's questions and addressed any concerns. The patient and/or caregivers have as good understanding of the patient's diagnosis, condition and treatment plan as can be expected at this point. The vital signs have been stable. The patient's condition is stable and appropriate for discharge from the emergency department. The patient will pursue further outpatient evaluation with the primary care physician or other designated or consulting physician as outlined in the discharge instructions. The patient and/or caregivers are agreeable to this plan of care and follow-up instructions have been explained in detail. The patient and/or caregivers have received these instruction. The patient/and or caregivers are aware that any significant change in condition or worsening of symptoms should prompt an immediate return to this or the closest emergency department or call 911. DAVID HARPER was seen on 11/26/24 n the Emergency Room. At that time you were treated for an emergent condition, during your visit Laboratory, Radiology and/or other procedures may have been ordered. It is very important that you follow-up with your Primary Care Physician MASSIEL RODRÍGUEZ MD within the next 24-48 hours to review your Emergency Room visit and the final results of testing that was ordered. Some test results such as Urine Cultures, Blood Cultures, and other cultures if ordered will not be finalized for 24-48 hours. If you do not have a Primary Care Provider please call the medical records department at [phone] ext [phone] to obtain a copy of your results or you may sign into our patient portal to obtain these results by visiting us @ [email or web address] and completing the following steps: 1. Click on the Patient Portal link 2. Click the Patient Self Enrollment Link to complete the enrollment form and entering your 3. Once the enrollment form is completed you will receive an email with a temporary ID and password at the email address you provided. 4. Next choose a user name and password. Your user name must be at least 4 characters long and your password must be at least 4 characters long. 5. Choose a security question from the list and provide your answer to the question. If you already have signed into the Health Portal you may access your Health Care Information 15/02 by the following steps: 1. Login to our website @ [email or web address] 2. Enter your original user name and password. FAQS The [facility] Health Portal is an online tool that contains your Lab Results, Radiology Reports, Visit History, Discharge Instructions and Health Summary Lab and Radiology Results will not be available for 72 hours on the portal. The Portal is a secure site, passwords are encryted and URLs are re-written so they cannot be copied and pasted. You and authorized family members are the only ones who can access your Portal. Also there is a timeout feature that protects your information if you leave the Portal page open. If you have technical difficulty please use the Contact Us link on the page this will allow you to submit any questions you have regarding the Portal or you may contact the Medical Record Department at [phone] ext [phone].
[2024-11-26 15:11] VITALS: RESP 17; TEMP 97.7
[2024-11-26 15:12] VITALS: BP 167/80; PULSE 80; O2SAT 98
== END 2024-11-26 15:25 | disposition home or self-care (01) ==
LOC: ED 14:27
DX: I87.2 Venous insufficiency (chronic) (peripheral) (principal); I73.9 Peripheral vascular disease, unspecified; N17.9 Acute kidney failure, unspecified; I13.0 Hypertensive heart and chronic kidney disease with heart failure and stage 1 through stage 4 chronic kidney disease, or unspecified chronic kidney disease; N18.4 Chronic kidney disease, stage 4 (severe); I50.42 Chronic combined systolic (congestive) and diastolic (congestive) heart failure; M79.89 Other specified soft tissue disorders; Z79.899 Other long term (current) drug therapy
CPT/HCPCS: 99281

== ENCOUNTER 2024-12-12 11:08 | Emergency (ER) | payer MEDICARE ==
[2024-12-12] MEDS ORDERED: Lasix 40 MG/4 ML ONE (12:01)
[2024-12-12] MEDS: Lasix 40 MG/4 ML IV ONE (12:01)
[2024-12-12 12:08] LABS: Absolute Neutrophil Ct (ANC) 5.42 x10^3/uL (1.56-6.13); BASOPHIL % 0.1 % (0.1-1.2); Basophil (Absolute #) 0.01 x10^3/uL (0.01-0.08); Eosinophil (Absolute #) 0 x10^3/uL (0.04-0.36); Hematocrit 39.6 % (34.1-44.9); Hemoglobin 12.8 g/dL (11.2-15.7); IMMATURE GRAN # 0.02 x10^3u/L (0.001-0.031); IMMATURE GRAN % 0.3 % (0.001-0.429); Lymphocyte (Absolute #) 0.83 x10^3/uL (1.18-3.74); Lymphocytes % 11.7 % (19.3-51.7); Mean Cell Volume 93.8 fL (79.4-94.8); Mean Corpuscular Hemoglobin 30.3 pg (25.6-32.2); Mean Corpuscular Hgb Concent. 32.3 g/dL (32.2-35.5); Mean Platelet Volume 11.6 fL (9.4-12.3); Monocyte (Absolute #) 0.82 x10^3/uL (0.24-0.86); Monocytes % 11.5 % (4.7-12.5); Neutrophil % 76.4 % (34.0-71.1); Platelet Count 258 x10^3/uL (182-369); Red Blood Count 4.22 x10^6/uL (3.93-5.22); Red Cell Distribution Width 14.2 % (11.7-14.4); White Blood Count 7.1 x10^3/uL (3.98-10.04)
[2024-12-12 12:20] LABS: ANION GAP 11.1 MEQ/L (5-15); Calcium 9.3 mg/dL (8.4-10.2); Creatinine 1 1.21 mg/dL (0.52-1.04); EST GLOMERULAR FILTRATION RATE 43.1 ML/MIN
--- NOTE | 2024-12-12 13:23 | ERPHSYRPT ---
- History of Present Illness Source: patient Exam Limitations: no limitations Patient Subjective Stated Complaint: c/o hypertension Triage Nursing Assessment: patient brought into ED by friend with c/o hypertenion. patient had a BP of 208/106 at home. patient stated she didn't take another BP med. patient denies any chest pain or dizziness, patient stated that she had right arm pain that was dull yesterday. hypertensive, brought in by wheelchair, skin wnl, pulses normal, cap refil <3 seconds, patient doesn't appear to be in any distress at this time. Physician History: Patient had a history of high blood pressure at home. It was around 210 systolic. She was not have any symptoms.She takes carvedilol and hydrochlorothiazide and torsemide. She does not take the furosemide yet today or the hydrochlorothiazide. She has no chest pain or dizziness or other symptoms. It was just a random blood pressure checked that was high. When she got here she was running around 180 systolic. She has no chest pain or shortness of breath or other symptoms. Aspirin Treatment Today: no aspirin today Allergies/Adverse Reactions: amoxicillin Allergy (Unknown, Verified 12/12/24 11:13) Nausea clindamycin Allergy (Unknown, Verified 12/12/24 11:13) Vomiting nitrofurantoin Allergy (Unknown, Verified 12/12/24 11:13) Nausea clonidine Allergy (Verified 12/12/24 11:13) vancomycin Allergy (Verified 12/12/24 11:13) Sulfa (Sulfonamide Antibiotics) Adverse Reaction (Verified 12/12/24 11:13) Nausea IV contrast dye Allergy (Unknown, Uncoded 12/12/24 11:13) Home Medications: Albuterol Sulfate [Proair Digihaler] 2 puffs IH Q6H PRN PRN 03/27/23 [History] Ascorbic Acid 500 mg [Vitamin C 500 MG] 500 mg PO DAILY 03/27/23 [History] Carvedilol 3.125 mg [Coreg 3.125 MG] 6.25 mg PO BID 03/27/23 [History] Cholecalciferol (Vitamin D3) [Weekly-D] 1,250 mcg PO WEEKLY 03/27/23 [History] Cyanocobalamin (Vitamin B-12) [Vitamin B-12] 1,000 mcg PO DAILY 03/27/23 [History] Ezetimibe 10 mg [Zetia 10 MG] 10 mg PO DAILY 03/27/23 [History] Fluticasone/Umeclidin/Vilanter [Trelegy Ellipta 200-62.5-25] 1 puff IH DAILY 03/27/23 [History] Lactobacillus Acidophilus [Acidophilus Lactobacilli] 1 each PO DAILY 03/27/23 [History] Latanoprost [Xalatan] 1 drop OP HS 03/27/23 [History] Levothyroxine Sodium 25 Mcg [Synthroid 25 Mcg] 25 mcg PO DAILY 03/27/23 [History] Multivitamin with Minerals [Myvitalife] 1 each PO DAILY 03/27/23 [History] Nitroglycerin 0.4 mg Tablet [Nitrostat 0.4 MG Tablet] 0.4 mg SL Q5MIN PRN MR X 3 PRN 03/27/23 [History] [place] 3 Polyunsaturated Fatty 1,200 mg PO DAILY 03/27/23 [History] Pyridoxine HCl 100 mg [Vitamin B-6 (Pyridoxine) 100 MG] 100 mg PO DAILY 03/27/23 [History] Amlodipine Besylate 5 mg [Norvasc 5 mg] 5 mg PO DAILY 04/26/24 [History] Desvenlafaxine Succinate [Pristiq] 50 mg PO DAILY 04/26/24 [History] Clobetasol Propionate/Emoll [Clobetasol Emollient 0.05% Crm] 1 applic TOP DAILY 12/12/24 [History] Empagliflozin [Jardiance] 10 mg PO DAILY 12/12/24 [History] Ferrous Sulfate 325 mg PO .3XWEEK 12/12/24 [History] Lactobacillus Acidophilus 1 cap PO DAILY 12/12/24 [History] Mirabegron [Myrbetriq] 50 mg PO DAILY 12/12/24 [History] Torsemide 20 mg PO BID 12/12/24 [History] hydroCHLOROthiazide [Hydrochlorothiazide] 25 mg PO DAILY 12/12/24 [History] Hx Tetanus, Diphtheria Vaccination/Date Given: No (unsure) Hx Influenza Vaccination/Date Given: Yes Hx Pneumococcal Vaccination/Date Given: Yes Travel Risk - International Travel Have you traveled outside of the country in past 3 weeks: No - Emerging Infectious Disease Are you exhibiting symptoms associated with any current EIDs: No Symptoms: Shortness of Breath - Review of Systems Constitutional: No Symptoms Eyes: No Symptoms Respiratory: No Symptoms Cardiac: No Symptoms Abdominal/Gastrointestinal: No Symptoms Musculoskeletal: No Symptoms Skin: No Symptoms Neurological: No Symptoms Psychological: No Symptoms All Other Systems: Reviewed and Negative - Past Medical History Pertinent Past Medical History: Yes Neurological History: No Pertinent History ENT History: Cataracts Cardiac History: Peripheral Vascular Disease Respiratory History: COPD Endocrine Medical History: Hypothyroidism Musculoskeletal History: Osteoarthritis, Osteoporosis GI Medical History: No Pertinent History History: Renal Disease Psycho-Social History: Depression Female Reproductive Disorders: Other Other Medical History: Bilateral hip replacement, stent LLE - Past Surgical History Past Surgical History: Yes Neuro Surgical History: No Pertinent History Cardiac: Vascular Surgery Respiratory: No Pertinent History Gastrointestinal: No Pertinent History Genitourinary: No Pertinent History Musculoskeletal: Joint Replacement Female Surgical History: Hysterectomy Other Surgical History: bladder tuck (botox on bladder), bilateral hip replacement, stent LLE - Social History Smoking Status: Never smoker Exposure to second hand smoke: No Drug Use: none - Social Determinants of Health Will the patient participate in the screening: Yes Do you worry about a steady place to live?: No Do you have any problems with any of the following?: No known problems In the past 12 months,have you had to go without utilities?: No Transportation Issues: No Has anyone in your support network made you feel unsafe?: No Have you or anyone in your house had to go w/o enough food: No - Nursing Vital Signs Nursing Vital Signs: Initial Vital Signs Pulse Rate 96 H 12/12/24 11:14 Respiratory Rate 13 12/12/24 11:14 Blood Pressure 216/87 12/12/24 11:14 O2 Sat by Pulse Oximetry 98 12/12/24 11:14 Pain Scale Pain Intensity 0 - Physical Exam General Appearance: no apparent distress Eye Exam: PERRL/EOMI Respiratory Exam: normal breath sounds, chest tenderness, lungs clear Cardiovascular Exam: regular rate/rhythm, normal heart sounds Gastrointestinal/Abdomen Exam: soft, normal bowel sounds, No tenderness Extremity Exam: normal inspection Neurologic Exam: alert, oriented x 3, cooperative Skin Exam: normal color SpO2: 93 - Course Nursing assessment & vital signs reviewed: Yes EKG Interpreted by Me: RATE, NORMAL AXIS, NORMAL INTERVALS, NORMAL QRS, Non- specific ST Changes Ordered Tests: Active Orders 24 hr Category Date Time Status EKG-ER Only STAT Care 12/12/24 11:59 Active IV Insertion STAT Care 12/12/24 11:10 Active BMP Stat Lab 12/12/24 12:00 Completed CBC W DIFF Stat Lab 12/12/24 12:00 Completed Medication Summary Discontinued Medications Generic Name Dose Route Start Last Admin Trade Name German PRN Reason Stop Dose Admin Furosemide 40 mg 12/12/24 11:58 12/12/24 12:01 Furosemide 40 Mg/4 Ml Vial IV 12/12/24 11:59 40 mg STAT ONE Administration Furosemide Confirm 12/12/24 12:01 Furosemide 40 Mg/4 Ml Vial Administered 12/12/24 12:02 Dose 40 mg .ROUTE .STK-MED ONE Hydralazine HCl 10 mg 12/12/24 13:31 12/12/24 13:38 Hydralazine Hcl 20 Mg/Ml Vial IV 12/12/24 13:32 10 mg STAT ONE Administration Hydralazine HCl Confirm 12/12/24 13:37 Hydralazine Hcl 20 Mg/Ml Vial Administered 12/12/24 13:38 Dose 20 mg .ROUTE .STK-MED ONE Lab/Rad Data: Laboratory Result Diagrams 12/12/24 12:00 12/12/24 12:00 Laboratory Results 12/12/24 12/12/24 Range/Units 12:00 12:00 WBC 7.1 (3.98-10.04) x10^3/uL RBC 4.22 (3.93-5.22) x10^6/uL Hgb 12.8 (11.2-15.7) g/dL Hct 39.6 (34.1-44.9) % MCV 93.8 (79.4-94.8) fL MCH 30.3 (25.6-32.2) pg MCHC 32.3 (32.2-35.5) g/dL RDW 14.2 (11.7-14.4) % Plt Count 258 (182-369) x10^3/uL MPV 11.6 (9.4-12.3) fL Gran % 76.4 H (34.0-71.1) % Immature Gran % (Auto) 0.3 (0.001-0.429) % Nucleat RBC Rel Count 0.0 (0.00-0.2) % Eos # (Auto) 0 L (0.04-0.36) x10^3/uL Immature Gran # (Auto) 0.02 (0.001-0.031) x10^3u/L Absolute Lymphs (auto) 0.83 L (1.18-3.74) x10^3/uL Absolute Monos (auto) 0.82 (0.24-0.86) x10^3/uL Absolute Nucleated RBC 0.00 (0.00-0.012) x10^3u/L Lymphocytes % 11.7 L (19.3-51.7) % Monocytes % 11.5 (4.7-12.5) % Eosinophils % 0.0 L (0.7-5.8) % Basophils % 0.1 (0.1-1.2) % Absolute Granulocytes 5.42 (1.56-6.13) x10^3/uL Basophils # 0.01 (0.01-0.08) x10^3/uL Sodium 139 (135-145) mmol/L Potassium 4.0 (3.5-5.1) mmol/L Chloride 102 (98-107) mmol/L Carbon Dioxide 30 (22-30) mmol/L Anion Gap 11.1 (5-15) MEQ/L BUN 35 H (7-17) mg/dL Creatinine 1.21 H (0.52-1.04) mg/dL Estimated GFR 43.1 ML/MIN Glucose 86 (74-106) mg/dL Calcium 9.3 (8.4-10.2) mg/dL - Progress Progress: improved Air Movement: good Progress Note: Patient was stable throughout stay. I try giving her a dose of Lasix. That brought her blood pressure down just a little bit. She was asymptomatic throughout her stay. Her EKG was done as interpreted by me. There was no acute ST or T changes normal sinus rhythm and no axis deviation. Her lab work all look good. After the Lasix did not work I went ahead and gave her some hydralazine that brought her blood pressure down nicely. I want to send her home with some hydralazine 20 mg. She is able to take those 3 times a day as needed for systolic blood pressure over 180/95. She has an appoint with her primary care doctor tomorrow.She is to continue her current therapy. 12/12/24 15:29 Blood Culture(s) Obtained: No - Departure Departure Disposition: Home Clinical Impression: Hypertensive urgency Condition: Stable Critical Care Time: No Referrals: MASSIEL RODRÍGUEZ MD [[facility] Provider, [facility]] - Follow up/PCP as directed Instructions: High blood pressure emergencies Prescriptions: Hydralazine HCl 25 mg PO TID PRN #30 tablet PRN Reason: Hypertension
[2024-12-12] MEDS ORDERED: APRESOLINE 20 MG/ML INJ ONE (13:37)
[2024-12-12] MEDS: APRESOLINE 20 MG/ML INJ IV ONE (13:38)
[2024-12-12 15:51] VITALS: BP 138/69; PULSE 78; RESP 20; O2SAT 97
== END 2024-12-12 15:53 | disposition home or self-care (01) ==
LOC: ED 11:08
DX: I16.0 Hypertensive urgency (principal); I10 Essential (primary) hypertension; Z79.84 Long term (current) use of oral hypoglycemic drugs; Z79.899 Other long term (current) drug therapy
CPT/HCPCS: 36415; 80048; 85025; 93005; 96374; 96375; 99284; J0360; J1938